=== PATIENT | female | born 1945 | race Caucasian/White ===

== ENCOUNTER 2019-11-27 12:47 | Day surgery (SDC) | payer MEDICARE, MEDICAID, SELFPAY ==
--- NOTE | 2019-11-27 12:58 | US_ITS ---
EXAMINATION: ULTRASOUND-GUIDED PARACENTESIS CLINICAL INFORMATION: Malignant ascites COMPARISON: Previous abdominal ultrasound October 2019 TECHNIQUE: Procedure and risks and benefits including bleeding, infection and low blood pressure were discussed with the patient and informed consent was obtained. The right lower quadrant was prepped and draped in usual sterile fashion. The skin and soft tissues were anesthetized with 1% lidocaine plain. Using ultrasound guidance and a 5 [place] rapid catheter, access to the ascitic fluid was obtained. 1.4 L of dark clear yellow fluid was removed. No diagnostic specimen was sent. FINDINGS: There is a small amount of ascites. IMPRESSION: Ultrasound-guided paracentesis. MTDD
== END 2019-11-27 23:59 ==
LOC: HO.SSS 11-29 13:02
PROVIDERS: Visit Provider Internal Medicine
DX: C85.18 Unspecified B-cell lymphoma, lymph nodes of multiple sites (principal); R18.0 Malignant ascites; J45.909 Unspecified asthma, uncomplicated; I10 Essential (primary) hypertension; Z79.899 Other long term (current) drug therapy
CPT/HCPCS: 49083

== ENCOUNTER 2019-12-09 16:06 | Inpatient (IN) | payer MEDICARE, OTHER, SELFPAY ==
[2019-12-09 19:28] VITALS: BP 179/79; PULSE 75; RESP 16; TEMP 37.1; O2SAT 97; BMI 25.0
[2019-12-09 19:30] VITALS: BP 179/79; PULSE 75; RESP 16; TEMP 37.1; O2SAT 97
--- NOTE | 2019-12-09 21:06 | CT_ITS ---
EXAMINATION: CT SOFT TISSUE NECK WITHOUT CONTRAST CLINICAL INFORMATION: Right parotid sialolithiasis with cellulitis. History of lymphoma. COMPARISON: CT neck 03/18/2019. TECHNIQUE: Helical imaging was performed in the axial plane with generation of coronal and sagittal reformatted images. This CT examination was performed using dose optimization techniques as appropriate, variously including the following: *Automated exposure control. *Adjustment of mA and/or kV according to patient size (this includes techniques or standardized protocols for targeted exams where dose is matched to indication/reason for exam; i.e. extremities or head). *Use of iterative reconstruction technique. DLP: 286 mGy-cm FINDINGS: There is worsening, enlarging, masses in the neck in patient with known lymphoma. 1. In the midline submental location, there is now a soft tissue rounded mass measuring 2.2 cm transverse, sagittal image 27 series 5. This lesion measured 1 cm on CAT scan of 03/18/2019. 2. There are masses in the right and left parotid glands. The largest of these are at the angle of the mandible in the right parotid gland lying within the gland. This measures 2.5 cm, axial image 35 series 2. This lesion previously measured 1.9 cm on CAT scan of 03/18/2019. 3. In the left parotid gland, the largest mass seen centrally inferiorly measuring 2.7 cm, axial image 41 series 2. This mass previously measured 2 cm on CAT scan of 03/18/2019. 4. There are additional multiple smaller but enlarging soft tissue masses external to the parotid glands and the neck bilaterally. There is now significant edema around the right parotid gland and extending into the subcutaneous tissue of the right side of the neck. There is also some fluid or edema extending into the deep soft tissues around the carotid artery and extending inferiorly around the angle of the mandible and the submandibular soft tissues. Some edema is also seen in similar locations on the left but not as significant as seen on the right. There is no calcification seen involving the parotid glands or the expected location of the parotid duct. The partially visualized intracranial structures are normal. The orbital globes and retrobulbar structures are normal. There is normal aeration of the paranasal sinuses. The mastoid air cells and middle ear cavities are normally aerated. There is multilevel degenerative spondylosis of the spine. Superior mediastinum demonstrates vascular calcifications of the aorta and great vessels. There is an irregular nodule in the right upper lobe measuring 0.8 cm, axial image 105 series 2. This measured 0.4 cm on prior CAT scan of 03/18/2019. CT/CT soft tissue neck wo con IMPRESSION: 1. Worsening and enlarging masses in the neck bilateral consistent with history of lymphoma. There is edema around the parotid glands bilateral right worse than left. No calcification seen involving the parotid glands or the expected location of the parotid duct. 2. Enlarging irregular nodule in the right upper lobe now measuring 0.8 cm. Previous measurement 0.4 cm on CAT scan of 03/18/2019.
--- NOTE | 2019-12-09 21:07 | ED.GENADULT ---
HPI - General Adult General Chief complaint: General Medical Stated complaint: FACIAL SWELLING Time Seen by Provider: 12/09/19 20:58 Source: patient and family Mode of arrival: ambulatory Limitations: no limitations History of Present Illness HPI narrative: patient's history of B-cell lymphoma stage III/IV with bilateral cervical lymphadenopathy brought by her daughter for increased swelling and redness of right parotid area for last 3 - 4 days patient was seen by oncologist and sent here for further evaluation. Patient denies any fever, swelling started all of a sudden increases on chewing. patient was given a trial of rituximab which she could not tolerate Related Data Home Medications Medication Instructions Recorded Confirmed amlodipine 1 tab PO DAILY 11/27/19 12/09/19 aspirin 1 tab PO DAILY 11/27/19 12/09/19 carvedilol 1 tab PO BID 11/27/19 12/09/19 ezetimibe 1 tab PO DAILY 11/27/19 12/09/19 furosemide 1 tab PO DAILY 11/27/19 12/09/19 ibuprofen 1 tab PO Q6H PRN 11/27/19 12/09/19 ipratropium-albuterol [Combivent 1 puff INHALATION QID PRN 11/27/19 12/09/19 Respimat] levothyroxine 1 tab PO DAILY 11/27/19 12/09/19 losartan 1 tab PO DAILY 11/27/19 12/09/19 omeprazole 1 cap PO BID 11/27/19 12/09/19 spironolactone 1 tab PO BID 11/27/19 12/09/19 tramadol 1 tab PO Q8H PRN 11/27/19 12/09/19 umeclidinium [Incruse Ellipta] 1 puff INHALATION DAILY 11/27/19 12/09/19 Allergies Allergy/AdvReac Type Severity Reaction Status Date / Time atorvastatin AdvReac Unknown NASAL Verified 11/27/19 12:14 BLEEDING Review of Systems Review of Systems: REVIEW OF SYSTEMS: Pertinent positives and negatives are stated above in the history. GEN: no fevers, chills, fatigue HEENT: no nasal congestion, sore throat, ear pain NEURO: no headache, dizziness, focal weakness PULM: no cough, shortness of breath CV: no chest pain, palpitations, LE edema ABD: no abdominal pain, nausea, vomiting, diarrhea : no dysuria, urgency, frequency SKIN: no rash ROS otherwise negative x 10 PMFSH Past Medical History Medical History Ascites Asthma CAD (coronary artery disease) Cirrhosis of liver with ascites GERD (gastroesophageal reflux disease) High cholesterol Hypertension Hypothyroid Malignant ascites PAD (peripheral artery disease) Surgical History History of carotid endarterectomy History of quadruple bypass Hx of angioplasty Hx of CABG Social History Social History Alcohol intake: never Smoking Status: Never smoker Tobacco Type: Cigarette Packs Per Day: 1 Cigarettes Per Day: 20.0 Years Smoked: 60 Use of substances other than those prescribed or required for medical reasons: No Advance Directives: No Advance Directives Information Provided: Yes Physical Exam Vital Signs: Vital Signs: Vital Signs Temp Pulse Resp BP Pulse Ox 12/09/19 21:42 16 12/09/19 19:30 98.8 F 75 16 179/79 H 97 12/09/19 19:28 98.8 F 75 16 179/79 H 97 Body Mass Index 25.0 Appearance: Alert. Oriented X3. in moderate distress. Eyes: Pupils equal, round and reactive to light. ENT: increased swelling right side of the face patient able to open her mouth more than 2 cm , diffuse swelling with warmth and redness right parotid area spreading from the face all the way to the ear and submandibular area. Neck: Normal inspection. Neck supple. CVS: Normal heart rate and rhythm. Pulses normal. Respiratory: No respiratory distress. Breath sounds normal. Abdomen: Soft and nontender. Skin: Skin warm and dry. Extremities: No lower extremity edema. Good range of movement Neuro: Oriented X 3. No motor deficit. No sensory deficit. Const: General: cooperative and acute distress moderate Nutritional Appearance: average body habitus Orientation/consciousness: oriented to person, oriented to place and oriented to time Neuro: General: oriented to person, oriented to place and oriented to time Course Course Course Narrative: patient with worsening of lymphoma with soft tissue swelling edema around the right parotid gland suggestive of cellulitis with elevated WBC count. Will give IV antibiotics Zosyn plan to admit oncology to follow Medical Decision Making Lab Data Result diagrams: 12/09/19 21:41 12/09/19 22:19 Labs: Lab Results 12/09/19 12/09/19 12/09/19 Range/Units 21:41 21:41 21:41 WBC 18.4 H (4.8-10.8) X10*3/uL RBC 4.55 (4.20-5.50) X10*6/uL Hgb 12.7 (12.0-16.0) g/dl Hct 38.4 (37-47) % MCV 84.4 (80-98) fL MCH 27.9 (27.0-33.0) pg MCHC 33.1 (31.0-35.0) g/dl RDW 15.7 (11.0-16.0) % Plt Count 123 L (160-400) X10*3/uL MPV 10.3 (9.4-12.3) fL Immature Gran % (Auto) 0.3 (0.0-0.4) % Neut % (Auto) 85.1 H (45-73) % Lymph % (Auto) 7.9 L (20-40) % [place] % (Auto) 6.3 (2-11) % Eos % (Auto) 0.1 (0-4) % Baso % (Auto) 0.3 (0-2) % Lymph # (Auto) 1.5 (1.2-4.9) X10*3/uL [place] # (Auto) 1.2 (0.1-1.2) X10*3/uL Eos # (Auto) 0.0 (0.0-0.4) X10*3/uL Baso # (Auto) 0.1 (0.0-0.2) X10*3/uL Abs Immat Gran (auto) 0.06 H (0.00-0.03) X10*3/uL Absolute Neuts (auto) 15.7 H (2.0-8.3) X10*3/uL Absolute Nucleated RBC 0.000 (0.0-0.012) X10*3/uL Nucleated RBC % (auto) 0.0 (0.0-0.2) /100WBC Smear Tech's Comments VERIFIED Sodium Cancelled Potassium Cancelled Chloride Cancelled Carbon Dioxide Cancelled Anion Gap Cancelled BUN Cancelled Creatinine Cancelled Estim Creat Clear Calc Cancelled Estimated GFR Cancelled Random Glucose Cancelled Lactic Acid 1.4 (0.5-2.0) mmol/L Calcium Cancelled 12/09/19 Range/Units 22:19 WBC (4.8-10.8) X10*3/uL RBC (4.20-5.50) X10*6/uL Hgb (12.0-16.0) g/dl Hct (37-47) % MCV (80-98) fL MCH (27.0-33.0) pg MCHC (31.0-35.0) g/dl RDW (11.0-16.0) % Plt Count (160-400) X10*3/uL MPV (9.4-12.3) fL Immature Gran % (Auto) (0.0-0.4) % Neut % (Auto) (45-73) % Lymph % (Auto) (20-40) % [place] % (Auto) (2-11) % Eos % (Auto) (0-4) % Baso % (Auto) (0-2) % Lymph # (Auto) (1.2-4.9) X10*3/uL [place] # (Auto) (0.1-1.2) X10*3/uL Eos # (Auto) (0.0-0.4) X10*3/uL Baso # (Auto) (0.0-0.2) X10*3/uL Abs Immat Gran (auto) (0.00-0.03) X10*3/uL Absolute Neuts (auto) (2.0-8.3) X10*3/uL Absolute Nucleated RBC (0.0-0.012) X10*3/uL Nucleated RBC % (auto) (0.0-0.2) /100WBC Smear Tech's Comments Sodium 135 Potassium 3.1 L Chloride 103 Carbon Dioxide 22 Anion Gap 13 BUN 10 Creatinine 1.06 Estim Creat Clear Calc 40.9 Estimated GFR 51 Random Glucose 107 Lactic Acid (0.5-2.0) mmol/L Calcium 7.7 L Discharge Plan Discharge Clinical Impression: Lymphoma Qualifiers: Lymphoma type: non-Hodgkin Non-Hodgkin lymphoma type: B-cell 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 Qualified Code(s): 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
[2019-12-09 21:42] VITALS: RESP 16
[2019-12-09] MEDS: Morphine Sulfate 4 MG/ML CARTRIDGE IVPUSH (21:42)
[2019-12-09] MEDS: ondansetron HCL 4 MG/2 ML VIAL IVPUSH (21:42)
[2019-12-09] MEDS: 0.9 % Sodium Chloride 1,000 ML 999 ML IVCONT (21:42)
[2019-12-09 21:50] LABS: Basophils Percent Auto 0.3 % (0-2); Eosinophils Percent Auto 0.1 % (0-4); MANUAL DIFF FLAG SCAN; Mean Platelet Volume 10.3 fL (9.4-12.3); PLT CLUMP 1; SCAN SMEAR FLAG 1
[2019-12-09 21:52] LABS: Basophils Absolute Auto 0.1 X10*3/uL (0.0-0.2); Hematocrit 38.4 % (37-47); Hemoglobin 12.7 g/dl (12.0-16.0); Imm Gran Abs Auto 0.06 X10*3/uL (0.00-0.03); Imm Gran Pct Auto 0.3 % (0.0-0.4); Lymphocytes Absolute Auto 1.5 X10*3/uL (1.2-4.9); Lymphocytes Percent Auto 7.9 % (20-40); Mean Corpuscular HGB Conc 33.1 g/dl (31.0-35.0); Mean Corpuscular Hemoglobin 27.9 pg (27.0-33.0); Mean Corpuscular Volume 84.4 fL (80-98); Monocytes Absolute Auto 1.2 X10*3/uL (0.1-1.2); Monocytes Percent Auto 6.3 % (2-11); Neutrophils Absolute Auto 15.7 X10*3/uL (2.0-8.3); Neutrophils Percent Auto 85.1 % (45-73); Platelet Count 123 X10*3/uL (160-400); Red Blood Count 4.55 X10*6/uL (4.20-5.50); Red Cell Distribution Width 15.7 % (11.0-16.0); White Blood Count 18.4 X10*3/uL (4.8-10.8)
[2019-12-09 22:06] LABS: Lactic Acid 1.4 mmol/L (0.5-2.0)
[2019-12-09 22:32] LABS: SLIDE REVIEW VERIFIED
[2019-12-09] MEDS: Piperacillin Sodium/Tazobactam 3.375 GM in 0.9 % Sodium Chloride 50 ML IV (22:42)
[2019-12-09 22:50] LABS: Anion Gap 13 (12-20); Blood Urea Nitrogen 10 mg/dL (9-16); Calcium 7.7 mg/dL (8.4-10.2); Carbon Dioxide 22 mmol/L (22-29); Chloride 103 mmol/L (96-108); Creatinine Clr Calc Pharmacy 40.9; Estimated Glomerular Filt Rate 51; Glucose Random 107 mg/dL (60-115); Potassium 3.1 mmol/l (3.3-5.1); Sodium 135 mmol/L (135-145)
[2019-12-10] VITALS (13 sets, daily range): BP systolic 109–169; BP diastolic 52–72; PULSE 56–71; RESP 16–19; TEMP 36.1–37.4; O2SAT 92–99; BMI 24.7
--- NOTE | 2019-12-10 00:42 | P.HPIM_ITS ---
History of Present Illness Date of Service: 12/10/19 Chief Complaint: Facial swelling this is a 74-year-old female with past medical history of B-cell lymphoma diagnosed recently, hypertension, COPD, liver cirrhosis as well as coronary artery disease status post CABG who presents to the hospital with complaints of 4 day history of progressively worsening swelling of the right face. Patient reports that overnight her swelling worsened, was seen by her oncologist on the 02/08 who asked her to come to the hospital. Patient is having redness, severe pain on the right of face, as well as difficulty swallowing as a result of this swelling. She denies any fever or chills, she has no abdominal pain nausea or v omiting. No diarrhea or constipation. No urinary symptoms and no lower extremity edema. No new weakness numbness or tingling. Patient currently undergoing treatment for B-cell lymphoma but had a bad reaction to the immunotherapy but still wants to try again and therefore wants to discuss this with her oncologist. on arrival to the ED patient hemodynamically stable with no significant abnor mal vitals. Labs are significant for WBC count of 18.4, left shift, potassium of 3.1, CT of the face shows worsening and enlarging masses in the neck bilateral consistent with history of lymphoma. There is edema around the parotid gland bilateral right worse than left. No calcifications seen involving the parotid glands or the expected location of the parotid duct. Enlarging irregular nodule in the right upper lobe now measuring 0.8 cm patient will be admitted for further management past medical history: Hypertension, COPD, liver cirrhosis, B-cell lymphoma, hypothyroidism, peripheral artery disease past surgical history: carotid artery endarterectomy, CABG family history: Denies social history: Comes from home, smokes 1 pack per day, denies any alcohol or illicit drug Review of Systems Review of Systems: Yes all other systems are reviewed and are negative [facility] Medical History Ascites Asthma CAD (coronary artery disease) Cirrhosis of liver with ascites GERD (gastroesophageal reflux disease) High cholesterol Hypertension Hypothyroid Malignant ascites PAD (peripheral artery disease) Surgical History History of carotid endarterectomy History of quadruple bypass Hx of angioplasty Hx of CABG Social History Household Members: Children and Other Household Members Other:: daughter and great granddaughter Housing: Condominium Do you presently have visiting nurse or other home services: No Alcohol intake: never Smoking Status: Never smoker Tobacco Type: Cigarette Packs Per Day: 1 Cigarettes Per Day: 20.0 Years Smoked: 55 Smoked in Last 30 Days: Yes Patient Interested in Nicotine Replacement: No Patient Given Instructions on How to Stop Smoking: Yes Date Education Initiated: 12/10/19 Second Hand Smoke Exposure: Yes Use of substances other than those prescribed or required for medical reasons: No Have you been hit, kicked, punched, or otherwise hurt by someone within the past year? If so, by whom?: No Do you feel safe in your current relationship?: No Current Relationship Is there a partner from a previous relationship who is making you feel unsafe now?: No Are you made to feel afraid or neglected: No Advance Directives: No Advance Directives Information Provided: Yes Do you have thoughts of harming others: None Do you have a plan to hurt others: No Plan Recently lost weight without trying: No Meds Allergies Allergy/AdvReac Type Severity Reaction Status Date / Time atorvastatin AdvReac Unknown NASAL Verified 11/27/19 12:14 BLEEDING Home Medications Medication Instructions Recorded Confirmed Type amlodipine 1 tab PO DAILY 11/27/19 12/09/19 History aspirin 1 tab PO DAILY 11/27/19 12/09/19 History carvedilol 1 tab PO BID 11/27/19 12/09/19 History ezetimibe 1 tab PO DAILY 11/27/19 12/09/19 History furosemide 1 tab PO DAILY 11/27/19 12/09/19 History ibuprofen 1 tab PO Q6H PRN 11/27/19 12/09/19 History ipratropium-albuterol [Combivent 1 puff INHALATION QID PRN 11/27/19 12/09/19 History Respimat] levothyroxine 1 tab PO DAILY 11/27/19 12/09/19 History losartan 1 tab PO DAILY 11/27/19 12/09/19 History omeprazole 1 cap PO BID 11/27/19 12/09/19 History spironolactone 1 tab PO BID 11/27/19 12/09/19 History tramadol 1 tab PO Q8H PRN 11/27/19 12/09/19 History umeclidinium [Incruse Ellipta] 1 puff INHALATION DAILY 11/27/19 12/09/19 History Physical Exam Vital Signs and Narrative: Vital Signs: Last Vital Signs Temp 98.8 F 12/09/19 19:30 Pulse 75 12/09/19 19:30 Resp 16 12/09/19 21:42 BP 179/79 H 12/09/19 19:30 Pulse Ox 97 12/09/19 19:30 Body Mass Index 25.0 Const: General: cooperative and no acute distress Orientation/consciousness: patient oriented x3 HENMT: Other: significant swelling of the right fast as well as neck, erythema, tenderness Eyes: General: appearance normal, both eyes and all related structures Pupils: Equal, round and reactive pupils present Resp: Effort & Inspection: normal respiratory effort and able to speak in complete sentences Auscultation: clear to auscultation bilaterally Cardio: Rate: regular rate Rhythm: regular rhythm GI: Palpation (GI): Soft to palpation Auscultation: normal bowel sounds Skin: General skin exam: no rashes or lesions noted Neuro: General: patient oriented x3 Cranial nerves: Yes Equal, round and reactive pupils present Cognition (Neuro): normal cognition Extrem: General: Yes normal to inspection and Yes no pedal edema Results Labs Labs: Laboratory Tests 12/09/19 12/09/19 12/09/19 21:41 21:41 21:41 WBC 18.4 H RBC 4.55 Hgb 12.7 Hct 38.4 MCV 84.4 MCH 27.9 MCHC 33.1 RDW 15.7 Plt Count 123 L MPV 10.3 Immature Gran % (Auto) 0.3 Neut % (Auto) 85.1 H Lymph % (Auto) 7.9 L [place] % (Auto) 6.3 Eos % (Auto) 0.1 Baso % (Auto) 0.3 Lymph # (Auto) 1.5 [place] # (Auto) 1.2 Eos # (Auto) 0.0 Baso # (Auto) 0.1 Abs Immat Gran (auto) 0.06 H Absolute Neuts (auto) 15.7 H Absolute Nucleated RBC 0.000 Nucleated RBC % (auto) 0.0 Smear Tech's Comments VERIFIED Sodium Cancelled Potassium Cancelled Chloride Cancelled Carbon Dioxide Cancelled Anion Gap Cancelled BUN Cancelled Creatinine Cancelled Estim Creat Clear Calc Cancelled Estimated GFR Cancelled Random Glucose Cancelled Lactic Acid 1.4 Calcium Cancelled 12/09/19 22:19 WBC RBC Hgb Hct MCV MCH MCHC RDW Plt Count MPV Immature Gran % (Auto) Neut % (Auto) Lymph % (Auto) [place] % (Auto) Eos % (Auto) Baso % (Auto) Lymph # (Auto) [place] # (Auto) Eos # (Auto) Baso # (Auto) Abs Immat Gran (auto) Absolute Neuts (auto) Absolute Nucleated RBC Nucleated RBC % (auto) Smear Tech's Comments Sodium 135 Potassium 3.1 L Chloride 103 Carbon Dioxide 22 Anion Gap 13 BUN 10 Creatinine 1.06 Estim Creat Clear Calc 40.9 Estimated GFR 51 Random Glucose 107 Lactic Acid Calcium 7.7 L Imaging soft tissue neck CT: Radiologist's impression: IMPRESSION: 1. Worsening and enlarging masses in the neck bilateral consistent with history of lymphoma. There is edema around the parotid glands bilateral right worse than left. No calcification seen involving the parotid glands or the expected location of the parotid duct. 2. Enlarging irregular nodule in the right upper lobe now measuring 0.8 cm. Previous measurement 0.4 cm on CAT scan of 03/18/2019. 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 # Parotid gland enlargement /cellulitis - CT of the neck shows edema around the parotid gland bilaterally right worse than left - History of B-cell lymphoma following with oncologist currently - patient also has erythema, tenderness, and no swelling concerning for cellulitis plan: - Will start on antibiotics - pain management - oncology consult # B-cell lymphoma - patient reports that she had a bad reaction to immunotherapy, would like to retry it and therefore will consult oncologist for discussion with patient # cirrhosis of liver with ascites - continue spironolactone, and furosemide # hypertension - continue losartan and amlodipine # coronary artery disease status post CAB - continue aspirin, carvedilol # hypothyroidism - continue levothyroxine # GERD - continue omeprazole DVT prophylaxis: Heparin subcu
[2019-12-10 02:03] LABS: SARS COV2 PCR INHOUSE NEGATIVE (Negative)
[2019-12-10] MEDS: Heparin Sodium,Porcine 5,000 UNIT/ML VIAL 5000 UNIT SUBCUT ×2 (02:39→13:06)
[2019-12-10] MEDS: 0.9 % Sodium Chloride 1,000 ML 100 ML IVCONT ×2 (02:39→12:57)
[2019-12-10] MEDS: Morphine Sulfate 4 MG/ML CARTRIDGE IVPUSH ×2 (03:29→13:07)
[2019-12-10] MEDS: Flu Vacc QS2020-21(6mos up)/PF 0.5 ML SYRINGE IM (03:31)
[2019-12-10] MEDS: Levothyroxine Sodium 150 MCG TABLET PO (06:02)
[2019-12-10] MEDS: Albuterol/Iprat 2.5/0.5MG 3 ML AMPUL.NEB INHALE ×4 (07:17→23:55)
[2019-12-10] MEDS: Furosemide 40 MG TABLET PO (08:25)
[2019-12-10] MEDS: amLODIPine Besylate 2.5 MG TABLET PO (08:25)
[2019-12-10] MEDS: Omeprazole 20 MG CAPSULE.DR PO ×2 (08:25→21:41)
[2019-12-10] MEDS: Spironolactone 25 MG TABLET PO ×2 (08:25→21:41)
[2019-12-10] MEDS: Aspirin Enteric Coated 81 MG TABLET.DR PO (08:25)
[2019-12-10] MEDS: cefTRIAXone sodium 1 GM in 0.9 % Sodium Chloride 50 ML IV (08:26)
[2019-12-10] MEDS: Losartan Potassium 25 MG TABLET PO (08:26)
[2019-12-10] MEDS: Potassium Chloride Packet 20 MEQ PACKET 40 MEQ PO (08:26)
[2019-12-10] MEDS: Ezetimibe 10 MG TABLET PO (08:26)
[2019-12-10] MEDS: carvediloL 12.5 MG TABLET PO ×2 (08:26→21:43)
[2019-12-10] MEDS: 0.9 % Sodium Chloride Flush 3 ML SYRINGE IVFLUSH ×2 (08:30→16:48)
--- NOTE | 2019-12-10 10:12 | MHC.CM.PN ---
CM met with patient at the bedside who reports her dtr and granddaughter are living with her and is independent. Patient does not have a HCP and declines filling one out today after education was provided. Discussed discharge plan, home no services. Family will provide transport. PCP is at [facility].
--- NOTE | 2019-12-10 12:56 | PM.HEMONCCN ---
Subjective - Subjective Chief complaint: Painful swelling of neck nodes Patient: known to practice within the last 3 years Consult date: 12/10/19 Primary Care Provider: Unknown Physician HPI - Consult Narrative Reason for consult: Worsening lymphadenopathy, history of lymphoma Narrative: Diana Sharif is a 74 year old female who is admitted for painful swelling of lymph nodes in neck and parotid nodules. Diagnosed with liver cirrhosis, abdominal adenopathy and ascites in August 2018. Paracentesis performed 08/22/2018, ascites was negative for carcinoma. But atypical CD 20 positive B cells which lacks surface light chain expression, negative for CD5 and CD10 comprising 23% of lymphocytes. Raised concern for B-cell lymphoproliferative disorder. Lymph node biopsy from left abdomen performed 11/01/2018. Flow cytometry detected clonal CD 20 positive B-cell population that expresses CD 23 and dim surface lambda light chain, negative for CD5 and CD10. Differential diagnosis includes marginal zone lymphoma and lymphoplasmacytic lymphoma. She was is treated with rituximab, 1st cycle she developed severe allergic/infusion reaction. This was discontinued. Subsequently patient refused all other treatment. She underwent therapeutic paracentesis a month ago for recurrent ascites. She developed painful swelling of neck nodes in the last 2-3 days. This was rather abrupt in onset, associated with fatigue lack of appetite but no reports of fever or chills. She is not having any hoarseness of voice or difficulty swallowing food. Review of Systems - Constitutional Reports as per HPI, Reports no additional constitutional complaints - ENT Reports dental pain, Reports facial pain, Denies epistaxis, Reports neck pain, Denies sinus pressure, Denies sore throat - Cardiovascular Reports no additional cardiovascular complaints - Respiratory Reports no additional respiratory complaints - Gastrointestinal Reports no additional gastrointestinal complaints, Denies abdominal pain Oncology Screenings - ECOG Performance Status ECOG Performance Status: 3 [facility] Medical History: Medical History (Last Updated 12/10/19 @ 06:56 by Debra Knight MD) Ascites Asthma CAD (coronary artery disease) Cirrhosis of liver with ascites GERD (gastroesophageal reflux disease) High cholesterol Hypertension Hypothyroid Malignant ascites PAD (peripheral artery disease) Surgical History: Surgical History (Last Reviewed 12/10/19 @ 06:52 by Debra Knight MD) History of carotid endarterectomy History of quadruple bypass Hx of angioplasty Hx of CABG Smoking status: Never smoker Home Medications and Allergies Current Medications: Current Medications Generic Name Dose Route Start Last Admin Trade Name Freq PRN Reason Stop Dose Admin Acetaminophen 650 mg 12/10/19 01:06 Acetaminophen 325 Mg Tablet PO Q6H PRN Pain, Mild (Pain Scale 1-3) Albuterol/Ipratropium 3 ml 12/10/19 12:00 12/10/19 11:10 Albuterol/Iprat 2.5/0.5mg 3 Ml Ampul.Neb INHALE 3 ml RQ6H PAULIE Administration Amlodipine Besylate 2.5 mg 12/10/19 09:00 12/10/19 08:25 Amlodipine Besylate 2.5 Mg Tablet PO 2.5 mg DAILY PAULIE Administration Protocol Aspirin 81 mg 12/10/19 09:00 12/10/19 08:25 Aspirin Enteric Coated 81 Mg Tablet.Dr PO 81 mg DAILY PAULIE Administration Carvedilol 12.5 mg 12/10/19 09:00 12/10/19 08:26 Carvedilol 12.5 Mg Tablet PO 12.5 mg BID PAULIE Administration Protocol Docusate Sodium 100 mg 12/10/19 01:06 Docusate Sodium 100 Mg Capsule PO DAILY PRN Constipation Ezetimibe 10 mg 12/10/19 09:00 12/10/19 08:26 Ezetimibe 10 Mg Tablet PO 10 mg DAILY PAULIE Administration Furosemide 40 mg 12/10/19 09:00 12/10/19 08:25 Furosemide 40 Mg Tablet PO 40 mg DAILY PAULIE Administration Protocol Heparin Sodium (Porcine) 5,000 unit 12/10/19 01:06 12/10/19 02:39 Heparin Sodium,Porcine 5,000 Unit/Ml Vial SUBCUT 5,000 unit Q12H PAULIE Administration Sodium Chloride 1,000 mls @ 100 mls/hr 12/10/19 01:06 12/10/19 02:39 Ns IVCONT 100 mls/hr .Q10H PAULIE Administration Ceftriaxone Sodium 1 gm/ 50 mls @ 100 mls/hr 12/10/19 07:15 12/10/19 08:56 Sodium Chloride IV Infused Q24H PAULIE Infusion Levothyroxine Sodium 150 mcg 12/10/19 06:30 12/10/19 06:02 Levothyroxine Sodium 150 Mcg Tablet PO 150 mcg DAILY@0630 PAULIE Administration Losartan Potassium 25 mg 12/10/19 09:00 12/10/19 08:26 Losartan Potassium 25 Mg Tablet PO 25 mg DAILY PAULIE Administration Protocol Morphine Sulfate 4 mg 10/27/20 01:06 12/10/19 03:29 Morphine Sulfate 4 Mg/Ml Cartridge IVPUSH 4 mg Q4H PRN Administration Pain, Severe (Pain Scale 7-10) Non-Formulary Medication 1 puff 12/10/19 09:00 Umeclidinium [Incruse Ellipta] INHALE DAILY [facility] Omeprazole 20 mg 12/10/19 09:00 12/10/19 08:25 Omeprazole 20 Mg Capsule.Dr PO 20 mg BID PAULIE Administration Ondansetron HCl 4 mg 12/10/19 01:06 Ondansetron Hcl 4 Mg/2 Ml Vial IVPUSH Q8H PRN Nausea and Vomiting Sodium Chloride 3 ml 12/10/19 08:00 12/10/19 08:30 0.9 % Sodium Chloride Flush 3 Ml Syringe IVFLUSH 3 ml QSHIFT [facility] Administration Spironolactone 25 mg 12/10/19 09:00 12/10/19 08:25 Spironolactone 25 Mg Tablet PO 25 mg BID [facility] Administration Protocol Tramadol HCl 50 mg 12/10/19 01:06 Tramadol Hcl 50 Mg Tablet PO Q8H PRN severe pain Home Medications Medication Instructions Recorded Confirmed Type amlodipine 1 tab PO DAILY 11/27/19 12/09/19 History aspirin 1 tab PO DAILY 11/27/19 12/09/19 History carvedilol 1 tab PO BID 11/27/19 12/09/19 History ezetimibe 1 tab PO DAILY 11/27/19 12/09/19 History furosemide 1 tab PO DAILY 11/27/19 12/09/19 History ibuprofen 1 tab PO Q6H PRN 11/27/19 12/09/19 History ipratropium-albuterol [Combivent 1 puff INHALATION QID PRN 11/27/19 12/09/19 History Respimat] levothyroxine 1 tab PO DAILY 11/27/19 12/09/19 History losartan 1 tab PO DAILY 11/27/19 12/09/19 History omeprazole 1 cap PO BID 11/27/19 12/09/19 History spironolactone 1 tab PO BID 11/27/19 12/09/19 History tramadol 1 tab PO Q8H PRN 11/27/19 12/09/19 History umeclidinium [Incruse Ellipta] 1 puff INHALATION DAILY 11/27/19 12/09/19 History Allergies Allergy/AdvReac Type Severity Reaction Status Date / Time atorvastatin AdvReac Unknown NASAL Verified 11/27/19 12:14 BLEEDING Physical Exam Vital signs: Vital Signs Temp 97.1 F 12/10/19 11:46 Pulse 56 12/10/19 11:46 Resp 18 12/10/19 11:46 BP 114/52 L 12/10/19 11:46 Pulse Ox 96 12/10/19 11:46 Intake & Output 12/09/19 12/10/19 12/10/19 18:59 06:59 18:59 Intake Total 1170 / 1170 50 / 50 Balance 1170 / 1170 50 / 50 Intake: Intake, Oral Amount 120 / 120 Intake, IV Amount 1050 / 1050 50 / 50 Piperacillin Sodium/Tazobactam 50 / 50 3.375 gm In 0.9 % Sodium Chloride 50 ml @ 100 mls/hr IV ONCE ONE Rx#:[id number] cefTRIAXone sodium 1 gm In 0.9 50 / 50 % Sodium Chloride 50 ml @ 100 mls/hr IV Q24H [facility] Rx#: [id number] 0.9 % Sodium Chloride 1,000 ml 1000 / 1000 @ 999 mls/hr IVCONT .Q1H1M [facility] Rx#:[id number] Other: Weight 61.5 kg Weight 61.5 kg - Constitutional Present: mild distress - Routine HEENT Exam Head: Present: normal inspection Eye: Present: EOMI - Routine Neck Exam Present: lymphadenopathy, tenderness, swelling. Absent: full ROM - Routine Respiratory Exam Present: decreased breath sounds. Absent: accessory muscle use - Routine Cardiovascular Exam Cardiovascular: Present: S1, S2 - Routine Abdominal Exam Present: soft. Absent: mass - Routine Extremities Exam Present: pedal edema Hem/Onc Consult Result - Labs CBC & Chem 7: 12/09/19 21:41 12/09/19 22:19 Labs: Short CBC 12/09/19 Range/Units 21:41 WBC 18.4 H (4.8-10.8) X10*3/uL Hgb 12.7 (12.0-16.0) g/dl Hct 38.4 (37-47) % Plt Count 123 L (160-400) X10*3/uL BMP 12/09/19 12/09/19 21:41 22:19 Sodium Cancelled 135 Potassium Cancelled 3.1 L Chloride Cancelled 103 Carbon Dioxide Cancelled 22 BUN Cancelled 10 Creatinine Cancelled 1.06 Calcium Cancelled 7.7 L Assessment and Plan (1) Lymphoma Status: Chronic Qualifiers: Lymphoma type: non-Hodgkin Non-Hodgkin lymphoma type: B-cell 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 Bone marrow biopsy performed November 2018 revealed involvement by B-cell non-Hodgkin lymphoma, favor marginal zone lymphoma. Stage III/IV. CT neck performed 12/09/2019 revealed: Worsening and enlarging masses in the neck bilateral consistent with history of lymphoma. There is edema around the parotid glands bilateral right worse than left. She has significant inflammation/? Infectious etiology with clinical signs of warmth and tenderness of the neck nodes. She is on ceftriaxone and she reports some improvement in the pain. Await ID input before proceeding with biopsy of the lymph node. Since her previous biopsy was over a year ago and she has not received any treatment, it would be advisable to repeat biopsy at this time. I have discussed this with patient and her granddaughter at the bedside.
[2019-12-10 13:45] LABS: Lactate Dehydrogenase 178 U/L (122-220)
--- NOTE | 2019-12-10 15:18 | P.CNID_ITS ---
History of Present Illness Data of Consult Service Date: 12/10/19 Requesting physician: Gilda Mcleod Primary Care Provider: Unknown Physician HPI Reason for consult: swelling face She has 2-3 days worsening swelling face submandibular She has no high grade fever or chills She has no injury to area Scan shows lymphoma concern Review of Systems Review of Systems: Yes all other systems are reviewed and are negative PMFSH Past Medical History Medical History Ascites Asthma CAD (coronary artery disease) Cirrhosis of liver with ascites GERD (gastroesophageal reflux disease) High cholesterol Hypertension Hypothyroid Malignant ascites PAD (peripheral artery disease) Surgical History Surgical History History of carotid endarterectomy History of quadruple bypass Hx of angioplasty Hx of CABG Social History Social History Household Members: Children and Other Housing: Condominium Alcohol intake: never Smoking Status: Never smoker Tobacco Type: Cigarette Packs Per Day: 1 Cigarettes Per Day: 20.0 Years Smoked: 55 Second Hand Smoke Exposure: Yes service: No Current occupational status: retired [employer] Allergies Allergy/AdvReac Type Severity Reaction Status Date / Time atorvastatin AdvReac Unknown NASAL Verified 11/27/19 12:14 BLEEDING Home Medications Medication Instructions Recorded Confirmed Type Combivent Respimat 1 puff INHALATION QID PRN 11/27/19 12/09/19 History Incruse Ellipta 1 puff INHALATION DAILY 11/27/19 12/09/19 History amlodipine 1 tab PO DAILY 11/27/19 12/09/19 History aspirin 1 tab PO DAILY 11/27/19 12/09/19 History carvedilol 1 tab PO BID 11/27/19 12/09/19 History ezetimibe 1 tab PO DAILY 11/27/19 12/09/19 History furosemide 1 tab PO DAILY 11/27/19 12/09/19 History ibuprofen 1 tab PO Q6H PRN 11/27/19 12/09/19 History levothyroxine 1 tab PO DAILY 11/27/19 12/09/19 History losartan 1 tab PO DAILY 11/27/19 12/09/19 History omeprazole 1 cap PO BID 11/27/19 12/09/19 History spironolactone 1 tab PO BID 11/27/19 12/09/19 History tramadol 1 tab PO Q8H PRN 11/27/19 12/09/19 History Physical Exam Vital Signs: Vital Signs: Vital Signs Temp Pulse Resp BP Pulse Ox 12/10/19 11:46 97.1 F 56 18 114/52 L 96 12/10/19 08:26 62 138/67 12/10/19 08:25 62 138/67 12/10/19 08:00 99.4 F 62 18 138/67 93 12/10/19 03:35 98.0 F 68 18 166/72 H 95 12/10/19 03:29 18 12/10/19 02:21 97 F 71 18 155/64 H 94 12/10/19 00:00 99.3 F 66 17 169/64 H 99 12/09/19 21:42 16 12/09/19 19:30 98.8 F 75 16 179/79 H 97 12/09/19 19:28 98.8 F 75 16 179/79 H 97 Body Mass Index 24.7 Const: General: cooperative HENMT: Other: swollen mandibular area firm Face and sinus: Yes normal facial exam Mouth: Normal oral and palatal mucosa present Throat: Yes posterior oropharynx normal Eyes: General: appearance normal, both eyes and all related structures Resp: Effort & Inspection: normal respiratory effort Cardio: Rate: regular rate Rhythm: regular rhythm GI: Inspection: Yes normal to inspection Skin: General skin exam: no rashes or lesions noted Extrem: General: Yes normal to inspection Assessment and Plan (1) Lymphoma: Qualifiers: 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 Lymphoma type: non-Hodgkin Non-Hodgkin lymphoma type: B-cell Qualified Code(s): C83.01 - Small cell B-cell lymphoma, lymph nodes of head, face, and neck Status: Chronic She has swelling in glands She has no evidence of infection She has pain opening mouth Stop antibiotics Biopsy and check pathology (2) Parotid gland enlargement: Status: Acute (3) Hypothyroid: Status: Acute Results Labs CBC & Chem 7: 12/11/19 05:36 12/11/19 05:36 Labs: Short CBC 12/09/19 Range/Units 21:41 WBC 18.4 H (4.8-10.8) X10*3/uL Hgb 12.7 (12.0-16.0) g/dl Hct 38.4 (37-47) % Plt Count 123 L (160-400) X10*3/uL BMP 12/09/19 12/09/19 21:41 22:19 Sodium Cancelled 135 Potassium Cancelled 3.1 L Chloride Cancelled 103 Carbon Dioxide Cancelled 22 BUN Cancelled 10 Creatinine Cancelled 1.06 Calcium Cancelled 7.7 L
--- NOTE | 2019-12-10 17:13 | HO.PM.IMPN ---
Subjective Subjective Date of Service: 12/10/19 Interval History: Submandibular swelling Review of Systems still has swleling ,seems slightly improving , denies any shortness of breath Physical Exam Vital Signs: Vital Signs: Vital Signs Temp Pulse Resp BP Pulse Ox 12/10/19 15:28 97.8 F 59 16 109/53 L 96 12/10/19 11:46 97.1 F 56 18 114/52 L 96 12/10/19 08:26 62 138/67 12/10/19 08:25 62 138/67 12/10/19 08:00 99.4 F 62 18 138/67 93 12/10/19 03:35 98.0 F 68 18 166/72 H 95 12/10/19 03:29 18 12/10/19 02:21 97 F 71 18 155/64 H 94 12/10/19 00:00 99.3 F 66 17 169/64 H 99 12/09/19 21:42 16 12/09/19 19:30 98.8 F 75 16 179/79 H 97 12/09/19 19:28 98.8 F 75 16 179/79 H 97 Body Mass Index 24.7 Physical exam: Heent: Submandibular swelling. No fluctuation. Cvs: [id number], [id number] , no murmur res: clear to auscultation ,no rales or rhonchii abd: no rebound or guarding ,nt, bs present. ext pulses present , no cyanosis neuro: axo3 , nonfocal. Objective Data Current Medications Generic Name Dose Route Start Last Admin Trade Name Kurtisq PRN Reason Stop Dose Admin Acetaminophen 650 mg 12/10/19 01:06 Acetaminophen 325 Mg Tablet PO Q6H PRN Pain, Mild (Pain Scale 1-3) Albuterol/Ipratropium 3 ml 12/10/19 12:00 12/10/19 16:58 Albuterol/Iprat 2.5/0.5mg 3 Ml Ampul.Neb INHALE 3 ml RQ6H PAULIE Administration Amlodipine Besylate 2.5 mg 12/10/19 09:00 12/10/19 08:25 Amlodipine Besylate 2.5 Mg Tablet PO 2.5 mg DAILY PAULIE Administration Protocol Aspirin 81 mg 12/10/19 09:00 12/10/19 08:25 Aspirin Enteric Coated 81 Mg Tablet. PO 81 mg DAILY PAULIE Administration Carvedilol 12.5 mg 12/10/19 09:00 12/10/19 08:26 Carvedilol 12.5 Mg Tablet PO 12.5 mg BID PAULIE Administration Protocol Docusate Sodium 100 mg 12/10/19 01:06 Docusate Sodium 100 Mg Capsule PO DAILY PRN Constipation Ezetimibe 10 mg 12/10/19 09:00 12/10/19 08:26 Ezetimibe 10 Mg Tablet PO 10 mg DAILY PAULIE Administration Furosemide 40 mg 12/10/19 09:00 12/10/19 08:25 Furosemide 40 Mg Tablet PO 40 mg DAILY PAULIE Administration Protocol Heparin Sodium (Porcine) 5,000 unit 12/10/19 01:06 12/10/19 13:06 Heparin Sodium,Porcine 5,000 Unit/Ml Vial SUBCUT 5,000 unit Q12H PAULIE Administration Sodium Chloride 1,000 mls @ 100 mls/hr 12/10/19 01:06 12/10/19 12:57 Ns IVCONT 100 mls/hr .Q10H PAULIE Administration Levothyroxine Sodium 150 mcg 12/10/19 06:30 12/10/19 06:02 Levothyroxine Sodium 150 Mcg Tablet PO 150 mcg DAILY@0630 PAULIE Administration Losartan Potassium 25 mg 12/10/19 09:00 12/10/19 08:26 Losartan Potassium 25 Mg Tablet PO 25 mg DAILY [facility] Administration Protocol Morphine Sulfate 4 mg 12/10/19 01:06 12/10/19 13:07 Morphine Sulfate 4 Mg/Ml Cartridge IVPUSH 4 mg Q4H PRN Administration Pain, Severe (Pain Scale 7-10) Non-Formulary Medication 1 puff 12/10/19 09:00 Umeclidinium [Incruse Ellipta] INHALE DAILY [facility] Omeprazole 20 mg 12/10/19 09:00 12/10/19 08:25 Omeprazole 20 Mg Capsule.Dr PO 20 mg BID PAULIE Administration Ondansetron HCl 4 mg 12/10/19 01:06 Ondansetron Hcl 4 Mg/2 Ml Vial IVPUSH Q8H PRN Nausea and Vomiting Sodium Chloride 3 ml 12/10/19 08:00 12/10/19 16:48 0.9 % Sodium Chloride Flush 3 Ml Syringe IVFLUSH 3 ml QSHIFT PAULIE Administration Spironolactone 25 mg 12/10/19 09:00 12/10/19 08:25 Spironolactone 25 Mg Tablet PO 25 mg BID PAULIE Administration Protocol Tramadol HCl 50 mg 12/10/19 01:06 Tramadol Hcl 50 Mg Tablet PO Q8H PRN severe pain Labs CBC & Chem 7: 12/09/19 21:41 12/09/19 22:19 Assessment and Plan (1) Parotid gland enlargement: Status: Acute (2) Lymphoma: Status: Chronic Assessment and Plan: 74-year-old female with B-cell lymphoma who presents to the hospital with facial swelling. 1. Lyphoma vs cellulitis - CT of the neck shows edema around the parotid gland bilaterally right worse than left - History of B-cell lymphoma following with oncologist currently - patient also has erythema, tenderness, and no swelling concerning for cellulitis continue on antibiotics,pain management, ID and oncology eval. 2. B-cell lymphoma: noted to be thought patient reports that she had a bad reaction to immunotherapy, would like to retry it and therefore will consult oncologist for discussion with patient 3. cirrhosis of liver with ascites: continue spironolactone, and furosemide 4. hypertension: continue losartan and amlodipine 5. coronary artery disease status post CAB: continue aspirin, carvedilol 6. hypothyroidism- continue levothyroxine 7. GERD: continue omeprazole
[2019-12-11] VITALS (8 sets, daily range): BP systolic 129–176; BP diastolic 60–75; PULSE 58–82; RESP 16–19; TEMP 36.4–36.7; O2SAT 92–100
[2019-12-11] MEDS: Heparin Sodium,Porcine 5,000 UNIT/ML VIAL 5000 UNIT SUBCUT ×2 (01:23→13:25)
[2019-12-11] MEDS: 0.9 % Sodium Chloride 1,000 ML 100 ML IVCONT ×2 (02:21→11:09)
[2019-12-11] MEDS: Albuterol/Iprat 2.5/0.5MG 3 ML AMPUL.NEB INHALE ×3 (06:06→17:31)
[2019-12-11 06:21] LABS: MANUAL DIFF FLAG NO
[2019-12-11] MEDS: Levothyroxine Sodium 150 MCG TABLET PO (06:22)
[2019-12-11 06:37] LABS: Basophils Percent Auto 0.4 % (0-2); Eosinophils Absolute Auto 0.1 X10*3/uL (0.0-0.4); Eosinophils Percent Auto 0.7 % (0-4); Hematocrit 31.4 % (37-47); Imm Gran Abs Auto 0.06 X10*3/uL (0.00-0.03); Imm Gran Pct Auto 0.6 % (0.0-0.4); Lymphocytes Absolute Auto 1.4 X10*3/uL (1.2-4.9); Lymphocytes Percent Auto 14.2 % (20-40); Mean Corpuscular HGB Conc 31.8 g/dl (31.0-35.0); Mean Corpuscular Hemoglobin 27.7 pg (27.0-33.0); Mean Platelet Volume 11.2 fL (9.4-12.3); Monocytes Absolute Auto 0.7 X10*3/uL (0.1-1.2); Monocytes Percent Auto 7.4 % (2-11); Neutrophils Absolute Auto 7.6 X10*3/uL (2.0-8.3); Neutrophils Percent Auto 76.7 % (45-73); Platelet Count 114 X10*3/uL (160-400); Red Blood Count 3.61 X10*6/uL (4.20-5.50); Red Cell Distribution Width 15.9 % (11.0-16.0); White Blood Count 9.9 X10*3/uL (4.8-10.8)
[2019-12-11 06:58] LABS: Anion Gap 15 (12-20); Blood Urea Nitrogen 14 mg/dL (9-16); Calcium 7.7 mg/dL (8.4-10.2); Carbon Dioxide 23 mmol/L (22-29); Chloride 106 mmol/L (96-108); Creatinine Clr Calc Pharmacy 34.5; Estimated Glomerular Filt Rate 42; Glucose Random 79 mg/dL (60-115); Potassium 3.6 mmol/l (3.3-5.1); Sodium 140 mmol/L (135-145)
[2019-12-11] MEDS: Omeprazole 20 MG CAPSULE.DR PO ×2 (08:28→21:23)
[2019-12-11] MEDS: Spironolactone 25 MG TABLET PO ×2 (08:28→21:23)
[2019-12-11] MEDS: amLODIPine Besylate 2.5 MG TABLET PO (08:28)
[2019-12-11] MEDS: Losartan Potassium 25 MG TABLET PO (08:28)
[2019-12-11] MEDS: Ezetimibe 10 MG TABLET PO (08:29)
[2019-12-11] MEDS: Furosemide 40 MG TABLET PO (08:29)
[2019-12-11] MEDS: Aspirin Enteric Coated 81 MG TABLET.DR PO (08:29)
[2019-12-11] MEDS: carvediloL 12.5 MG TABLET PO ×2 (08:29→21:24)
--- NOTE | 2019-12-11 12:51 | MHC.CM.PN ---
Patient's discharge plan is home no services. family will provide transport.
--- NOTE | 2019-12-11 15:53 | HO.PM.IMPN ---
Subjective Subjective Date of Service: 12/11/19 Interval History: Submandibular swelling Review of Systems Swelling in the neck area seems improving, denies any fever or chills. Physical Exam Vital Signs: Vital Signs: Vital Signs Temp Pulse Resp BP Pulse Ox 12/11/19 15:31 97.5 F 69 19 141/62 H 97 12/11/19 11:51 97.9 F 60 18 133/63 100 12/11/19 07:46 97.7 F 72 18 145/67 H 97 12/11/19 03:24 97.9 F 58 16 129/62 92 12/10/19 23:32 98.3 F 58 16 122/60 96 12/10/19 21:43 64 135/63 12/10/19 21:41 64 135/63 12/10/19 20:00 98.3 F 56 19 129/60 92 Body Mass Index 24.7 Physical exam: Heent: Submandibular swelling. No fluctuation. Cvs: [id number], [id number] , no murmur res: clear to auscultation ,no rales or rhonchii abd: no rebound or guarding ,nt, bs present. ext pulses present , no cyanosis neuro: axo3 , nonfocal. Objective Data Current Medications Generic Name Dose Route Start Last Admin Trade Name Freq PRN Reason Stop Dose Admin Acetaminophen 650 mg 12/10/19 01:06 Acetaminophen 325 Mg Tablet PO Q6H PRN Pain, Mild (Pain Scale 1-3) Albuterol/Ipratropium 3 ml 12/10/19 12:00 12/11/19 11:50 Albuterol/Iprat 2.5/0.5mg 3 Ml Ampul.Neb INHALE 3 ml RQ6H PAULIE Administration Amlodipine Besylate 2.5 mg 12/10/19 09:00 12/11/19 08:28 Amlodipine Besylate 2.5 Mg Tablet PO 2.5 mg DAILY PAULIE Administration Protocol Aspirin 81 mg 12/10/19 09:00 12/11/19 08:29 Aspirin Enteric Coated 81 Mg Tablet.Dr PO 81 mg DAILY PAULIE Administration Carvedilol 12.5 mg 12/10/19 09:00 12/11/19 08:29 Carvedilol 12.5 Mg Tablet PO 12.5 mg BID PAULIE Administration Protocol Docusate Sodium 100 mg 10/27/20 01:06 Docusate Sodium 100 Mg Capsule PO DAILY PRN Constipation Ezetimibe 10 mg 12/10/19 09:00 12/11/19 08:29 Ezetimibe 10 Mg Tablet PO 10 mg DAILY PAULIE Administration Furosemide 40 mg 12/10/19 09:00 12/11/19 08:29 Furosemide 40 Mg Tablet PO 40 mg DAILY PAULIE Administration Protocol Heparin Sodium (Porcine) 5,000 unit 12/10/19 01:06 12/11/19 13:25 Heparin Sodium,Porcine 5,000 Unit/Ml Vial SUBCUT 5,000 unit Q12H PAULIE Administration Levothyroxine Sodium 150 mcg 12/10/19 06:30 12/11/19 06:22 Levothyroxine Sodium 150 Mcg Tablet PO 150 mcg DAILY@0630 PAULIE Administration Losartan Potassium 25 mg 12/10/19 09:00 12/11/19 08:28 Losartan Potassium 25 Mg Tablet PO 25 mg DAILY PAULIE Administration Protocol Non-Formulary Medication 1 puff 12/10/19 09:00 Umeclidinium [Incruse Ellipta] INHALE DAILY [facility] Omeprazole 20 mg 12/10/19 09:00 12/11/19 08:28 Omeprazole 20 Mg Capsule.Dr PO 20 mg BID [facility] Administration Ondansetron HCl 4 mg 12/10/19 01:06 Ondansetron Hcl 4 Mg/2 Ml Vial IVPUSH Q8H PRN Nausea and Vomiting Sodium Chloride 3 ml 12/10/19 08:00 12/11/19 11:09 0.9 % Sodium Chloride Flush 3 Ml Syringe IVFLUSH Not Given QSHIFT [facility] Spironolactone 25 mg 12/10/19 09:00 12/11/19 08:28 Spironolactone 25 Mg Tablet PO 25 mg BID [facility] Administration Protocol Tramadol HCl 50 mg 12/10/19 01:06 Tramadol Hcl 50 Mg Tablet PO Q8H PRN severe pain Labs CBC & Chem 7: 12/11/19 05:36 12/11/19 05:36 Microbiology Microbiology Results: Microbiology 12/09/19 22:19 Blood - Venous Blood Culture - Preliminary No growth after 24 hours. 12/09/19 21:41 Blood - Venous Blood Culture - Preliminary No growth after 24 hours. Assessment and Plan (1) Parotid gland enlargement: Status: Acute (2) Lymphoma: Status: Chronic Assessment and Plan: 74-year-old female with B-cell lymphoma who presents to the hospital with facial swelling. 1. Lyphoma vs cellulitis: CT of the neck shows edema around the parotid gland bilaterally right worse than left - History of B-cell lymphoma following with oncologist currently Initially patient was thought to be cellulitis and started on IV antibiotic and subsequently was seen by infectious disease thought to be more like malignancy rather than infection. Discussed with the Oncology-patient needs biopsy in the morning. NPO past midnight Hold DVT chemoprophylaxis in anticipation of biopsy , placed on mechanical devices 2. B-cell lymphoma: noted to be thought patient reports that she had a bad reaction to immunotherapy, would like to retry it and therefore will consult oncologist for discussion with patient 3. cirrhosis of liver with ascites: continue spironolactone, and furosemide 4. hypertension: continue losartan and amlodipine 5. coronary artery disease status post CAB: continue carvedilol, hold asa -needs biopsy 6. hypothyroidism- continue levothyroxine 7. GERD: continue omeprazole
[2019-12-11] MEDS: 0.9 % Sodium Chloride Flush 3 ML SYRINGE IVFLUSH ×2 (18:48→21:34)
--- NOTE | 2019-12-12 | US_ITS ---
PROCEDURE: ULTRASOUND-GUIDED RIGHT NECK LYMPH NODE BIOPSY. CLINICAL INFORMATION: Bilateral parotid masses and right neck lymph nodes. Previous history of B-cell lymphoma and refused treatment after allergic response to drugs. COMPARISON: Nothing recent. Previous CT neck without IV contrast 03/18/2019. TECHNIQUE: Following explaining ultrasound-guided right neck lymph node biopsy procedure, benefits and risk, a written consent was obtained. Patient was placed in left decubitus view and preliminary ultrasound imaging was obtained through the right neck. A right intraparotid mass and a right neck lymph node slightly inferiorly to the parotid gland were identified. The skin is inflamed. The area of the right neck lymph node was marked on the skin, cleaned and draped in usual sterile manner. 1% local Xylocaine was injected at the marked site. Through a small skin incision a 20-gauge 10 inch long needle was inserted and a 4-5 pass neck biopsy was performed. Fluid collected was sent for flow cytometry and cytosol solution for pathology evaluation. Postbiopsy complete hemostasis achieved at puncture site. Patient tolerated procedure extremely well. Simple band aid applied postprocedure. FINDINGS: There are 2 masses seen one an intraparotid lesion measuring 2.28 cm and a right neck lymph node slightly inferiorly. The right neck lymph node was biopsied with 5 passes performed. US/US guide needle placement IMPRESSION: Successful ultrasound-guided right neck lymph node core biopsy performed. Sample collected was sent to flow cytometry and cytosol solution.
--- NOTE | 2019-12-12 | US_ITS ---
PROCEDURE: ULTRASOUND-GUIDED RIGHT NECK LYMPH NODE BIOPSY. CLINICAL INFORMATION: Bilateral parotid masses and right neck lymph nodes. Previous history of B-cell lymphoma and refused treatment after allergic response to drugs. COMPARISON: Nothing recent. Previous CT neck without IV contrast 03/18/2019. TECHNIQUE: Following explaining ultrasound-guided right neck lymph node biopsy procedure, benefits and risk, a written consent was obtained. Patient was placed in left decubitus view and preliminary ultrasound imaging was obtained through the right neck. A right intraparotid mass and a right neck lymph node slightly inferiorly to the parotid gland were identified. The skin is inflamed. The area of the right neck lymph node was marked on the skin, cleaned and draped in usual sterile manner. 1% local Xylocaine was injected at the marked site. Through a small skin incision a 20-gauge 10 inch long needle was inserted and a 4-5 pass neck biopsy was performed. Fluid collected was sent for flow cytometry and cytosol solution for pathology evaluation. Postbiopsy complete hemostasis achieved at puncture site. Patient tolerated procedure extremely well. Simple band aid applied postprocedure. FINDINGS: There are 2 masses seen one an intraparotid lesion measuring 2.28 cm and a right neck lymph node slightly inferiorly. The right neck lymph node was biopsied with 5 passes performed. US/US biopsy lymph node IMPRESSION: Successful ultrasound-guided right neck lymph node core biopsy performed. Sample collected was sent to flow cytometry and cytosol solution.
[2019-12-12 03:29] VITALS: BP 151/57; PULSE 78; RESP 19; TEMP 36.4; O2SAT 97
[2019-12-12] MEDS: Levothyroxine Sodium 150 MCG TABLET PO (06:25)
[2019-12-12 08:00] VITALS: BP 162/72; PULSE 73; RESP 18; TEMP 37.1; O2SAT 98
[2019-12-12 09:21] VITALS: BP 162/72; PULSE 73
[2019-12-12] MEDS: 0.9 % Sodium Chloride Flush 3 ML SYRINGE IVFLUSH ×2 (09:21→15:43)
[2019-12-12] MEDS: Spironolactone 25 MG TABLET PO (09:21)
[2019-12-12 09:22] VITALS: BP 162/72; PULSE 73
[2019-12-12] MEDS: Losartan Potassium 25 MG TABLET PO (09:22)
[2019-12-12] MEDS: Omeprazole 20 MG CAPSULE.DR PO (09:22)
[2019-12-12] MEDS: Ezetimibe 10 MG TABLET PO (09:22)
[2019-12-12] MEDS: Furosemide 40 MG TABLET PO (09:22)
[2019-12-12] MEDS: amLODIPine Besylate 2.5 MG TABLET PO (09:22)
[2019-12-12] MEDS: carvediloL 12.5 MG TABLET PO (09:22)
[2019-12-12 11:54] VITALS: BP 158/75; PULSE 92; RESP 18; TEMP 36.7; O2SAT 99
[2019-12-12] MEDS: Albuterol/Iprat 2.5/0.5MG 3 ML AMPUL.NEB INHALE (12:18)
[2019-12-12] MEDS: Lidocaine HCl 1 % MPF 5 ML VIAL SUBCUT (13:21)
[2019-12-12 15:53] VITALS: BP 152/69; PULSE 67; RESP 18; TEMP 36.6; O2SAT 100
--- NOTE | 2019-12-12 17:00 | HO.PM.IMPN ---
Subjective Subjective Date of Service: 12/12/19 Interval History: Neck mass Review of Systems Neck masses-swelling and erythema seems improved significantly Physical Exam Vital Signs: Vital Signs: Vital Signs Temp Pulse Resp BP Pulse Ox 12/12/19 15:53 97.8 F 67 18 152/69 H 100 12/12/19 11:54 98.0 F 92 18 158/75 H 99 12/12/19 09:22 73 162/72 H 12/12/19 09:21 73 162/72 H 12/12/19 08:00 98.7 F 73 18 162/72 H 98 12/12/19 03:29 97.6 F 78 19 151/57 H 97 12/11/19 23:28 97.5 F 82 19 157/75 H 97 12/11/19 21:24 70 176/60 H 12/11/19 21:23 70 176/60 H 12/11/19 19:20 98.0 F 76 19 143/71 H 96 Body Mass Index 24.7 Objective Data Current Medications Generic Name Dose Route Start Last Admin Trade Name Fre PRN Reason Stop Dose Admin Acetaminophen 650 mg 12/10/19 01:06 Acetaminophen 325 Mg Tablet PO Q6H PRN Pain, Mild (Pain Scale 1-3) Albuterol/Ipratropium 3 ml 12/10/19 12:00 12/12/19 12:18 Albuterol/Iprat 2.5/0.5mg 3 Ml Ampul.Neb INHALE 3 ml RQ6H PAULIE Administration Amlodipine Besylate 2.5 mg 12/10/19 09:00 12/12/19 09:22 Amlodipine Besylate 2.5 Mg Tablet PO 2.5 mg DAILY PAULIE Administration Protocol Aspirin 81 mg 12/10/19 09:00 12/12/19 09:21 Aspirin Enteric Coated 81 Mg Tablet.Dr PO Not Given DAILY PAULIE Carvedilol 12.5 mg 12/10/19 09:00 12/12/19 09:22 Carvedilol 12.5 Mg Tablet PO 12.5 mg BID PAULIE Administration Protocol Docusate Sodium 100 mg 12/10/19 01:06 Docusate Sodium 100 Mg Capsule PO DAILY PRN Constipation Ezetimibe 10 mg 12/10/19 09:00 12/12/19 09:22 Ezetimibe 10 Mg Tablet PO 10 mg DAILY PAULIE Administration Furosemide 40 mg 12/10/19 09:00 12/12/19 09:22 Furosemide 40 Mg Tablet PO 40 mg DAILY [facility] Administration Protocol Heparin Sodium (Porcine) 5,000 unit 12/10/19 01:06 12/12/19 13:09 Heparin Sodium,Porcine 5,000 Unit/Ml Vial SUBCUT Not Given Q12H [facility] Levothyroxine Sodium 150 mcg 12/10/19 06:30 12/12/19 06:25 Levothyroxine Sodium 150 Mcg Tablet PO 150 mcg DAILY@0630 [facility] Administration Losartan Potassium 25 mg 12/10/19 09:00 12/12/19 09:22 Losartan Potassium 25 Mg Tablet PO 25 mg DAILY [facility] Administration Protocol Non-Formulary Medication 1 puff 12/10/19 09:00 Umeclidinium [Incruse Ellipta] INHALE DAILY [facility] Omeprazole 20 mg 12/10/19 09:00 12/12/19 09:22 Omeprazole 20 Mg Capsule.Dr PO 20 mg BID [facility] Administration Ondansetron HCl 4 mg 12/10/19 01:06 Ondansetron Hcl 4 Mg/2 Ml Vial IVPUSH Q8H PRN Nausea and Vomiting Sodium Chloride 3 ml 12/10/19 08:00 12/12/19 15:43 0.9 % Sodium Chloride Flush 3 Ml Syringe IVFLUSH 3 ml QSHIFT [facility] Administration Spironolactone 25 mg 12/10/19 09:00 12/12/19 09:21 Spironolactone 25 Mg Tablet PO 25 mg BID [facility] Administration Protocol Tramadol HCl 50 mg 12/10/19 01:06 Tramadol Hcl 50 Mg Tablet PO Q8H PRN severe pain Labs CBC & Chem 7: 12/11/19 05:36 12/11/19 05:36 Microbiology Microbiology Results: Microbiology 12/09/19 22:19 Blood - Venous Blood Culture - Preliminary No growth after 48 hours. 12/09/19 21:41 Blood - Venous Blood Culture - Preliminary No growth after 48 hours.
--- NOTE | 2019-12-12 17:46 | PM.DS ---
DS: Providers Provider Date of admission: 12/10/19 00:39 Primary care physician: Unknown Physician Consults: 12/10/19 01:06 Consult to Physician Routine Consulting Provider: Yen Ferreira Reason for consultation: worsening lymphoma Has provider been notified: No 12/10/19 10:01 Consult to Infectious Diseases Routine Consulting Provider: Danuta Umana Reason for consultation: ? Neck cellulitis vs lympoma med reaction Has provider been notified: No DS: Diagnosis Discharge Diagnosis (1) Parotid gland enlargement: Status: Acute (2) Lymphoma: Status: Chronic DS: Summary Hospital Course Hospital Course: HPI:74-year-old female with past medical history of B-cell lymphoma diagnosed recently, hypertension, COPD, liver cirrhosis as well as coronary artery disease status post CABG who presents to the hospital with complaints of 4 day history of progressively worsening swelling of the right face. Patient reports that overnight her swelling worsened, was seen by her oncologist on the 02/08 who asked her to come to the hospital. Patient is having redness, severe pain on the right of face, as well as difficulty swallowing as a result of this swelling. She denies any fever or chills, she has no abdominal pain nausea or vomiting. No diarrhea or constipation. No urinary symptoms and no lower extremity edema. No new weakness numbness or tingling. Patient currently undergoing treatment for B-cell lymphoma but had a bad reaction to the immunotherapy but still wants to try again and therefore wants to discuss this with her oncologist. on arrival to the ED patient hemodynamically stable with no significant abnormal vitals. Labs are significant for WBC count of 18.4, left shift, potassium of 3.1, CT of the face shows worsening and enlarging masses in the neck bilateral consistent with history of lymphoma. There is edema around the parotid gland bilateral right worse than left. No calcifications seen involving the parotid glands or the expected location of the parotid duct. Enlarging irregular nodule in the right upper lobe now measuring 0.8 cm. 74-year-old female with B-cell lymphoma who presents to the hospital with facial swelling. 1. Lyphoma vs cellulitis: CT of the neck shows edema around the parotid gland bilaterally right worse than left - History of B-cell lymphoma following with oncologist currently. Patient was initially started on IV antibiotics for suspicion of cellulitis, furthermore patient was seen by both Oncology as well as ID: Thought to be probably patient has malignancy rather than cellulitis. Patient is status post biopsy Patient was initially started on IV antibiotics for suspicion of probable infection in some mandibular area subsequently seen by infectious disease and oncology the suspicion is more likely malignancy-neck mass was biopsied today patient is to follow-up with Dr. Ferreira outpatient for further management. Patient is to follow-up with biopsy outpatient with Dr. Ferreira. Above management discussed with the patient in detail length she understand and in agreement with the above plan, time spent 50 minutes and 50% time spent on counseling. Significant findings: As above. Procedures performed: None. Treatment and response: As above. Complications: None. Time Spent with Patient Time attestation: Total time spent providing and/or coordinating discharge services: Physical Exam Vital Signs: Vital Signs: Vital Signs Temp Pulse Resp BP Pulse Ox 12/12/19 15:53 97.8 F 67 18 152/69 H 100 12/12/19 11:54 98.0 F 92 18 158/75 H 99 12/12/19 09:22 73 162/72 H 12/12/19 09:21 73 162/72 H 12/12/19 08:00 98.7 F 73 18 162/72 H 98 12/12/19 03:29 97.6 F 78 19 151/57 H 97 12/11/19 23:28 97.5 F 82 19 157/75 H 97 12/11/19 21:24 70 176/60 H 12/11/19 21:23 70 176/60 H 12/11/19 19:20 98.0 F 76 19 143/71 H 96 Body Mass Index 24.7 Physical exam: heent: neck area swelling -seems improving Cvs: rrr, [id number] , no murmur res: clear to auscultation ,no rhonchii or wheezing abd: no rebound or guarding ,nt, bs present. ext pulses present , no cyanosis neuro: axo3 , nonfocal. DS: Data Data Completed and Pending Pending studies at discharge: Pending at discharge 12/12/19 14:30 Surgical [PTH] Routine Labs on day of discharge: Labs from last 24 hours 12/12/19 14:30 Leuk/Lymph Viability Pending Leuk/Lym Source Pending Leuk/Lym Sample Descrip Pending Leuk/Lym # of Markers Pending Leuk/Lym Markers Pending L/L Additional Markers Pending Leuk/Lym Gating Strategy Pending Leuk/Lym Comment Pending Leuk/Lym Interpretation Pending Preliminary micro results at discharge 12/09/19 22:19 Blood Culture - Preliminary Blood - Venous No growth after 48 hours. 12/09/19 21:41 Blood Culture - Preliminary Blood - Venous No growth after 48 hours. Discharge Plan Discharge Patient Disposition: Home, Self-Care Referrals: Physician,Unknown [Primary Care Provider] - Discharge Medications: Continued furosemide 40 mg tablet 1 tab PO DAILY RF: 0 carvedilol 12.5 mg tablet 1 tab PO BID RF: 0 amlodipine 2.5 mg tablet 1 tab PO DAILY RF: 0 aspirin 81 mg tablet,delayed release (DR/EC) 1 tab PO DAILY RF: 0 tramadol 50 mg tablet 1 tab PO Q8H PRN (Reason: severe pain) RF: 0 spironolactone 25 mg tablet 1 tab PO BID RF: 0 levothyroxine 150 mcg tablet 1 tab PO DAILY RF: 0 losartan 25 mg tablet 1 tab PO DAILY RF: 0 omeprazole 20 mg capsule,delayed release(DR/EC) 1 cap PO BID RF: 0 ibuprofen 600 mg tablet 1 tab PO Q6H PRN (Reason: pain) RF: 0 ezetimibe 10 mg tablet 1 tab PO DAILY RF: 0 Incruse Ellipta 62.5 mcg/actuation blister with device 1 puff inhalation DAILY RF: 0 Combivent Respimat 20-100 mcg/actuation mist 1 puff inhalation QID PRN (Reason: Shortness Of Breath) RF: 0 Discharge Orders: Discharge Order (Routine); Ordered 12/12/19 Ordered By: Gilda Mcleod Diet: advance to your usual diet Activity on Discharge: As tolerated Visit Report Forms: Patient Portal Discharge page Care Plan Goals: Patient was initially started on IV antibiotics for suspicion of probable infection in some mandibular area subsequently seen by infectious disease and oncology the suspicion is more likely malignancy-neck mass was biopsied today patient is to follow-up with Dr. Ferreira outpatient for further management. Patient is to follow-up with biopsy outpatient with Dr. Ferreira. Health Concerns: As above. Plan of Treatment: As above.
[2019-12-13 17:52] LABS: LLE Markers 23
== END 2019-12-12 19:00 | disposition home or self-care (01) | DRG 155 ==
LOC: HO.ED 12-10 00:28 → HO.IMC 12-10 01:02 → HO.S3 12-11 12:07
PROVIDERS: Internal Medicine; Admitting Provider Internal Medicine; Emergency Provider Internal Medicine; Visit Provider Internal Medicine
DX: K11.1 Hypertrophy of salivary gland (principal); C83.01 Small cell B-cell lymphoma, lymph nodes of head, face, and neck; L03.221 Cellulitis of neck; R18.8 Other ascites; I25.10 Atherosclerotic heart disease of native coronary artery without angina pectoris; F17.210 Nicotine dependence, cigarettes, uncomplicated; K21.9 Gastro-esophageal reflux disease without esophagitis; E03.9 Hypothyroidism, unspecified; Z71.6 Tobacco abuse counseling; Z20.828 Contact with and (suspected) exposure to other viral communicable diseases; K74.60 Unspecified cirrhosis of liver; Z23 Encounter for immunization; Z95.1 Presence of aortocoronary bypass graft; Z79.1 Long term (current) use of non-steroidal anti-inflammatories (NSAID); Z79.82 Long term (current) use of aspirin; Z79.891 Long term (current) use of opiate analgesic; Z79.899 Other long term (current) drug therapy
CPT/HCPCS: 36415; 38505; 70490; 76942; 80048; 83605; 83615; 85025; 87040; 87635; 88184; 88185; 88189; 88300; 88305; 88341; 88342; 88360; 90686; 96361; 96365; 96375; 99285; J2270; J2405

== ENCOUNTER → 2019-12-25 15:22 | Outpatient (BNVA) | payer MEDICARE, OTHER, SELFPAY | PROVIDERS: Visit Provider Internal Medicine Cardiovascular Disease | DX: I42.9 Cardiomyopathy, unspecified (principal); I73.9 Peripheral vascular disease, unspecified; K74.60 Unspecified cirrhosis of liver; C83.01 Small cell B-cell lymphoma, lymph nodes of head, face, and neck | CPT/HCPCS: 99212 ==

== ENCOUNTER 2020-01-31 07:30 | Day surgery (SDC) | payer MEDICARE, OTHER, SELFPAY ==
[2020-01-30 12:34] VITALS: BMI 23.8
[2020-01-30 12:35] VITALS: BMI 23.8
[2020-01-31] VITALS (8 sets, daily range): BP systolic 144–169; BP diastolic 51–67; PULSE 50–66; RESP 16–18; TEMP 36.3–36.9; O2SAT 98–99
--- NOTE | 2020-01-31 | US_ITS ---
EXAMINATION: ULTRASOUND-GUIDED PARACENTESIS. CLINICAL INFORMATION: Malignant ascites. COMPARISON: None. TECHNIQUE: Following explaining ultrasound-guided thoracentesis procedure, benefits and risk, a written consent was obtained. Patient was placed supine on ultrasound table and preliminary ultrasound imaging was obtained through the abdomen. An optimal site was selected along the right lower quadrant laterally and marked. The marked site was cleaned and draped in usual sterile manner. 1% lidocaine was injected puncture site. A small skin incision a 5 Kinyarwanda Yueh catheter was inserted into the peritoneal space. After observing fluid return stylet was removed and catheter connected to vacuum bottle via connecting cannula. After obtaining all fluid and observing no more fluid return, catheter was removed and complete hemostasis achieved at puncture site. Patient tolerated procedure well. Sterile bandage applied postprocedure. FINDINGS: On preliminary ultrasound imaging there is a moderate amount of free fluid. Approximately 1.7 L of dark yellowish fluid was removed from the right lower quadrant. None of this fluid was sent to lab. US/US paracentesis abd w/image IMPRESSION: Successful ultrasound-guided therapeutic paracentesis performed of the proximal 1.7 L of documented fluid removed. None of this fluid was sent to lab.
[2020-01-31 07:49] LABS: Hemoglobin 10.1 g/dl (12.0-16.0); Mean Corpuscular Hemoglobin 28.3 pg (27.0-33.0); PLT CLUMP 1; Red Blood Count 3.57 X10*6/uL (4.20-5.50); SCAN SMEAR FLAG 1
[2020-01-31 07:51] LABS: Basophils Absolute Auto 0.1 X10*3/uL (0.0-0.2); Basophils Percent Auto 0.8 % (0-2); Eosinophils Absolute Auto 0.2 X10*3/uL (0.0-0.4); Eosinophils Percent Auto 3.2 % (0-4); Hematocrit 30.6 % (37-47); Imm Gran Abs Auto 0.02 X10*3/uL (0.00-0.03); Imm Gran Pct Auto 0.3 % (0.0-0.4); Lymphocytes Absolute Auto 1.8 X10*3/uL (1.2-4.9); Lymphocytes Percent Auto 28.2 % (20-40); MANUAL DIFF FLAG NO; Mean Corpuscular Volume 85.7 fL (80-98); Mean Platelet Volume 10.7 fL (9.4-12.3); Monocytes Absolute Auto 0.6 X10*3/uL (0.1-1.2); Monocytes Percent Auto 9.6 % (2-11); Neutrophils Absolute Auto 3.6 X10*3/uL (2.0-8.3); Neutrophils Percent Auto 57.9 % (45-73); Platelet Count 105 X10*3/uL (160-400); Red Cell Distribution Width 14.3 % (11.0-16.0); White Blood Count 6.3 X10*3/uL (4.8-10.8)
[2020-01-31 07:55] LABS: INTERNATIONAL NORM RATIO 1.2 (0.9-1.1); Prothrombin Time 13.8 SEC (10.8-13.0)
[2020-01-31] MEDS: Lidocaine HCl 1 % MPF 5 ML VIAL SUBCUT (09:33)
== END 2020-01-31 11:50 | disposition home or self-care (01) ==
PROVIDERS: Visit Provider Radiology Diagnostic Radiology
DX: C85.18 Unspecified B-cell lymphoma, lymph nodes of multiple sites (principal); R18.0 Malignant ascites
CPT/HCPCS: 36415; 49083; 85025; 85610; 85730

== ENCOUNTER 2020-03-13 09:21 | Day surgery (SDC) | payer MEDICARE, OTHER, SELFPAY ==
[2020-03-13 10:03] LABS: MANUAL DIFF FLAG NO
[2020-03-13 10:08] VITALS: BMI 23.7
[2020-03-13 10:09] LABS: Basophils Percent Auto 0.5 % (0-2); Eosinophils Absolute Auto 0.1 X10*3/uL (0.0-0.4); Eosinophils Percent Auto 1.6 % (0-4); Hematocrit 33.2 % (37-47); Hemoglobin 10.5 g/dl (12.0-16.0); Imm Gran Abs Auto 0.01 X10*3/uL (0.00-0.03); Imm Gran Pct Auto 0.2 % (0.0-0.4); Lymphocytes Absolute Auto 1.3 X10*3/uL (1.2-4.9); Lymphocytes Percent Auto 21.5 % (20-40); Mean Corpuscular HGB Conc 31.6 g/dl (31.0-35.0); Mean Corpuscular Hemoglobin 27.3 pg (27.0-33.0); Mean Corpuscular Volume 86.2 fL (80-98); Mean Platelet Volume 10.4 fL (9.4-12.3); Monocytes Absolute Auto 0.5 X10*3/uL (0.1-1.2); Monocytes Percent Auto 8.2 % (2-11); Neutrophils Absolute Auto 4.2 X10*3/uL (2.0-8.3); Platelet Count 113 X10*3/uL (160-400); Red Blood Count 3.85 X10*6/uL (4.20-5.50); Red Cell Distribution Width 14.6 % (11.0-16.0); White Blood Count 6.1 X10*3/uL (4.8-10.8)
[2020-03-13 10:12] LABS: INTERNATIONAL NORM RATIO 1.2 (0.9-1.1); Prothrombin Time 14.4 SEC (10.8-13.0)
[2020-03-13 10:14] LABS: Partial Thromboplastin Time 31.3 SEC (24.1-38.0)
--- NOTE | 2020-03-13 10:14 | US_ITS ---
EXAMINATION: ULTRASOUND-GUIDED PARACENTESIS. CLINICAL INFORMATION: Ascites. COMPARISON: None TECHNIQUE: Following explaining ultrasound-guided thoracentesis procedure, benefits and risk, a written consent was obtained. Patient was placed supine on ultrasound stretcher and preliminary ultrasound imaging was obtained. An optimal site was selected along the right upper/mid quadrant and marked. The marked site was cleaned and draped in usual sterile manner. 1% lidocaine was injected at puncture site. Through a small skin incision a 5 Czech Yueh catheter was inserted into the peritoneal space. After observing fluid return, stylet was withdrawn and catheter connected to vacuum bottle. After obtaining all fluid and observing no more fluid remaining, catheter was withdrawn and complete hemostasis achieved at puncture site. Sterile bandage applied postprocedure. Patient tolerated procedure extremely well. FINDINGS: On pre and the ultrasound imaging there is small to moderate amount of fluid especially in upper abdomen. Ultrasound-guided paracentesis performed with approximately 2.3 L of yellowish fluid drained. The fluid collected was sent to lab as per referring physician's orders. US/US paracentesis abd w/image IMPRESSION: Successful ultrasound-guided therapeutic paracentesis performed. Fluid collected was sent to lab for further analysis.
[2020-03-13 11:35] VITALS: BP 165/59; PULSE 63; RESP 16; TEMP 36.9; O2SAT 98
[2020-03-13] MEDS: Lidocaine HCl 1 % MPF 5 ML VIAL SUBCUT (11:42)
[2020-03-13 11:50] VITALS: BP 161/60; PULSE 64; RESP 16; O2SAT 98
[2020-03-13 12:20] VITALS: BP 169/61; PULSE 70; RESP 16; O2SAT 97
[2020-03-13 12:50] VITALS: BP 156/67; PULSE 66; RESP 16; O2SAT 100
[2020-03-13 13:33] VITALS: BP 160/63; PULSE 65; RESP 16; TEMP 36.4; O2SAT 98
== END 2020-03-13 23:59 | disposition home or self-care (01) ==
PROVIDERS: Radiology Diagnostic Radiology; Visit Provider Internal Medicine
DX: R19.8 Other specified symptoms and signs involving the digestive system and abdomen (principal)
CPT/HCPCS: 36415; 49083; 85025; 85610; 85730

== ENCOUNTER 2020-04-20 11:29 | Day surgery (SDC) | payer MEDICARE, OTHER, SELFPAY ==
--- NOTE | ~2020-04-20 | US_ITS ---
EXAMINATION: US-GUIDED PARACENTESIS CLINICAL INFORMATION: Ascites. COMPARISON: None. TECHNIQUE: Following explaining ultrasound-guided paracentesis procedure, benefits and risks, a written consent was obtained. Patient was placed supine on ultrasound stretcher and preliminary ultrasound imaging was obtained through the abdomen. An optimal site was selected along right mid abdomen and marked. The marked site was cleaned and draped in usual sterile manner. 1% lidocaine was injected at the puncture site. Through a small skin incision, a 5 [place] [employer] catheter was advanced into the peritoneal space. After observing fluid return, stylet was withdrawn and catheter connected to vacuum bottle via connecting cannula. After obtaining all fluid and observing no more fluid return, catheter was withdrawn and complete hemostasis achieved at the puncture site. Sterile band-aid applied at the puncture site. Patient tolerated procedure extremely well. FINDINGS: On preliminary ultrasound imaging, there is moderate ascites. Approximately 3.9 L of clear yellowish fluid was drained from the right lower quadrant without immediate complications. US/US paracentesis abd w/image IMPRESSION: Successful ultrasound-guided therapeutic paracentesis performed with approximately 3.9 L of clear yellowish fluid drained. None of this fluid was sent to lab.
[2020-04-20 11:51] VITALS: BMI 52.7
[2020-04-20 12:25] LABS: MANUAL DIFF FLAG NO
[2020-04-20 12:34] LABS: Basophils Absolute Auto 0.1 X10*3/uL (0.0-0.2); Basophils Percent Auto 0.9 % (0-2); Eosinophils Absolute Auto 0.1 X10*3/uL (0.0-0.4); Eosinophils Percent Auto 1.1 % (0-4); Hematocrit 34.4 % (37-47); Hemoglobin 11.1 g/dl (12.0-16.0); Imm Gran Abs Auto 0.02 X10*3/uL (0.00-0.03); Imm Gran Pct Auto 0.4 % (0.0-0.4); Lymphocytes Absolute Auto 1.3 X10*3/uL (1.2-4.9); Lymphocytes Percent Auto 23.9 % (20-40); Mean Corpuscular HGB Conc 32.3 g/dl (31.0-35.0); Mean Corpuscular Hemoglobin 27.3 pg (27.0-33.0); Mean Corpuscular Volume 84.7 fL (80-98); Mean Platelet Volume 10.3 fL (9.4-12.3); Monocytes Absolute Auto 0.4 X10*3/uL (0.1-1.2); Monocytes Percent Auto 7.8 % (2-11); Neutrophils Absolute Auto 3.7 X10*3/uL (2.0-8.3); Neutrophils Percent Auto 65.9 % (45-73); Platelet Count 124 X10*3/uL (160-400); Red Blood Count 4.06 X10*6/uL (4.20-5.50); Red Cell Distribution Width 15.2 % (11.0-16.0); White Blood Count 5.6 X10*3/uL (4.8-10.8)
[2020-04-20 12:35] LABS: INTERNATIONAL NORM RATIO 1.2 (0.9-1.1); Prothrombin Time 13.8 SEC (10.8-13.0)
[2020-04-20 12:37] LABS: Partial Thromboplastin Time 30.6 SEC (24.1-38.0)
[2020-04-20] MEDS: Lidocaine HCl 1 % MPF 5 ML VIAL SUBCUT (13:53)
[2020-04-20 13:55] VITALS: BP 160/66; PULSE 68; RESP 20; TEMP 37.2; O2SAT 97
[2020-04-20 14:10] VITALS: BP 160/65; PULSE 67; RESP 20; O2SAT 96
[2020-04-20 14:25] VITALS: BP 165/66; PULSE 66; RESP 20; O2SAT 96
[2020-04-20 14:40] VITALS: BP 165/68; PULSE 66; RESP 18
[2020-04-20 14:55] VITALS: BP 168/69; PULSE 68; RESP 18; O2SAT 97
[2020-04-20 15:29] VITALS: BP 167/70; PULSE 69; RESP 18
== END 2020-04-20 15:39 | disposition home or self-care (01) ==
PROVIDERS: Visit Provider Radiology Diagnostic Radiology
DX: R18.8 Other ascites (principal); C85.10 Unspecified B-cell lymphoma, unspecified site; K74.60 Unspecified cirrhosis of liver; J45.909 Unspecified asthma, uncomplicated; I25.10 Atherosclerotic heart disease of native coronary artery without angina pectoris; I10 Essential (primary) hypertension; Z95.1 Presence of aortocoronary bypass graft; Z98.61 Coronary angioplasty status; Z79.51 Long term (current) use of inhaled steroids; Z79.82 Long term (current) use of aspirin; Z79.899 Other long term (current) drug therapy; Z88.8 Allergy status to other drugs, medicaments and biological substances
CPT/HCPCS: 36415; 49083; 85025; 85610; 85730

== ENCOUNTER 2020-05-11 11:18 | Day surgery (SDC) | payer MEDICARE, OTHER, SELFPAY ==
--- NOTE | ~2020-05-11 | US_ITS ---
EXAMINATION: ULTRASOUND-GUIDED PARACENTESIS CLINICAL INFORMATION: Ascites COMPARISON: Previous exam most recent 04/20/2020 TECHNIQUE: Procedure risks and benefits including bleeding, infection and low blood pressure were discussed with the patient and informed consent was obtained. The right lower quadrant was prepped and draped in the usual sterile fashion. The skin and soft tissues were anesthetized with 1% lidocaine plain. Using ultrasound guidance and a 5-Greek rapid centesis catheter, access to the ascitic fluid was obtained. 3.9 L of clear yellow fluid was removed. No diagnostic specimen was sent. FINDINGS: There is a moderate amount of ascites. US/US paracentesis abd w/image IMPRESSION: Ultrasound-guided paracentesis.
[2020-05-11 13:03] VITALS: BMI 25.7
[2020-05-11 13:50] VITALS: BP 150/49; PULSE 56; RESP 14; TEMP 37.2; O2SAT 97
[2020-05-11] MEDS: Lidocaine HCl 1 % MPF 5 ML VIAL SUBCUT (13:51)
--- NOTE | 2020-05-11 13:59 | HO.RADPN ---
RADIOLOGY Narrative Narrative: RLQ paracentesis performed using 5 Fr rapidcentesis catheter. 3.9L clear yellow fluid removed. No specimen sent.
[2020-05-11 14:05] VITALS: BP 165/57; PULSE 47; RESP 16; O2SAT 96
[2020-05-11 14:32] VITALS: BP 154/59; PULSE 58; RESP 20; O2SAT 97
[2020-05-11 14:48] VITALS: BP 155/59; PULSE 58; RESP 20; O2SAT 98
== END 2020-05-11 15:00 | disposition home or self-care (01) ==
PROVIDERS: Radiology Diagnostic Radiology; Visit Provider Internal Medicine
DX: R18.8 Other ascites (principal); K74.60 Unspecified cirrhosis of liver; I10 Essential (primary) hypertension; J45.909 Unspecified asthma, uncomplicated
CPT/HCPCS: 49083

== ENCOUNTER 2020-05-27 12:37 | Day surgery (SDC) | payer MEDICARE, OTHER, SELFPAY ==
--- NOTE | ~2020-05-27 | US_ITS ---
EXAMINATION: ULTRASOUND INSERTION OF PLEURX CATHETER CLINICAL INFORMATION: Lymphoma. Cirrhosis. Malignant ascites. COMPARISON: None TECHNIQUE: Procedure and risks and benefits including bleeding, infection and low blood pressure were discussed with the patient and informed consent was obtained. All elements of maximal sterile barrier technique followed including use of cap, mask, sterile gown, sterile gloves, a sterile full body drape and hand hygiene. Also followed skin preparation with 2% chlorhexidine for cutaneous antisepsis, and sterile ultrasound preparation with sterile gel and probe cover when applicable. The right lower quadrant was prepped and draped in the usual sterile fashion. The skin and soft tissues were anesthetized with 1% lidocaine plain. Using ultrasound guidance and a 5 Slovak rapid centesis catheter, access to the ascitic fluid was obtained. The skin and soft tissues of the more inferior anterior right lower quadrant were anesthetized with 1% lidocaine plain. A small incision was made. A subcutaneous tunnel from the second to the first incision was anesthetized with 1% lidocaine plain. Using a tunneler, a 15 Slovak Pleurx catheter was tunneled from the second to the first incision. An 035 guidewire was advanced through the 5 Slovak catheter into the peritoneal cavity. Following serial dilatation and through a peel-away sheath, Pleurx catheter was advanced into the peritoneal cavity. The initial incision was closed using a 3-0 absorbable subcuticular suture. The second incision was closed using a 3-0 absorbable mattress suture. 3.6 L of serosanguineous fluid was removed. Patient received Versed 0.5 mg and fentanyl 25 mcg intravenously during the procedure and 1 g IV Kefzol. Total sedation time was 25 minutes. No diagnostic specimen was sent. FINDINGS: There is a moderate amount of ascites. US/US insertion pluerx cath IMPRESSION: Ultrasound-guided right lower quadrant tunneled Pleurx catheter placement.
[2020-05-27 13:14] LABS: MANUAL DIFF FLAG NO
[2020-05-27 13:19] LABS: Basophils Percent Auto 0.5 % (0-2); Eosinophils Absolute Auto 0.1 X10*3/uL (0.0-0.4); Eosinophils Percent Auto 0.6 % (0-4); Hematocrit 32.4 % (37-47); Hemoglobin 10.5 g/dl (12.0-16.0); Imm Gran Abs Auto 0.05 X10*3/uL (0.00-0.03); Imm Gran Pct Auto 0.6 % (0.0-0.4); Lymphocytes Absolute Auto 1.4 X10*3/uL (1.2-4.9); Lymphocytes Percent Auto 16.8 % (20-40); Mean Corpuscular HGB Conc 32.4 g/dl (31.0-35.0); Mean Corpuscular Hemoglobin 27.6 pg (27.0-33.0); Mean Platelet Volume 9.5 fL (9.4-12.3); Monocytes Absolute Auto 0.6 X10*3/uL (0.1-1.2); Monocytes Percent Auto 7.5 % (2-11); Neutrophils Absolute Auto 6.1 X10*3/uL (2.0-8.3); Platelet Count 106 X10*3/uL (160-400); Red Blood Count 3.81 X10*6/uL (4.20-5.50); Red Cell Distribution Width 16.3 % (11.0-16.0); White Blood Count 8.2 X10*3/uL (4.8-10.8)
[2020-05-27 13:26] LABS: INTERNATIONAL NORM RATIO 1.1 (0.9-1.1); Prothrombin Time 12.8 SEC (10.8-13.0)
[2020-05-27 14:01] VITALS: BMI 21.9
--- NOTE | 2020-05-27 15:07 | HO.RADPN ---
RADIOLOGY Narrative Narrative: RLQ 15 Fr pleurex catheter placed in right lower quadrant. 3.6 L fluid removed.
[2020-05-27 15:20] VITALS: BP 146/58; PULSE 63; RESP 16; TEMP 37.3; O2SAT 94
[2020-05-27] MEDS: Lidocaine HCl 1 % MPF 5 ML VIAL 15 ML SUBCUT (15:31)
[2020-05-27 15:35] VITALS: BP 147/60; PULSE 67; RESP 16; O2SAT 94
[2020-05-27 15:50] VITALS: BP 151/63; PULSE 65; RESP 16; TEMP 37.6; O2SAT 94
[2020-05-27 16:05] VITALS: BP 157/65; PULSE 66; RESP 16; TEMP 37.2; O2SAT 94
[2020-05-27 16:15] VITALS: BP 147/61; PULSE 65; RESP 16; TEMP 37.2; O2SAT 94
== END 2020-05-27 16:19 | disposition home or self-care (01) ==
PROVIDERS: Radiology Diagnostic Radiology; Visit Provider Radiology Diagnostic Radiology
DX: C85.90 Non-Hodgkin lymphoma, unspecified, unspecified site (principal); R18.0 Malignant ascites; K74.60 Unspecified cirrhosis of liver; J45.909 Unspecified asthma, uncomplicated; I10 Essential (primary) hypertension; F17.210 Nicotine dependence, cigarettes, uncomplicated; Z79.51 Long term (current) use of inhaled steroids; Z79.899 Other long term (current) drug therapy
CPT/HCPCS: 32550; 36415; 85025; 85610; 85730; C1729; J0690; J2250; J3010

== ENCOUNTER 2020-06-04 15:25 | Outpatient (REF) | payer MEDICARE, OTHER, SELFPAY ==
--- NOTE | ~2020-06-04 | FL_ITS ---
EXAMINATION: FL FLUOROSCOPY CLINICAL INFORMATION: Leak in abdominal Pleurx catheter. COMPARISON: 05/27/2020 and 05/26/2020 TECHNIQUE: Fluoroscopic examination of right-sided abdominal Pleurx catheter. FINDINGS: There is noted to be some leakage of fluid around the drainage catheter coming out of the tract to the skin. The sideholes appear to be in good position and not lying within a tract. The catheter was placed to drainage bottle with approximately 250 mL of fluid being removed. An 18-gauge needle was then placed into the tube connected to the bottle with some Omnipaque contrast being injected. There is no evidence of extravasation of contrast within the tract and no evidence of contrast leakage until the first hole within the abdominal portion of the catheter. Tissue adhesive was then placed around the exit site on the skin and the catheter was redressed. If there is recurrent leaking then consideration for removal of the catheter and either replaced with a new catheter or having recurrent paracenteses. FLUOROSCOPY TIME: 0.6 minutes DOSE AREA PRODUCT: 4.668 Gy-cm2 9 images. FL/FL fluoroscopy <1hr IMPRESSION: Leakage of fluid around the catheter insertion site with no hole within the catheter identified within the subcutaneous catheter tract. Dermabond applied and catheter was redressed as described above.
== END 2020-06-04 15:26 | disposition home or self-care (01) ==
LOC: HO.XRAY 15:25
PROVIDERS: Absent Provider Internal Medicine; PCP Internal Medicine; Visit Provider Internal Medicine Medical Oncology
DX: J90 Pleural effusion, not elsewhere classified (principal)
CPT/HCPCS: 76000

== ENCOUNTER 2020-06-19 14:27 | Emergency (ER) | payer MEDICARE, OTHER, SELFPAY ==
--- NOTE | ~2020-06-19 | CT_ITS ---
EXAMINATION: CT BRAIN AND CT CERVICAL SPINE WITHOUT CONTRAST. CLINICAL INFORMATION: Mechanical fall. COMPARISON: CT brain 10/22/2018 TECHNIQUE: 5 mm thin axial and reformatted 2 mm thin sagittal and coronal images of brain were obtained. Subsequently 3 mm thin axial and reformatted 2 mm thin sagittal coronal images of cervical spine were obtained without contrast. DLP [id number] FINDINGS: BRAIN: There is no acute intra-axial, extra-axial bleed, masses or midline shift. There is no acute infarction in evolution. The lateral ventricles are symmetrical in size and mildly prominent. There is diffuse periventricular hypodensity in both cerebral hemispheres without mass effect. Bone windows reveal right scalp ventral scalp hematoma. There is a left frontoparietal scalp hematoma with surgical carin in place. There is no calvarial fracture. Bilateral paranasal sinuses and mastoid air cells are well-aerated. There is mild mucosal thickening right maxillary sinus. Rest of the paranasal sinuses and mastoid air cells are well-aerated. CERVICAL SPINE: There is normal cervical lordosis. The vertebral heights and alignment is normal. The disc heights is normal. There is moderate ventral spondylosis C4-C5, C5-C6 and C6-C7 disc levels. The craniovertebral junction and the C1-C2 alignment is normal. No visible acute fracture, dislocation or subluxation seen. CT/CT head/brain wo con IMPRESSION: No acute intracranial process seen. There is right frontal scalp hematoma without calvarial fracture. There is a left frontoparietal scalp laceration/hematoma with surgical carin. No calvarial fracture. Chronic right maxillary sinus inflammatory changes. There is no acute fracture or dislocation in cervical spine. Degenerative ventral spondylosis C4-C5 through C6-C7 disc levels.
--- NOTE | ~2020-06-19 | CT_ITS ---
EXAMINATION: CT BRAIN AND CT CERVICAL SPINE WITHOUT CONTRAST. CLINICAL INFORMATION: Mechanical fall. COMPARISON: CT brain 10/22/2018 TECHNIQUE: 5 mm thin axial and reformatted 2 mm thin sagittal and coronal images of brain were obtained. Subsequently 3 mm thin axial and reformatted 2 mm thin sagittal coronal images of cervical spine were obtained without contrast. DLP 960 FINDINGS: BRAIN: There is no acute intra-axial, extra-axial bleed, masses or midline shift. There is no acute infarction in evolution. The lateral ventricles are symmetrical in size and mildly prominent. There is diffuse periventricular hypodensity in both cerebral hemispheres without mass effect. Bone windows reveal right scalp ventral scalp hematoma. There is a left frontoparietal scalp hematoma with surgical carin in place. There is no calvarial fracture. Bilateral paranasal sinuses and mastoid air cells are well-aerated. There is mild mucosal thickening right maxillary sinus. Rest of the paranasal sinuses and mastoid air cells are well-aerated. CERVICAL SPINE: There is normal cervical lordosis. The vertebral heights and alignment is normal. The disc heights is normal. There is moderate ventral spondylosis C4-C5, C5-C6 and C6-C7 disc levels. The craniovertebral junction and the C1-C2 alignment is normal. No visible acute fracture, dislocation or subluxation seen. CT/CT cervical spine wo con IMPRESSION: No acute intracranial process seen. There is right frontal scalp hematoma without calvarial fracture. There is a left frontoparietal scalp laceration/hematoma with surgical carin. No calvarial fracture. Chronic right maxillary sinus inflammatory changes. There is no acute fracture or dislocation in cervical spine. Degenerative ventral spondylosis C4-C5 through C6-C7 disc levels.
[2020-06-19 15:08] VITALS: BP 144/53; PULSE 45; RESP 18; TEMP 36.6; O2SAT 96; BMI 21.2
[2020-06-19 15:37] VITALS: BP 144/53; PULSE 48; RESP 18; TEMP 36.6; O2SAT 96
[2020-06-19] MEDS: oxyCODONE HCl Immed Release 5 MG TABLET PO (15:38)
[2020-06-19] MEDS: Morphine Sulfate ER 30 MG TABLET.ER PO (15:38)
--- NOTE | 2020-06-19 15:55 | ED.HEATRA ---
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 Not on any blood thinners although she sustained a large laceration to her left top of her scalp. Patient and her family member at bedside report that they would like the laceration repaired and they are acceptable to CT scan of brain and cervical spine although they are declining any labs at this time. Patient denies any symptoms prior to the fall reports he was truly mechanical. Patient denies any other symptoms complaints or concerns at this time. MD Complaint: head injury and fall Onset (ago): minute(s) Mechanism of Injury: fall Place: home Loss of Consciousness: no Location of injury: parietal Severity: moderate Quality: aching Radiation: none Other Injuries: none Associated symptoms: denies other symptoms Related Data Home Medications Medication Instructions Recorded Confirmed Combivent Respimat 1 puff INHALATION QID PRN 11/27/19 12/09/19 Incruse Ellipta 1 puff INHALATION DAILY 11/27/19 12/09/19 amlodipine 1 tab PO DAILY 11/27/19 12/09/19 ezetimibe 1 tab PO DAILY 11/27/19 12/09/19 furosemide 1 tab PO DAILY 11/27/19 12/09/19 levothyroxine 1 tab PO DAILY 11/27/19 12/09/19 losartan 1 tab PO DAILY 11/27/19 12/09/19 omeprazole 1 cap PO BID 11/27/19 12/09/19 spironolactone 1 tab PO BID 11/27/19 12/09/19 tramadol 1 tab PO Q8H PRN 11/27/19 12/09/19 aspirin 1 tab PO DAILY 05/26/20 05/26/20 Previous Rx's Medication Instructions Recorded tramadol 50 mg PO Q8H PRN #30 tab 01/14/20 oxycodone 5 mg PO Q8H PRN #60 cap 05/29/20 morphine 30 mg PO Q12H #60 tab 06/02/20 Allergies Allergy/AdvReac Type Severity Reaction Status Date / Time atorvastatin AdvReac Unknown NASAL Verified 11/27/19 12:14 BLEEDING Review of Systems Review of Systems: Constitutional : No Fever, No Chills, Cardiovascular : No Chest Pain, No SOB Respiratory : No Dyspnea Gastrointestinal : No abdominal pain Musculoskeletal : No Joint Swelling Skin : positive skin laceration, No Foreign bodies, No rash, No surrounding erythema Neuro : No Weakness, No Numbness/tingling Psych : No SI/HI/thoughts of self injury Yes all other systems are reviewed and are negative [facility] Past Medical History Attestation statement: The following information was validated with the patient. Medical History Ascites Asthma CAD (coronary artery disease) Cellulitis Cirrhosis of liver with ascites GERD (gastroesophageal reflux disease) High cholesterol Hypertension Hypothyroid Malignant ascites PAD (peripheral artery disease) Parotid gland enlargement Surgical History History of carotid endarterectomy History of quadruple bypass Hx of angioplasty Hx of CABG Family History Family History Father No problems noted. Mother Rheumatoid arthritis CVD (cardiovascular disease) Social History Social History Household Members: Children and Other Household Members Other:: daughter and great granddaughter Housing: Condominium Alcohol intake: never Smoking Status: Never smoker Tobacco Type: Cigarette Packs Per Day: 1 Years Smoked: 55 Second Hand Smoke Exposure: Yes Advance Directives: No Advance Directives Information Provided: Yes service: No Current occupational status: retired Physical Exam Vital Signs: Vital Signs: Last Vital Signs Temp 97.9 F 06/19/20 15:37 Pulse 48 L 06/19/20 15:37 Resp 18 06/19/20 15:37 BP 144/53 H 06/19/20 15:37 Pulse Ox 96 06/19/20 15:37 Body Mass Index 21.2 Vital signs have been reviewed as normal and appeared to be correct. Blood pressure hypertensive at 144/53. Heart rate bradycardic at 45. Respiration rate normal. Temperature normal. Oxygen saturation normal. Appearance: Alert. Oriented X3. No acute distress. Head: To left parietal aspect of scalp patient has intermediate approximately 8 cm laceration no active bleeding or foreign bodies or obvious deformities are noted. Otherwise the rest of the head is Normal. Able to rotate head bilaterally. Eyes: PERRLA. EOMI. No nystagmus noted. Conjunctiva and sclera normal. Eyelids normal. Corneal reflex normal. ENT: Hearing normal. Pharynx normal. Uvula midline. tongue midline. Moist mucous membranes. No trismus noted. No drooling noted. No muffled voice noted. No nystagmus noted. Neck: Normal inspection. Neck supple. FROM. No adenopathy. Trachea midline. Thyroid Normal. No meningeal signs. No neck mass noted. CVS: Normal heart rate and rhythm. Heart sound normal. No murmurs noted. Pulses normal throughout. Respiratory: No respiratory distress. Painless inspiration. Breath sounds normal. No wheezes/rales/rhonchi noted. Chest nontender. No accessory muscle usage noted or decreased air movement noted. Back: Full range of motion noted. Skin: Skin warm and dry. Normal skin color. Normal skin turgor. No rashes/lesions/lacerations noted. Extremities: Extremities exhibit normal range of motion. Extremities nontender. Able to shrug shoulders bilaterally and keep up against resistance. Neuro: Oriented X 3. No motor deficit. No sensory deficit. Reflexes normal. Moving all extremities. No focal motor deficits. Cranial nerves II-XI intact bilaterally. Facial strength normal. Normal cognition. Speech normal. Gait normal. Strength 5/5 throughout. No pronator drift. No tremor noted. No fasciculations noted. No rigidity noted. Muscle tone normal throughout. Course Course Course Narrative: 16:20pm - patient now status post laceration repair with [address] Patient tolerated procedure well. No complications. Patient is still awaiting CT scan of brain and cervical spine. Will re-evaluate. Procedures Laceration Laceration 1: Site: scalp (Twelve carin placed) Side (If applicable): left Size (cm): 8 Description: linear Depth: involves muscle layer Pre-repair: wound explored, irrigated extensively and deep structures intact MDM - Head Injury MDM Narrative Medical decision making narrative: 74-year-old female with a past medical history of B-cell lymphoma stage III/IV with bilateral cervical lymphadenopathy currently on palliative care presenting via EMS after she had a mechanical fall with head injury no loss of consciousness with laceration to the left parietal aspect of her scalp no active bleeding or foreign bodies noted at this time. - patient and family at bedside are agreeable to CT scan of brain/cervical spine and to repair the wound although they are refusing any EKG or labs at this time due to patient is on palliative care. They are also agreeable to 5 mg of oxycodone and 30 mg of her extended release morphine that she normally takes at home. - Plan: CT scan of brain/cervical spine. Provide 5 mg of oxycodone and 30 mg of extended release morphine that patient currently takes at home but did not take today due to the fall repair the laceration and re-evaluate. Critical Care Time Critical Care Time Critical Care Time: Yes Total Critical Care Time: 60 Attestation: I personally attest to this time spent taking care of the patient Discharge Plan Discharge Clinical Impression: Fall, Laceration of scalp Instructions: Staple Care (ED), Head Laceration (ED) Additional Instructions: Continue taking your previously prescribed medications as previously prescribed. Prescriptions: No Action furosemide 40 mg tablet 1 tab PO DAILY RF: 0 amlodipine 2.5 mg tablet 1 tab PO DAILY RF: 0 tramadol 50 mg tablet 1 tab PO Q8H PRN (Reason: severe pain) RF: 0 spironolactone 25 mg tablet 1 tab PO BID RF: 0 levothyroxine 150 mcg tablet 1 tab PO DAILY RF: 0 losartan 25 mg tablet 1 tab PO DAILY RF: 0 omeprazole 20 mg capsule,delayed release(DR/EC) 1 cap PO BID RF: 0 ezetimibe 10 mg tablet 1 tab PO DAILY RF: 0 Incruse Ellipta 62.5 mcg/actuation blister with device 1 puff inhalation DAILY RF: 0 Combivent Respimat 20-100 mcg/actuation mist 1 puff inhalation QID PRN (Reason: Shortness Of Breath) RF: 0 tramadol 50 mg Tablet 50 mg PO Q8H PRN (Reason: Breakthrough Pain, Moderate) Qty: 30 RF: 0 aspirin 81 mg tablet,delayed release (DR/EC) 1 tab PO DAILY RF: 0 morphine 30 mg Tablet Extended Release 30 mg PO Q12H Qty: 60 RF: 0 oxycodone 5 mg Capsule 5 mg PO Q8H PRN (Reason: Pain) Qty: 60 RF: 0 Referrals: Carlene Farley PA [Emergency Midlevel Provider] - 5 days (Return in 5 days for staple removal) Print Language: Algerian
[2020-06-19 18:11] VITALS: BP 141/58; PULSE 45; RESP 18; TEMP 36.4; O2SAT 92
== END 2020-06-19 18:29 | disposition home or self-care (01) ==
PROVIDERS: Emergency Provider Emergency Medicine
DX: S01.01XA Laceration without foreign body of scalp, initial encounter (principal); G44.309 Post-traumatic headache, unspecified, not intractable; C85.10 Unspecified B-cell lymphoma, unspecified site; M54.2 Cervicalgia; W01.10XA Fall on same level from slipping, tripping and stumbling with subsequent striking against unspecified object, initial encounter; Y93.9 Activity, unspecified; Y92.009 Unspecified place in unspecified non-institutional (private) residence as the place of occurrence of the external cause; Y99.9 Unspecified external cause status; Z79.899 Other long term (current) drug therapy
CPT/HCPCS: 12004; 70450; 72125; 99283; 99291

== ENCOUNTER 2020-06-29 10:35 | Inpatient (IN) | payer MEDICARE, OTHER, SELFPAY ==
[2020-06-29] VITALS (27 sets, daily range): BP systolic 73–143; BP diastolic 31–85; PULSE 40–81; RESP 11–20; TEMP 36.3–36.9; O2SAT 89–100; BMI 19.1; BMI 19.3
--- NOTE | ~2020-06-29 | CT_ITS ---
EXAMINATION: CT HEAD WITHOUT CONTRAST CLINICAL INFORMATION: Unresponsive COMPARISON: Previous head CT most recent 06/19/2020 TECHNIQUE: Contiguous axial imaging was performed from the skull base to vertex without intravenous administration of contrast. This CT examination was performed using dose optimization techniques as appropriate, variously including the following: *Automated exposure control *Adjustment of mA and/or kV according to patient size (this includes techniques or standardized protocols for targeted exams where dose is matched to indication/reason for exam; i.e. extremities or head) *Use of iterative reconstruction technique DLP: 2291 mGy-cm FINDINGS: Limited exam due to motion artifact. No acute findings. There is no evidence of an extra-axial collection. There is no evidence of intra-axial or extra-axial hemorrhage. The ventricles and extra-axial CSF spaces are prominent suggestive of mild generalized atrophy. There is nonspecific periventricular white matter disease. No mass, mass effect or infarct is seen. No skull fracture is seen. There are surgical clips over the right frontal and parietal bones near the vertex. There is a small scalp hematoma overlying the right frontal bone. There are inflammatory changes seen in the right maxillary sinus. There are partially visualized bilateral parotid lesions. There is air in the soft tissues of the left side of the face. CT/CT head/brain wo con IMPRESSION: Limited exam due to motion. No acute intracranial findings. Air in the left side of the face. Partially visualized bilateral parotid lesions.
--- NOTE | ~2020-06-29 | CT_ITS ---
EXAMINATION: CT CHEST WITHOUT CONTRAST CLINICAL INFORMATION: Hypoxemia COMPARISON: Previous chest CT most recent March 2019 and chest x-ray most recent from yesterday TECHNIQUE: Multidetector volumetric CT imaging of the chest was done. Axial MIP volume rendering provided. Sagittal and coronal reformatted images were obtained. This CT examination was performed using dose optimization techniques as appropriate, variously including the following: *Automated exposure control *Adjustment of mA and/or kV according to patient size (this includes techniques or standardized protocols for targeted exams where dose is matched to indication/reason for exam; i.e. extremities or head) *Use of iterative reconstruction technique DLP: 105 mGy-cm FINDINGS: LUNGS: There is a 0.7 x 0.5 cm irregularly-shaped right upper lobe nodule axial image 110 series 5 that is stable. There is a scattered bronchial wall thickening and increased peribronchial attenuation suggestive of airways disease. No evidence of a pneumonia is seen. There is a minimal scarring or chronic subsegmental atelectasis in the left lower lobe adjacent to the small left pleural effusion that is unchanged. MEDIASTINUM: There is an enlarged subcarinal mediastinal lymph node measuring 1.4 x 3 cm in AP and transverse dimension. This is similar to previous PET/CT scan December 2019. There are smaller normal size mediastinal lymph nodes that are stable. There are post-CABG changes. The heart does not appear enlarged. There is no pericardial effusion. The thoracic aorta is normal in caliber. PLEURA: There is a trace left pleural effusion and pleural thickening that is similar to previous PET/CT scan. There is no right pleural effusion. AXILLA: There is an enlarged right axillary lymph node that measures 0.8 x 1.5 cm axial image 13 series 3. This appears increased in size from previous PET/CT scan. UPPER ABDOMEN: There are enlarged retroperitoneal lymph nodes in the upper abdomen. There is a small to moderate amount of ascites. There is a peritoneal catheter seen on the right inferior to the liver. There may be mild left hydronephrosis. OSSEOUS STRUCTURES: There are degenerative changes of the spine. CT/CT chest wo con IMPRESSION: Mild bronchial wall thickening and increased peribronchial attenuation suggestive of airways disease. No evidence of pneumonia. Stable subcentimeter right upper lobe nodule from previous PET/CT scan December 2019. Stable enlarged subcarinal mediastinal lymph node. New enlarged right axillary lymph node. Post-CABG changes.
--- NOTE | ~2020-06-29 | XR_ITS ---
EXAMINATION: XR CHEST CLINICAL INFORMATION: Unresponsive COMPARISON: Previous chest x-ray most recent December [address] March 2019 TECHNIQUE: Frontal view of the chest was obtained. FINDINGS: The cardiac and mediastinal contours are stable. There are post-CABG changes. The lungs are clear. There is no pleural effusion or pneumothorax. There are degenerative changes of the spine. XR/XR chest 1V IMPRESSION: Unremarkable examination.
--- NOTE | ~2020-06-29 | XR_ITS ---
EXAMINATION: XR CHEST CLINICAL INFORMATION: Hypoxemia. Right basilar crackles. COMPARISON: Chest 06/29/2020 TECHNIQUE: Frontal view of the chest was obtained. FINDINGS: The lungs are well-expanded without acute pneumonic consolidation or pleural effusion. There is increased vascular markings both lungs with a soft tissue density in the left suprahilar region measuring approximate 1.8 cm question nodule or focal infiltrate. Heart size is borderline normal. There is evidence of previous CABG with median sternotomy sutures and moderate spondylosis dorsal spine. XR/XR chest 1V IMPRESSION: Suspect 1.8 cm nodule or an artifact left upper lobe. Bilateral increase markings question chronic changes versus interstitial pneumonitis. Correlate with CT chest
--- NOTE | 2020-06-29 10:41 | ECG_ITS ---
Test Reason : AMS Blood Pressure : / mmHG Vent. Rate : 084 BPM Atrial Rate : 084 BPM P-R Int : 172 ms QRS Dur : 110 ms QT Int : 416 ms P-R-T Axes : 099 011 113 degrees QTc Int : 491 ms Normal sinus rhythm Incomplete left bundle branch block ST & T wave abnormality, consider lateral ischemia Prolonged QT Abnormal ECG When compared with ECG of 19-DEC-2018 11:36, T wave inversion more evident in Lateral leads Referred By: Mary Beth Lemus Electronically Signed By:JOAQUIN CHRISTIANSEN MD
--- NOTE | 2020-06-29 10:43 | ED.AMS ---
HPI - Altered Mental Status General Chief Complaint: Altered Mental Status Stated Complaint: UNRESPONSIVE,END STAGE CA PER EMS Time Seen by Provider: 06/29/20 10:40 Source: patient and family (Granddaughter) Mode of arrival: EMS Limitations: no limitations History of Present Illness HPI narrative: 74 years old female came in by EMS for evaluation of being unresponsive since this morning. This is a 74-year-old female with B-cell lymphoma, hypertension, COPD, liver cirrhosis, coronary artery disease, CHF. Patient presented with her grand daughter who also a healthcare proxy who provided the history for the patient, reportedly patient last night was awake with little bit of confusion went to bed when she woke up this morning patient was unresponsive granddaughter call 911 on arrival patient was unresponsive sugar was 119 patient was maintaining breathing and airway, patient initially was bradycardic and hypotensive 80/40. On arrival to the emergency department I see cachectic 74 years old female who is not responding to verbal no lower painful stimuli, patient was placed on oxygen obtaining history from granddaughter patient is taking oxycodone and morphine, patient was given 2 mg of Narcan IV, then patient shortly is started to respond and heart rate went up to the 60s and systolic blood pressure maintained above 100. Related Data Home Medications Medication Instructions Recorded Confirmed Combivent Respimat 1 puff INHALATION QID PRN 11/27/19 06/29/20 Incruse Ellipta 1 puff INHALATION DAILY 11/27/19 06/29/20 amlodipine 1 tab PO DAILY 11/27/19 06/29/20 levothyroxine 1 tab PO DAILY 11/27/19 06/29/20 losartan 1 tab PO DAILY 11/27/19 06/29/20 carvedilol 1 tab PO BID 06/29/20 06/29/20 Previous Rx's Medication Instructions Recorded morphine 30 mg PO Q12H #60 tab 06/02/20 oxycodone 5 mg PO Q8H PRN #60 cap 06/26/20 Allergies Allergy/AdvReac Type Severity Reaction Status Date / Time atorvastatin AdvReac Unknown NASAL Verified 11/27/19 12:14 BLEEDING Review of Systems Review of Systems: All other systems are reviewed and are negative Constitutional: Reports as per HPI and Reports no additional constitutional complaints Eyes: Reports as per HPI and Reports no additional eye complaints Reports system reviewed and no additional complaints, except as documented Cardiovascular: Reports as per HPI and Reports no additional cardiovascular complaints Respiratory: Reports as per HPI and Reports no additional respiratory complaints Gastrointestinal: Reports as per HPI and Reports no additional gastrointestinal complaints Genitourinary: Reports no additional female genitourinary complaints Musculoskeletal: Reports no additional musculoskeletal complaints Skin/Breast: Reports system reviewed and no additional complaints, except as docu Psychiatric: Reports no additional psychiatric complaints Endocrine: Reports no additional endocrine complaints Hematologic/Lymphatic: Reports no additional hematologic/lymphatic complaints Allergic/Immunologic: Reports no additional allergic/immunologic complaints Reports system reviewed and no additional complaints, except as documented and Reports Abnormal speech present [facility] Past Medical History Medical History Ascites Asthma CAD (coronary artery disease) Cellulitis Cirrhosis of liver with ascites GERD (gastroesophageal reflux disease) High cholesterol Hypertension Hypothyroid Malignant ascites PAD (peripheral artery disease) Parotid gland enlargement Surgical History History of carotid endarterectomy History of quadruple bypass Hx of angioplasty Hx of CABG Family History Family History Father No problems noted. Mother Rheumatoid arthritis CVD (cardiovascular disease) Social History Social History Household Members: Children and Other Household Members Other:: daughter and great granddaughter Housing: Condominium Alcohol intake: never Smoking Status: Never smoker Tobacco Type: Cigarette Packs Per Day: 1 Years Smoked: 55 Second Hand Smoke Exposure: Yes Use of substances other than those prescribed or required for medical reasons: No Advance Directives: No Advance Directives Information Provided: No service: No Current occupational status: retired Physical Exam Vital Signs: Vital Signs: Last Vital Signs Temp 98.0 F 06/29/20 14:03 Pulse 59 06/29/20 15:19 Resp 14 06/29/20 15:13 BP 81/40 L 06/29/20 15:19 Pulse Ox 100 06/29/20 15:13 Body Mass Index 19.3 Vital signs have been reviewed as appeared to be correct. Blood pressure normal. Heart rate normal. Respiration rate normal. Temperature normal. Oxygen saturation normal. Appearance: Cachectic, unresponsive Head: Normal external exam. Normocephalic. Atraumatic. No Ramachandran signs noted. No raccoon eyes noted Eyes: Pinpoint pupils, sclera normal. Eyelids normal. ENT: TM's Normal. Pharynx normal. Uvula midline. Moist mucous membranes. No trismus noted. No drooling noted. No muffled voice noted. Neck: Normal inspection. Neck supple. FROM. No adenopathy. Thyroid Normal. No meningeal signs. No neck mass noted. CVS: Normal heart rate and rhythm. Heart sound normal. No murmurs noted. Pulses normal throughout. Respiratory: No respiratory distress. Painless inspiration. Breath sounds normal. No wheezes/rales/rhonchi noted. Chest nontender. No accessory muscle usage noted or decreased air movement noted. Abdomen: Soft and nontender. Bowel sounds normal in all 4 quadrants. No distention noted. No organomegaly noted. No visible injury noted. Back: No CVA tenderness. Full range of motion noted. Skin: Skin warm and dry. Normal skin color. Normal skin turgor. No rashes/lesions/lacerations noted. Extremities: No lower extremity edema. Extremities exhibit normal range of motion. Extremities nontender. Neuro: Limited due to unresponsiveness. Course Course Course Narrative: Assessment and plan. 74-year-old female with history of lymphoma patient also is taking narcotic medication for chronic pain control, came in unresponsive, hypotensive, bradycardic, patient responded well to Narcan, while patient in the emergency department blood pressure was fluctuating between 70s to mid 90s systolic with bradycardia heart rate of the 40's. 0.5 mg of atropine was administered which improved the heart rate but not the blood pressure. Start patient on dopamine as pressor to support the hypotension. Hypotension is not secondary to infection. Case discussed with Dr. amaro will admit the patient to ICU. MDM - Altered Mental Status Lab Data Attestation: I reviewed the patient's lab results. Result diagrams: 06/29/20 12:00 06/29/20 12:00 Labs: Lab Results 06/29/20 06/29/20 06/29/20 Range/Units 10:46 12:00 12:00 WBC 12.3 H (4.8-10.8) X10*3/uL RBC 4.31 (4.20-5.50) X10*6/uL Hgb 11.9 L (12.0-16.0) g/dl Hct 37.7 (37-47) % MCV 87.5 (80-98) fL MCH 27.6 (27.0-33.0) pg MCHC 31.6 (31.0-35.0) g/dl RDW 18.6 H (11.0-16.0) % Plt Count 104 L (160-400) X10*3/uL MPV 10.1 (9.4-12.3) fL Immature Gran % (Auto) 0.4 (0.0-0.4) % Neut % (Auto) 69.2 (45-73) % Lymph % (Auto) 23.0 (20-40) % [place] % (Auto) 6.1 (2-11) % Eos % (Auto) 0.7 (0-4) % Baso % (Auto) 0.6 (0-2) % Lymph # (Auto) 2.8 (1.2-4.9) X10*3/uL [place] # (Auto) 0.8 (0.1-1.2) X10*3/uL Eos # (Auto) 0.1 (0.0-0.4) X10*3/uL Baso # (Auto) 0.1 (0.0-0.2) X10*3/uL Abs Immat Gran (auto) 0.05 H (0.00-0.03) X10*3/uL Absolute Neuts (auto) 8.5 H (2.0-8.3) X10*3/uL Absolute Nucleated RBC 0.000 (0.0-0.012) X10*3/uL Nucleated RBC % (auto) 0.0 (0.0-0.2) /100WBC Sodium 139 (135-145) mmol/L Potassium 3.5 (3.3-5.1) mmol/L Chloride 100 (96-108) mmol/L Carbon Dioxide 27 (22-29) mmol/L Anion Gap 16 (12-20) BUN 32 H D (9-16) mg/dL Creatinine 3.82 H (0.5-1.4) mg/dL Estim Creat Clear Calc 10.2 Estimated GFR 12 POC Glucose 86 (60-115) mg/dL Random Glucose 101 (60-115) mg/dL Lactic Acid (0.5-2.0) mmol/L Calcium 8.2 L D (8.4-10.2) mg/dL Total Bilirubin (0.0-1.0) mg/dL Direct Bilirubin (0.0-0.5) mg/dL AST (5-31) U/L ALT (0-31) U/L Alkaline Phosphatase (39-117) U/L Ammonia (13-55) umol/L Troponin I High Sens (<3.5-17.0) ng/L B-Natriuretic Peptide (<100) pg/mL Total Protein (6.5-8.0) g/dL Albumin (3.5-5.0) g/dL Lipase 106 H (8-78) U/L Urine Color Urine Appearance Urine pH (5.0-8.0) Ur Specific [place] (1.005-1.025) Urine Protein (NEG-TRACE) MG/DL Urine Glucose (UA) (NEG) MG/DL Urine Ketones (NEG) MG/DL Urine Blood (NEG) Urine Nitrite (NEG) Ur Leukocyte Esterase (NEG) COVID-19 ([place]) (Negative) COVID-19 Clin Com 06/29/20 06/29/20 06/29/20 Range/Units 12:00 12:00 12:00 WBC (4.8-10.8) X10*3/uL RBC (4.20-5.50) X10*6/uL Hgb (12.0-16.0) g/dl Hct (37-47) % MCV (80-98) fL MCH (27.0-33.0) pg MCHC (31.0-35.0) g/dl RDW (11.0-16.0) % Plt Count (160-400) X10*3/uL MPV (9.4-12.3) fL Immature Gran % (Auto) (0.0-0.4) % Neut % (Auto) (45-73) % Lymph % (Auto) (20-40) % [place] % (Auto) (2-11) % Eos % (Auto) (0-4) % Baso % (Auto) (0-2) % Lymph # (Auto) (1.2-4.9) X10*3/uL [place] # (Auto) (0.1-1.2) X10*3/uL Eos # (Auto) (0.0-0.4) X10*3/uL Baso # (Auto) (0.0-0.2) X10*3/uL Abs Immat Gran (auto) (0.00-0.03) X10*3/uL Absolute Neuts (auto) (2.0-8.3) X10*3/uL Absolute Nucleated RBC (0.0-0.012) X10*3/uL Nucleated RBC % (auto) (0.0-0.2) /100WBC Sodium (135-145) mmol/L Potassium (3.3-5.1) mmol/L Chloride (96-108) mmol/L Carbon Dioxide (22-29) mmol/L Anion Gap (12-20) BUN (9-16) mg/dL Creatinine (0.5-1.4) mg/dL Estim Creat Clear Calc Estimated GFR POC Glucose (60-115) mg/dL Random Glucose (60-115) mg/dL Lactic Acid 1.3 (0.5-2.0) mmol/L Calcium (8.4-10.2) mg/dL Total Bilirubin 0.7 (0.0-1.0) mg/dL Direct Bilirubin 0.3 (0.0-0.5) mg/dL AST 18 (5-31) U/L ALT 7 (0-31) U/L Alkaline Phosphatase 71 (39-117) U/L Ammonia 52 (13-55) umol/L Troponin I High Sens (<3.5-17.0) ng/L B-Natriuretic Peptide (<100) pg/mL Total Protein 6.3 L (6.5-8.0) g/dL Albumin 3.3 L (3.5-5.0) g/dL Lipase (8-78) U/L Urine Color Urine Appearance Urine pH (5.0-8.0) Ur Specific [place] (1.005-1.025) Urine Protein (NEG-TRACE) MG/DL Urine Glucose (UA) (NEG) MG/DL Urine Ketones (NEG) MG/DL Urine Blood (NEG) Urine Nitrite (NEG) Ur Leukocyte Esterase (NEG) COVID-19 ([place]) (Negative) COVID-19 Clin Com 06/29/20 06/29/20 06/29/20 Range/Units 12:00 12:00 13:38 WBC (4.8-10.8) X10*3/uL RBC (4.20-5.50) X10*6/uL Hgb (12.0-16.0) g/dl Hct (37-47) % MCV (80-98) fL MCH (27.0-33.0) pg MCHC (31.0-35.0) g/dl RDW (11.0-16.0) % Plt Count (160-400) X10*3/uL MPV (9.4-12.3) fL Immature Gran % (Auto) (0.0-0.4) % Neut % (Auto) (45-73) % Lymph % (Auto) (20-40) % [place] % (Auto) (2-11) % Eos % (Auto) (0-4) % Baso % (Auto) (0-2) % Lymph # (Auto) (1.2-4.9) X10*3/uL [place] # (Auto) (0.1-1.2) X10*3/uL Eos # (Auto) (0.0-0.4) X10*3/uL Baso # (Auto) (0.0-0.2) X10*3/uL Abs Immat Gran (auto) (0.00-0.03) X10*3/uL Absolute Neuts (auto) (2.0-8.3) X10*3/uL Absolute Nucleated RBC (0.0-0.012) X10*3/uL Nucleated RBC % (auto) (0.0-0.2) /100WBC Sodium (135-145) mmol/L Potassium (3.3-5.1) mmol/L Chloride (96-108) mmol/L Carbon Dioxide (22-29) mmol/L Anion Gap (12-20) BUN (9-16) mg/dL Creatinine (0.5-1.4) mg/dL Estim Creat Clear Calc Estimated GFR POC Glucose (60-115) mg/dL Random Glucose (60-115) mg/dL Lactic Acid (0.5-2.0) mmol/L Calcium (8.4-10.2) mg/dL Total Bilirubin (0.0-1.0) mg/dL Direct Bilirubin (0.0-0.5) mg/dL AST (5-31) U/L ALT (0-31) U/L Alkaline Phosphatase (39-117) U/L Ammonia (13-55) umol/L Troponin I High Sens 22.7 H* (<3.5-17.0) ng/L B-Natriuretic Peptide 175 H (<100) pg/mL Total Protein (6.5-8.0) g/dL Albumin (3.5-5.0) g/dL Lipase (8-78) U/L Urine Color YELLOW Urine Appearance CLOUDY Urine pH 5.5 (5.0-8.0) Ur Specific [place] 1.025 (1.005-1.025) Urine Protein NEG (NEG-TRACE) MG/DL Urine Glucose (UA) NEG (NEG) MG/DL Urine Ketones NEG (NEG) MG/DL Urine Blood NEG (NEG) Urine Nitrite NEG (NEG) Ur Leukocyte Esterase NEG (NEG) COVID-19 ([place]) Negative (Negative) COVID-19 Clin Com See Note Imaging Data CT scan - head: Radiologist's impression: Limited exam due to motion artifact. No acute findings. There is no evidence of an extra-axial collection. There is no evidence of intra-axial or extra-axial hemorrhage. The ventricles and extra-axial CSF spaces are prominent suggestive of mild generalized atrophy. There is nonspecific periventricular white matter disease. No mass, mass effect or infarct is seen. No skull fracture is seen. There are surgical clips over the right frontal and parietal bones near the vertex. There is a small scalp hematoma overlying the right frontal bone. There are inflammatory changes seen in the right maxillary sinus. There are partially visualized bilateral parotid lesions. There is air in the soft tissues of the left side of the face. Chest x-ray: Radiologist's impression: Unremarkable examination. ECG Data ECG #1: Interpretation: Normal sinus rhythm at 84 beats per minute, mild prolongation of QRS otherwise unremarkable intervals, no ST-T changes. Critical Care Time Critical Care Time Critical Care Time: Yes Total Critical Care Time: 60 Attestation: I spent 60 minutes providing critical care service to the patient, this including time spent at the bedside to evaluate the patient, reassess the patient, monitoring vital signs, review labs, and radiographic studies, counseling the patient/family, discussing the case with consultants, disposition the patient. Discharge Plan Discharge Clinical Impression: Acute alteration in mental status, Opiate or related narcotic overdose, Acute hypotension, Bradycardia Patient Disposition: Admitted As Inpatient Prescriptions: No Action carvedilol 12.5 mg tablet 1 tab PO BID RF: 0 amlodipine 2.5 mg tablet 1 tab PO DAILY RF: 0 levothyroxine 150 mcg tablet 1 tab PO DAILY RF: 0 losartan 25 mg tablet 1 tab PO DAILY RF: 0 Incruse Ellipta 62.5 mcg/actuation blister with device 1 puff inhalation DAILY RF: 0 Combivent Respimat 20-100 mcg/actuation mist 1 puff inhalation QID PRN (Reason: Shortness Of Breath) RF: 0 morphine 30 mg Tablet Extended Release 30 mg PO Q12H Qty: 60 RF: 0 oxycodone 5 mg Capsule 5 mg PO Q8H PRN (Reason: Pain) Qty: 60 RF: 0
--- NOTE | 2020-06-29 10:50 | PC.NURSE ---
pt responded well to narcan 2mg iv, pt is awake and responding to verbal stimuli.
[2020-06-29] MEDS: 0.9 % Sodium Chloride 250 ML 999 ML IV (11:00)
--- NOTE | 2020-06-29 11:00 | PC.NURSE ---
lungs - coarse crackles noted all lobes.
[2020-06-29] MEDS: Naloxone HCl 2 MG/2 ML SYRINGE IVPUSH (11:10)
--- NOTE | 2020-06-29 11:15 | PC.NURSE ---
pt has 12 carni to left top of head which are c/d/i.
--- NOTE | 2020-06-29 11:17 | PC.NURSE ---
per pt's grand daughter who stated that she spoke to her mother who lives and takes care of pt. pt's daughter states that she gave her all her meds this am except for her pain meds. aware.
[2020-06-29 11:24] LABS: Glucose, Whole Blood 86 mg/dL (60-115)
[2020-06-29 12:08] LABS: MANUAL DIFF FLAG NO
[2020-06-29 12:09] LABS: Basophils Absolute Auto 0.1 X10*3/uL (0.0-0.2); Basophils Percent Auto 0.6 % (0-2); Eosinophils Absolute Auto 0.1 X10*3/uL (0.0-0.4); Eosinophils Percent Auto 0.7 % (0-4); Hematocrit 37.7 % (37-47); Hemoglobin 11.9 g/dl (12.0-16.0); Imm Gran Abs Auto 0.05 X10*3/uL (0.00-0.03); Imm Gran Pct Auto 0.4 % (0.0-0.4); Lymphocytes Absolute Auto 2.8 X10*3/uL (1.2-4.9); Mean Corpuscular HGB Conc 31.6 g/dl (31.0-35.0); Mean Corpuscular Hemoglobin 27.6 pg (27.0-33.0); Mean Corpuscular Volume 87.5 fL (80-98); Mean Platelet Volume 10.1 fL (9.4-12.3); Monocytes Absolute Auto 0.8 X10*3/uL (0.1-1.2); Monocytes Percent Auto 6.1 % (2-11); Neutrophils Absolute Auto 8.5 X10*3/uL (2.0-8.3); Neutrophils Percent Auto 69.2 % (45-73); Platelet Count 104 X10*3/uL (160-400); Red Blood Count 4.31 X10*6/uL (4.20-5.50); Red Cell Distribution Width 18.6 % (11.0-16.0); White Blood Count 12.3 X10*3/uL (4.8-10.8)
[2020-06-29 12:27] LABS: COVID-19 Test Negative (Negative)
[2020-06-29 12:30] LABS: Ammonia 52 umol/L (13-55)
[2020-06-29 12:33] LABS: Lactic Acid 1.3 mmol/L (0.5-2.0)
[2020-06-29 12:38] LABS: Alanine Aminotransferase 7 U/L (0-31); Albumin Level 3.3 g/dL (3.5-5.0); Alkaline Phosphatase 71 U/L (39-117); Aspartate Amino Transferase 18 U/L (5-31); Bilirubin Direct 0.3 mg/dL (0.0-0.5); Bilirubin Total 0.7 mg/dL (0.0-1.0); Total Protein 6.3 g/dL (6.5-8.0)
[2020-06-29 12:51] LABS: Anion Gap 16 (12-20); Blood Urea Nitrogen 32 mg/dL (9-16); Calcium 8.2 mg/dL (8.4-10.2); Carbon Dioxide 27 mmol/L (22-29); Chloride 100 mmol/L (96-108); Creatinine Clr Calc Pharmacy 10.2; Estimated Glomerular Filt Rate 12; Glucose Random 101 mg/dL (60-115); Lipase 106 U/L (8-78); Potassium 3.5 mmol/L (3.3-5.1); Sodium 139 mmol/L (135-145)
[2020-06-29 13:01] LABS: B Type Natriuretic Peptide 175 pg/mL (<100); Troponin-I High Sensitivity 22.7 ng/L (<3.5-17.0)
--- NOTE | 2020-06-29 13:44 | PC.NURSE ---
PT IS MORE A/O X 3. NS 500ML BOLUS INFUSING. PT IS TALKING MORE PT'S GRANDDUAGHTER (DEBBIE) AND GREAT GRAND SON AT BEDSIDE.
[2020-06-29] MEDS: 0.9 % Sodium Chloride 1,000 ML 999 ML IVCONT (13:46)
[2020-06-29 13:59] LABS: Glucose Urine UA NEG (NEG); Leukocyte Esterase Urine NEG (NEG); Nitrite Urine NEG (NEG); PH 5.5 (5.0-8.0); Specific Gravity - Urine 1.025 (1.005-1.025); Urine Blood NEG (NEG); Urine Ketones NEG (NEG); Urine Protein NEG (NEG-TRACE)
[2020-06-29 14:00] LABS: Appearance Urine CLOUDY; Color Urine YELLOW
[2020-06-29] MEDS: Atropine Sulfate 1 MG/10 ML SYRINGE 0.5 MG IVPUSH (14:43)
--- NOTE | 2020-06-29 15:05 | PC.NURSE ---
PER PT'S DAUGHTER, PT TOOK OXYCODONE AT 2000 AND MORPHINE 2200 LAST NIGHT. PT WAS GIVEN OXYCODONE THIS AM PER PT'S DAUGHTER PER PHONE CONVERSATION WITH DEBBIE GRAND DAUGHTER
[2020-06-29] MEDS: DOPamine HCL/D5W 400 MG/250 ML PLAST..BAG 9.3 MG IVCONT (15:19)
--- NOTE | 2020-06-29 15:44 | PC.NURSE ---
DOPAMINE GTT MAINTAINED AT 10MCG/KG/MIN, CURRENTLY NORMOTENSIVE, HR IN 70S. TEMP SENSING SUÁREZ PLACED.
--- NOTE | 2020-06-29 16:03 | PC.NURSE ---
PT MIDLY OBTUNDED, WOKEN EASILY WITH VERBAL STIMULI. ORIENTED TO PERSON [address] DOPAMINE GTT RUNNING 5MCG/KG/MIN CURRENTLY. MAINTAINING BPS WNL.
[2020-06-29 16:26] LABS: Troponin-I High Sensitivity 42.6 ng/L (<3.5-17.0)
--- NOTE | 2020-06-29 16:39 | PC.NURSE ---
PT RETURNED TO BEING HYPOTENSIVE AFTER DOWNWARD TITRATION OF DOPAMINE GTT. MD AWARE, RECEIVED ORDERS TO INCREASE BACK UP TO 10MCG/KG/MIN
--- NOTE | 2020-06-29 18:33 | PM.CCN ---
Critical Care Event Note Summary Date of Service: 06/29/20 Code activated: No Narrative: Call by Dr. Lemus about Mrs. Sharif because of bradycardia and hypotension. 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 The patient takes oxycodone and morphine for chronic pain control. The patient is cared for by her granddaughter. According to an oncology note on 03/11/[address] Ferreira, the patient was found to have liver cirrhosis, abdominal adenopathy and ascites in August 2018. CT abdomen at [facility] demonstrated ascites, bulky peripancreatic and retroperitoneal lymphadenopathy, liver cirrhosis with evidence of portal hypertension, mild splenomegaly and perisplenic and perihepatic gastric varices. Paracentesis performed 08/22/2018 was negative for carcinoma, but showed atypical CD20 positive B cells which lacked surface light chain expression; was also negative for CD5 and CD10. Was suggestive of B-cell lymphoproliferative disorder. Lymph node biopsy from left abdomen performed 11/01/2018 detected clonal CD20 positive B-cell population that expresses CD23 and dim surface lambda light chain, negative for CD5 and CD10. Differential diagnosis was marginal zone lymphoma and lymphoplasmacytic lymphoma. PET scan performed 11/15/2018 showed intensely FDG avid retroperitoneal, periportal and peripancreatic lymphadenopathy, FDG avid abdominal soft tissue masses intimately associated with loops of bowel, FDG avid lymphadenopathy in the mediastinum and cervical lymph nodes, as well as bilateral parotid lesions which were intensely FDG avid. Single FDG avid osseous lesion in the right iliac bone showed no corresponding CT findings. 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 She was given rituximab weekly x4. Unfortunately she developed a severe reaction to rituximab PET scan 12/31/2019 showed progression of the lymphoma with increase in FDG avidity and size of extensive lymphadenopathy in neck, chest and abdomen. In Dr. Ferreira?s note of Mar 11, she says that the patient had decided to not receive any further treatment and wanted palliative/hospice care. Her cardiac health was also poor. Since then she?s had multiple therapeutic paracenteses. She had a tunneled paracentesis catheter placed by IR last month. According to Dr. Ferreira?s note of 05/27, the patient is now receiving hospice care. HISTORY OF PRESENT ILLNESS: History is from the granddaughter who told us that last night the patient was a little confused. This morning she found the patient unresponsive. Called 911. On arrival at the scene, the patient was unresponsive. Gluc was 119, patient was maintaining breathing and airway, patient initially was bradycardic and hypotensive 80/40. On arrival to the emergency department, the patient was a cachectic 74 year old female not responding to verbal or painful stimuli. SpO2 was reportedly 98% on room air. HR 81, BP 102/43. The patient was given 2 mg of Narcan IV, then patient became responsive. But her HR dropped into 40?s, BP into 70?s. Dr. Lemus called me, I rec atropine 1mg then dopamine if nec. After atropine 1mg, HR went up the 60?s, but BP still 70?s-80?s. Dopamine was started, HR came up to 70?s, BP to the 130s. Labs in the ED were notable for white count of 12.3 (normally ranges 6-9), hemoglobin of 11.9, platelet count of [id number]. BUN and creatinine 32/3.8, potassium 3.5, bicarb 27, glucose 101, normal LFTs, ammonia 52, albumin 3.3, Lactic acid 1.3. The patient was admitted to ICU for further mx.
--- NOTE | 2020-06-29 18:47 | PC.NURSE ---
RN TO RN REPORT GIVEN TO ICU.
--- NOTE | 2020-06-29 19:19 | PM.CCHP ---
History of Present Illness Date of Service: 06/29/[address] Lemus about Mrs. Sharif because of bradycardia and hypotension. 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 The patient takes oxycodone and morphine for chronic pain control. The patient lives in an apartment and her daughter lives with her and takes care of her. The granddaughter (the daughter?s daughter) is the HCP and manages the patient?s medications. According to an oncology note on 03/11/[address] Ferreira, the patient was found to have liver cirrhosis, abdominal adenopathy and ascites in August 2018. CT abdomen at [facility] demonstrated ascites, bulky peripancreatic and retroperitoneal lymphadenopathy, liver cirrhosis with evidence of portal hypertension, mild splenomegaly and perisplenic and perihepatic gastric varices. Paracentesis performed 08/22/2018 was negative for carcinoma, but showed atypical CD20 positive B cells which lacked surface light chain expression; was also negative for CD5 and CD10. Was suggestive of B-cell lymphoproliferative disorder. Lymph node biopsy from left abdomen performed 11/01/2018 detected clonal CD20 positive B-cell population that expresses CD23 and dim surface lambda light chain, negative for CD5 and CD10. Differential diagnosis was marginal zone lymphoma and lymphoplasmacytic lymphoma. PET scan performed 11/15/2018 showed intensely FDG avid retroperitoneal, periportal and peripancreatic lymphadenopathy, FDG avid abdominal soft tissue masses intimately associated with loops of bowel, FDG avid lymphadenopathy in the mediastinum and cervical lymph nodes, as well as bilateral parotid lesions which were intensely FDG avid. Single FDG avid osseous lesion in the right iliac bone showed no corresponding CT findings. 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 She was given rituximab weekly x4. Unfortunately she developed a severe reaction to rituximab PET scan 12/31/2019 showed progression of the lymphoma with increase in FDG avidity and size of extensive lymphadenopathy in neck, chest and abdomen. In Dr. Ferreira?s note of Mar 11, she says that the patient had decided to not receive any further treatment and wanted palliative/hospice care. Her cardiac health was also poor. Since then she?s had multiple therapeutic paracenteses. She had a tunneled paracentesis catheter placed by IR last month. According to the Granddaughter, the patient declined hospice care and is now receiving palliative care. HISTORY OF PRESENT ILLNESS: History is from the granddaughter who told me that last night the patient was a very confused, made no sense at all on the telephone. This morning after the patient was given her medications, including an oxycodone, she became unresponsive. Called 911. On arrival at the scene, the patient was unresponsive. Gluc was 119, patient was maintaining breathing and airway, patient initially was bradycardic and hypotensive 80/40. On arrival to the emergency department, the patient was a cachectic 74 year old female not responding to verbal or painful stimuli. SpO2 was reportedly 98% on room air. HR 81, BP 102/43. The patient was given 2 mg of Narcan IV, then patient became responsive. But her HR dropped into 40?s, BP into 70?s. Dr. Lemus called me, I rec atropine 1mg then dopamine if nec. After atropine 1mg, HR went up the 60?s, but BP still 70?s-80?s. Dopamine was started, HR came up to 70?s, BP to the 130s. Labs in the ED were notable for white count of 12.3 (normally ranges 6-9), hemoglobin of 11.9, platelet count of [id number]. BUN and creatinine 32/3.8, potassium 3.5, bicarb 27, glucose 101, normal LFTs, ammonia 52, albumin 3.3, Lactic acid 1.3. Screening u/a negative. Brain CT was unremarkable. The CT was read as showing air in the soft tissues of the left side of the face. I reviewed the CT with one of the radiologist from [facility] and he assured me that the air was in the parotid duct, which is of no consequence. On my brief exam, the patient is awake, with a very flat affect. BP is about 110 systolic on Dopamine 10ug. HR 70?s. Breathing easy with NC oxygen, Sat 97%. No JVD. Abdomen is flat and benign. No edema. IMPRESSION: 1. End stage malignant lymphoma. Need to find out about her code status preferences. 2. Unresponsiveness. Seemingly 2? unintentional opiate OD. 3. Symptomatic bradycardia. Unclear etiology. The patient is on b-blockers. Try glucagon. Check TFTs. For now, Rx with dopamine. Echo when she gets to ICU. 4. Hypotension. Needs an echo to check volume status. She's on Ca-ch sara. ? Rx Calcium. 5. HONG. ? hypovolemia. 6. ID. Clinically, she's not septic (normal breathing, not febrile, normal lactate), but her WBC is up, and she's hypotensive. Blood cx have been drawn. We'll sample her peritoneal fluid. Consider empiric ceftriaxone pending cultures. Critical care time (including extended chart review, ED visit, d/w granddaughter, EMR and CPOE): 90+ min [facility] Past Medical History Medical History Ascites Asthma CAD (coronary artery disease) Cellulitis Cirrhosis of liver with ascites GERD (gastroesophageal reflux disease) High cholesterol Hypertension Hypothyroid Malignant ascites PAD (peripheral artery disease) Parotid gland enlargement Family History Family History Father No problems noted. Mother Rheumatoid arthritis CVD (cardiovascular disease) Surgical History Surgical History History of carotid endarterectomy History of quadruple bypass Hx of angioplasty Hx of CABG Social History Social History Household Members: Family Household Members Other:: daughter and great granddaughter Housing: Apartment Do you presently have visiting nurse or other home services: No Unable to assess alcohol history related to: Unknown Alcohol intake: never Smoking Status: Current every day smoker Tobacco Type: Cigarette Packs Per Day: 1 Years Smoked: 55 Smoked in Last 30 Days: Yes Patient Given Instructions on How to Stop Smoking: Yes Date Education Initiated: 06/29/20 Second Hand Smoke Exposure: No Use of substances other than those prescribed or required for medical reasons: No Currently Displaying Signs/Symptoms of Drug Intoxication Withdrawal: No Have you been hit, kicked, punched, or otherwise hurt by someone within the past year? If so, by whom?: No Do you feel safe in your current relationship?: No Current Relationship Is there a partner from a previous relationship who is making you feel unsafe now?: No Are you made to feel afraid or neglected: No Advance Directives: No Advance Directives Information Provided: No Do you have thoughts of harming others: None Do you have a plan to hurt others: No Plan service: No Current occupational status: retired Meds Allergies Allergy/AdvReac Type Severity Reaction Status Date / Time atorvastatin AdvReac Unknown NASAL Verified 11/27/19 12:14 BLEEDING Active Medications: Current Medications Generic Name Dose Route Start Last Admin Trade Name Freq PRN Reason Stop Dose Admin Dopamine HCl/Dextrose 400 mg in 250 mls @ 0 mls/hr 06/29/20 15:15 06/29/20 16:39 IVCONT 10 mcg/kg/min .Q0M PAULIE 18.6 mls/hr Titration Protocol Per Protocol Pharmacy Consult 1 each 06/29/20 10:40 Consult Rx Perform Med Rec MISCELLANE ONCE PRN Consult order Home Medications Medication Instructions Recorded Confirmed Last Taken Type Combivent Respimat 1 puff INHALATION QID PRN 11/27/19 06/29/20 Unknown History Incruse Ellipta 1 puff INHALATION DAILY 11/27/19 06/29/20 06/29/20 History amlodipine 1 tab PO DAILY 11/27/19 06/29/20 06/29/20 History levothyroxine 1 tab PO DAILY 11/27/19 06/29/20 06/29/20 History losartan 1 tab PO DAILY 11/27/19 06/29/20 06/29/20 History carvedilol 1 tab PO BID 06/29/20 06/29/20 06/29/20 History morphine 1 tab PO Q12H PRN 06/30/20 06/30/20 Unknown History Physical Exam Vital Signs: Vital Signs: Last Vital Signs Temp 97.9 F 06/29/20 18:39 Pulse 54 06/29/20 18:39 Resp 12 06/29/20 18:39 BP 109/46 L 06/29/20 18:39 Pulse Ox 95 06/29/20 18:39 Body Mass Index 19.3 Results Labs CBC and Chem 7: 06/30/20 05:36 06/30/20 05:36 Labs: Laboratory Results - last 24 hr 06/29/20 06/29/20 06/29/20 10:46 12:00 12:00 MCV 87.5 MCH 27.6 MCHC 31.6 RDW 18.6 H Plt Count 104 L MPV 10.1 Immature Gran % (Auto) 0.4 Neut % (Auto) 69.2 Lymph % (Auto) 23.0 [place] % (Auto) 6.1 Eos % (Auto) 0.7 Baso % (Auto) 0.6 Lymph # (Auto) 2.8 [place] # (Auto) 0.8 Eos # (Auto) 0.1 Baso # (Auto) 0.1 Abs Immat Gran (auto) 0.05 H Absolute Neuts (auto) 8.5 H Absolute Nucleated RBC 0.000 Nucleated RBC % (auto) 0.0 Anion Gap 16 Estim Creat Clear Calc 10.2 Estimated GFR 12 POC Glucose 86 Random Glucose 101 Lactic Acid Calcium 8.2 L D Total Bilirubin Direct Bilirubin AST ALT Alkaline Phosphatase Ammonia Troponin I High Sens B-Natriuretic Peptide Total Protein Albumin Lipase 106 H Urine Color Urine Appearance Urine pH Ur Specific [place] Urine Protein Urine Glucose (UA) Urine Ketones Urine Blood Urine Nitrite Ur Leukocyte Esterase COVID-19 ([place]) [facility]-[employer] 06/29/20 06/29/20 06/29/20 12:00 12:00 12:00 MCV MCH MCHC RDW Plt Count MPV Immature Gran % (Auto) Neut % (Auto) Lymph % (Auto) [place] % (Auto) Eos % (Auto) Baso % (Auto) Lymph # (Auto) [place] # (Auto) Eos # (Auto) Baso # (Auto) Abs Immat Gran (auto) Absolute Neuts (auto) Absolute Nucleated RBC Nucleated RBC % (auto) Anion Gap Estim Creat Clear Calc Estimated GFR POC Glucose Random Glucose Lactic Acid 1.3 Calcium Total Bilirubin 0.7 Direct Bilirubin 0.3 AST 18 ALT 7 Alkaline Phosphatase 71 Ammonia 52 Troponin I High Sens B-Natriuretic Peptide Total Protein 6.3 L Albumin 3.3 L Lipase Urine Color Urine Appearance Urine pH Ur Specific [place] Urine Protein Urine Glucose (UA) Urine Ketones Urine Blood Urine Nitrite Ur Leukocyte Esterase COVID-19 ([place]) COVID-[employer] 06/29/20 06/29/20 06/29/20 12:00 12:00 13:38 MCV MCH MCHC RDW Plt Count MPV Immature Gran % (Auto) Neut % (Auto) Lymph % (Auto) [place] % (Auto) Eos % (Auto) Baso % (Auto) Lymph # (Auto) [place] # (Auto) Eos # (Auto) Baso # (Auto) Abs Immat Gran (auto) Absolute Neuts (auto) Absolute Nucleated RBC Nucleated RBC % (auto) Anion Gap Estim Creat Clear Calc Estimated GFR POC Glucose Random Glucose Lactic Acid Calcium Total Bilirubin Direct Bilirubin AST ALT Alkaline Phosphatase Ammonia Troponin I High Sens 22.7 H* B-Natriuretic Peptide 175 H Total Protein Albumin Lipase Urine Color YELLOW Urine Appearance CLOUDY Urine pH 5.5 Ur Specific [place] 1.025 Urine Protein NEG Urine Glucose (UA) NEG Urine Ketones NEG Urine Blood NEG Urine Nitrite NEG Ur Leukocyte Esterase NEG COVID-19 ([place]) Negative COVID-19 Clin Com See Note 06/29/20 15:41 MCV MCH MCHC RDW Plt Count MPV Immature Gran % (Auto) Neut % (Auto) Lymph % (Auto) [place] % (Auto) Eos % (Auto) Baso % (Auto) Lymph # (Auto) [place] # (Auto) Eos # (Auto) Baso # (Auto) Abs Immat Gran (auto) Absolute Neuts (auto) Absolute Nucleated RBC Nucleated RBC % (auto) Anion Gap Estim Creat Clear Calc Estimated GFR POC Glucose Random Glucose Lactic Acid Calcium Total Bilirubin Direct Bilirubin AST ALT Alkaline Phosphatase Ammonia Troponin I High Sens 42.6 H* D B-Natriuretic Peptide Total Protein Albumin Lipase Urine Color Urine Appearance Urine pH Ur Specific [place] Urine Protein Urine Glucose (UA) Urine Ketones Urine Blood Urine Nitrite Ur Leukocyte Esterase COVID-19 ([place]) COVID-19 Clin Com Imaging Radiologist's Impressions: Impressions Chest X-Ray 06/29/20 10:41 IMPRESSION: Unremarkable examination. Head CT 06/29/20 10:41 IMPRESSION: Limited exam due to motion. No acute intracranial findings. Air in the left side of the face. Partially visualized bilateral parotid lesions. Critical Care Time Critical Care Time (minutes): 90
[2020-06-29 22:18] LABS: Thyroid Stimulating Hormone > 100.00 uIU/mL (0.32-4.0)
[2020-06-29 22:26] LABS: Phosphorus 5.1 mg/dL (2.7-4.5)
[2020-06-29] MEDS: cefTRIAXone sodium 2 GM in 0.9 % Sodium Chloride 50 ML IV (22:37)
[2020-06-29 22:43] LABS: MN% 93.4 %; PMN% 6.6 %; WBC Peritoneal Fluid 0.933 X10*3/uL
[2020-06-29 22:44] LABS: RBC Peritoneal Fluid < 0.002 X10*6/uL
[2020-06-29 23:15] LABS: BF Shift QC OK YES; Lymphocyte Peritoneal Fl 53 %; Monocytes Peritoneal Fl 28 %; Neutrophils Peritoneal Fluid 10 %; Other Peritioneal Fl 9 %
[2020-06-30] VITALS (34 sets, daily range): BP systolic 89–155; BP diastolic 36–80; PULSE 15–78; RESP 11–65; TEMP 36.2–37.1; O2SAT 86–97; BMI 18.5
[2020-06-30 00:08] LABS: Free T4 (Free Thyroxine) < 0.40 ng/dL (0.71-1.85)
[2020-06-30 00:09] LABS: Thyroid Stimulating Hormone > 100.00 uIU/mL (0.32-4.0)
[2020-06-30] MEDS: Levothyroxine Sodium 100 MCG VIAL 300 MCG IVPUSH (01:18)
[2020-06-30] MEDS: DOPamine HCL/D5W 400 MG/250 ML PLAST..BAG 37.2 MG IVCONT (01:18)
[2020-06-30 05:45] LABS: VBG Base Excess 2.9 mmol/L; VBG HCO3 26 mmol/L (22-26); VBG pCO2 37 mmHg; VBG pH 7.45 (7.32-7.43); VBG pO2 64 mmHg
[2020-06-30 05:47] LABS: MANUAL DIFF FLAG NO
[2020-06-30 05:49] LABS: Basophils Absolute Auto 0.1 X10*3/uL (0.0-0.2); Basophils Percent Auto 0.4 % (0-2); Eosinophils Percent Auto 0.2 % (0-4); Hematocrit 41.3 % (37-47); Hemoglobin 13.2 g/dl (12.0-16.0); Imm Gran Abs Auto 0.04 X10*3/uL (0.00-0.03); Imm Gran Pct Auto 0.3 % (0.0-0.4); Lymphocytes Absolute Auto 2.6 X10*3/uL (1.2-4.9); Lymphocytes Percent Auto 20.4 % (20-40); Mean Corpuscular Hemoglobin 27.5 pg (27.0-33.0); Mean Platelet Volume 9.2 fL (9.4-12.3); Monocytes Absolute Auto 0.7 X10*3/uL (0.1-1.2); Monocytes Percent Auto 5.3 % (2-11); Neutrophils Absolute Auto 9.4 X10*3/uL (2.0-8.3); Neutrophils Percent Auto 73.4 % (45-73); Platelet Count 110 X10*3/uL (160-400); Red Cell Distribution Width 17.5 % (11.0-16.0); White Blood Count 12.8 X10*3/uL (4.8-10.8)
[2020-06-30 05:51] LABS: Venous Blood Gas Refer to POC result
[2020-06-30 06:13] LABS: Alanine Aminotransferase 8 U/L (0-31); Albumin Level 3.3 g/dL (3.5-5.0); Alkaline Phosphatase 79 U/L (39-117); Anion Gap 17 (12-20); Aspartate Amino Transferase 19 U/L (5-31); Bilirubin Total 0.6 mg/dL (0.0-1.0); Blood Urea Nitrogen 33 mg/dL (9-16); Calcium 8.2 mg/dL (8.4-10.2); Carbon Dioxide 24 mmol/L (22-29); Chloride 102 mmol/L (96-108); Creatinine Clr Calc Pharmacy 12.5; Estimated Glomerular Filt Rate 15; Glucose Random 112 mg/dL (60-115); Potassium 3.6 mmol/L (3.3-5.1); Sodium 139 mmol/L (135-145); Total Protein 6.5 g/dL (6.5-8.0)
--- NOTE | 2020-06-30 06:28 | PC.NURSE ---
Pt to floor from ED. VSS on dopamine gtt- titrated per EMAR Pt alert to self and place, drowsy but easily arrouasable. SB on tele- mid 40s-50s. TSH >100; FT4 <0.4- PA aware, gave IV synthroid per emar. LS course throughouyt, occasional cough, satting well on 2L. U/o 20-50ml/hr, bath given, repo q2hr, airtap bed, prevalon mattress used. Family updated over phone throughout night.
--- NOTE | 2020-06-30 06:36 | PM.CCPN ---
Subjective Subjective Date of Service: 06/30/20 Interval History: Patient was admitted last night with mental status changes, bradycardia and hypotension, placed on a dopamine drip. Patient with significant past medical history B-cell lymphoma, cardiomyopathy, coronary artery disease status post quadruple bypass, hypertension, peripheral vascular disease, liver cirrhosis, acute kidney injury with last known baseline of 1.2 as recent as January of this year and currently with a creatinine of 3.6. Known to be taking opioids for which Narcan was given in the emergency room with some improvement of her alertness. Overnight the patient appear to be following commands and unable to carry a conversation. Patient is full code and this was discussed in detail with patient's healthcare proxy who is at bedside per the patient's granddaughter Lien. Patient remained bradycardic with heart rate as low as 45 beats per minute, her dopamine has been increased to 20 mg per hour. I did note that the patient has been taking Coreg and Norvasc and given the renal failure I was concerned about beta-sara retention and toxicity for which to mg of glucagon IV were given without improvement of heart rate. I also added a TSH level and these was greater than 100; study was repeated with a new draw an free T4 was also added which once again showed TSH greater than 100 and free T4 less than 0.4. Levothyroxine 300 mcg IV x1 was given (upon consulting with Darshan from [facility] pharmacy); patient should continue to receive 100 mcg of levothyroxine daily and the levels should be redrawn in next couple of days with hope of starting her on p.o. agents. VS 141/47, heart rate 54, respirations 12, O2 sat 96% on room air. Alert and oriented to person but not to place or time, able to follow basic commands, unable to answer questions appropriately. Skin: Fragile, thin, multiple ecchymotic spots throughout the upper extremities; otherwise intact. HEENT: Normocephalic, atraumatic, unable to assess extraocular movements. View call membranes dry, neck supple, no JVD, masses, Cardiac: Bradycardic 54 beats per minute, clears wants to with a 3/6 crescendo best heard at the left upper sternal border. Pulmonary: Clear to auscultation bilaterally. Abdominal: A distended, semi soft, nontender to palpation. Right lower quadrant catheter noted. Clean, dry, intact surroundings. Musculoskeletal: Moving all 4 extremities on her own at the major joints, no calf tenderness, no asymmetry. No edema. Vascular: 2+ pulses bilaterally upper and lower extremities Neuro: As above otherwise no focal deficits. No asterixis. Laboratories: White count 12.8, H&H 13 and 41 respectively. Electrolytes normal. Creatinine 3.2 (down from 3.8) Venous blood gas pending. AScites fluid obtained and After cleaning the patient is abdomen right lower quadrant area around the catheter and the catheter itself with chlorhexidine, using sterile preps and after clamping the abdominal catheter, the current valve was replaced in a sterile fashion and a total 520 cc of clear yellow abdominal fluid was noted, it was transparent. Patient tolerated this well, fluid was sent for analysis. ECHOCARDIOGRAPHY for hemodynamic monitorin. Wall thickness appears slightly thickened 2. LV cavity size is normal, and LV fxn is hypokinetic, with approximated EF 20-25%. 3. RV size looks normal on the parasternal and apical 4-chamber views were difficult to assess but appears 1 to 1 ratio 4. LA and RA not adequately assessed. 5. AoV not assessed. 6. MV appears normal with 1+ MR by color ishan. 7. TV appears normal with at least 2+ TR by color ishan, with CWD jet measuring 1.6m/sec, or gradient of 20 mm. 8. IVC normal sized and minimally contractile with inspiration. Estimated CVP of 8. Assessment plan: 1.Metabolic encephalopathy and bradycardia likely due to myxedema 2.Severe hypothyroidism 3.Acute on chronic kidney injury 4.Clinical dehydration with risk of fluid overload if aggressive hydration is done 5.CHF and underlying and ischemic cardiomyopathy 6.Abnormal troponin likely a cyst but likely due to hypoperfusion 7.Chronic ascites, doubt spontaneous bacterial peritonitis unlikely sepsis 8. B-cell lymphoma history Maintain high heart rate due to her underlying cardiomyopathy. Continue with current care, continue with IV levothyroxine (100mcg IV daily), consider gentle IV fluids, hold beta-sara and Norvasc. Consider Cardiology consult for possible pacemaker evaluation versus AICD. Overall the patient's prognosis is poor, she is barely 48 kilos a and her quality of life is not the best, despite of a prolonged talk with family members, remains full code. Discussed with Dr. Conde Critical Care Time (minutes): 60 Physical Exam Vital Signs: Vital Signs: Last Vital Signs Temp 98.6 F 06/30/20 06:00 Pulse 55 06/30/20 06:00 Resp 11 L 06/30/20 06:00 BP 135/51 L 06/30/20 06:00 Pulse Ox 97 06/30/20 06:00 Body Mass Index 18.5 Objective Data Labs CBC & Chem 7: 06/30/20 05:36 06/30/20 05:36 Labs: Laboratory Results - last 24 hr 06/29/20 06/29/20 06/29/20 10:46 12:00 12:00 WBC 12.3 H RBC 4.31 Hgb 11.9 L Hct 37.7 MCV 87.5 MCH 27.6 MCHC 31.6 RDW 18.6 H Plt Count 104 L MPV 10.1 Immature Gran % (Auto) 0.4 Neut % (Auto) 69.2 Lymph % (Auto) 23.0 [place] % (Auto) 6.1 Eos % (Auto) 0.7 Baso % (Auto) 0.6 Lymph # (Auto) 2.8 [place] # (Auto) 0.8 Eos # (Auto) 0.1 Baso # (Auto) 0.1 Abs Immat Gran (auto) 0.05 H Absolute Neuts (auto) 8.5 H Absolute Nucleated RBC 0.000 Nucleated RBC % (auto) 0.0 VBG pH VBG pCO2 VBG pO2 VBG HCO3 VBG O2 Saturation VBG Base Excess Sodium 139 Potassium 3.5 Chloride 100 Carbon Dioxide 27 Anion Gap 16 BUN 32 H D Creatinine 3.82 H Estim Creat Clear Calc 10.2 Estimated GFR 12 POC Glucose 86 Random Glucose 101 Lactic Acid Calcium 8.2 L D Phosphorus Total Bilirubin Direct Bilirubin AST ALT Alkaline Phosphatase Ammonia Troponin I High Sens B-Natriuretic Peptide Total Protein Albumin Lipase 106 H TSH Free T4 Urine Color Urine Appearance Urine pH Ur Specific [place] Urine Protein Urine Glucose (UA) Urine Ketones Urine Blood Urine Nitrite Ur Leukocyte Esterase Peritoneal WBC Peritoneal RBC Periton Neutrophils Periton Lymphocytes Peritoneal Monocytes Peritoneal Other Cells Peritoneal Tot Protein Peritoneal LDH Peritoneal Glucose COVID-19 ([place]) COVID-19 Clin Com 06/29/20 06/29/20 06/29/20 12:00 12:00 12:00 WBC RBC Hgb Hct MCV MCH MCHC RDW Plt Count MPV Immature Gran % (Auto) Neut % (Auto) Lymph % (Auto) [place] % (Auto) Eos % (Auto) Baso % (Auto) Lymph # (Auto) [place] # (Auto) Eos # (Auto) Baso # (Auto) Abs Immat Gran (auto) Absolute Neuts (auto) Absolute Nucleated RBC Nucleated RBC % (auto) VBG pH VBG pCO2 VBG pO2 VBG HCO3 VBG O2 Saturation VBG Base Excess Sodium Potassium Chloride Carbon Dioxide Anion Gap BUN Creatinine Estim Creat Clear Calc Estimated GFR POC Glucose Random Glucose Lactic Acid 1.3 Calcium Phosphorus 5.1 H Total Bilirubin 0.7 Direct Bilirubin 0.3 AST 18 ALT 7 Alkaline Phosphatase 71 Ammonia 52 Troponin I High Sens B-Natriuretic Peptide Total Protein 6.3 L Albumin 3.3 L Lipase TSH > 100.00 H Free T4 Urine Color Urine Appearance Urine pH Ur Specific [place] Urine Protein Urine Glucose (UA) Urine Ketones Urine Blood Urine Nitrite Ur Leukocyte Esterase Peritoneal WBC Peritoneal RBC Periton Neutrophils Periton Lymphocytes Peritoneal Monocytes Peritoneal Other Cells Peritoneal Tot Protein Peritoneal LDH Peritoneal Glucose COVID-19 ([place]) COVID-19 Secret [employer] 06/29/20 06/29/20 06/29/20 12:00 12:00 13:38 WBC RBC Hgb Hct MCV MCH MCHC RDW Plt Count MPV Immature Gran % (Auto) Neut % (Auto) Lymph % (Auto) [place] % (Auto) Eos % (Auto) Baso % (Auto) Lymph # (Auto) [place] # (Auto) Eos # (Auto) Baso # (Auto) Abs Immat Gran (auto) Absolute Neuts (auto) Absolute Nucleated RBC Nucleated RBC % (auto) VBG pH VBG pCO2 VBG pO2 VBG HCO3 VBG O2 Saturation VBG Base Excess Sodium Potassium Chloride Carbon Dioxide Anion Gap BUN Creatinine Estim Creat Clear Calc Estimated GFR POC Glucose Random Glucose Lactic Acid Calcium Phosphorus Total Bilirubin Direct Bilirubin AST ALT Alkaline Phosphatase Ammonia Troponin I High Sens 22.7 H* B-Natriuretic Peptide 175 H Total Protein Albumin Lipase TSH Free T4 Urine Color YELLOW Urine Appearance CLOUDY Urine pH 5.5 Ur Specific [place] 1.025 Urine Protein NEG Urine Glucose (UA) NEG Urine Ketones NEG Urine Blood NEG Urine Nitrite NEG Ur Leukocyte Esterase NEG Peritoneal WBC Peritoneal RBC Periton Neutrophils Periton Lymphocytes Peritoneal Monocytes Peritoneal Other Cells Peritoneal Tot Protein Peritoneal LDH Peritoneal Glucose COVID-19 ([place]) Negative COVID-19 Secret Sales See Note 05/17/21 05/17/21 05/17/21 15:41 21:50 22:10 WBC RBC Hgb Hct MCV MCH MCHC RDW Plt Count MPV Immature Gran % (Auto) Neut % (Auto) Lymph % (Auto) [place] % (Auto) Eos % (Auto) Baso % (Auto) Lymph # (Auto) [place] # (Auto) Eos # (Auto) Baso # (Auto) Abs Immat Gran (auto) Absolute Neuts (auto) Absolute Nucleated RBC Nucleated RBC % (auto) VBG pH VBG pCO2 VBG pO2 VBG HCO3 VBG O2 Saturation VBG Base Excess Sodium Potassium Chloride Carbon Dioxide Anion Gap BUN Creatinine Estim Creat Clear Calc Estimated GFR POC Glucose Random Glucose Lactic Acid Calcium Phosphorus Total Bilirubin Direct Bilirubin AST ALT Alkaline Phosphatase Ammonia Troponin I High Sens 42.6 H* D B-Natriuretic Peptide Total Protein Albumin Lipase TSH Free T4 Urine Color Urine Appearance Urine pH Ur Specific [place] Urine Protein Urine Glucose (UA) Urine Ketones Urine Blood Urine Nitrite Ur Leukocyte Esterase Peritoneal WBC 0.933 Peritoneal RBC < 0.002 Periton Neutrophils 10 Periton Lymphocytes 53 Peritoneal Monocytes 28 Peritoneal Other Cells 9 Peritoneal Tot Protein Cancelled Peritoneal LDH Peritoneal Glucose COVID-19 ([place]) COVID-[employer] 06/29/20 06/29/20 06/29/20 22:10 22:10 23:12 WBC RBC Hgb Hct MCV MCH MCHC RDW Plt Count MPV Immature Gran % (Auto) Neut % (Auto) Lymph % (Auto) [place] % (Auto) Eos % (Auto) Baso % (Auto) Lymph # (Auto) [place] # (Auto) Eos # (Auto) Baso # (Auto) Abs Immat Gran (auto) Absolute Neuts (auto) Absolute Nucleated RBC Nucleated RBC % (auto) VBG pH VBG pCO2 VBG pO2 VBG HCO3 VBG O2 Saturation VBG Base Excess Sodium Potassium Chloride Carbon Dioxide Anion Gap BUN Creatinine Estim Creat Clear Calc Estimated GFR POC Glucose Random Glucose Lactic Acid Calcium Phosphorus Total Bilirubin Direct Bilirubin AST ALT Alkaline Phosphatase Ammonia Troponin I High Sens B-Natriuretic Peptide Total Protein Albumin Lipase TSH Free T4 Cancelled Urine Color Urine Appearance Urine pH Ur Specific [place] Urine Protein Urine Glucose (UA) Urine Ketones Urine Blood Urine Nitrite Ur Leukocyte Esterase Peritoneal WBC Peritoneal RBC Periton Neutrophils Periton Lymphocytes Peritoneal Monocytes Peritoneal Other Cells Peritoneal Tot Protein Peritoneal LDH Cancelled Peritoneal Glucose Cancelled COVID-19 ([place]) COVID-19 Secret Sales 06/29/20 06/30/20 06/30/20 23:12 05:36 05:36 WBC 12.8 H RBC 4.80 Hgb 13.2 Hct 41.3 MCV 86.0 MCH 27.5 MCHC 32.0 RDW 17.5 H Plt Count 110 L MPV 9.2 L Immature Gran % (Auto) 0.3 Neut % (Auto) 73.4 H Lymph % (Auto) 20.4 [place] % (Auto) 5.3 Eos % (Auto) 0.2 Baso % (Auto) 0.4 Lymph # (Auto) 2.6 [place] # (Auto) 0.7 Eos # (Auto) 0.0 Baso # (Auto) 0.1 Abs Immat Gran (auto) 0.04 H Absolute Neuts (auto) 9.4 H Absolute Nucleated RBC 0.000 Nucleated RBC % (auto) 0.0 VBG pH VBG pCO2 VBG pO2 VBG HCO3 VBG O2 Saturation VBG Base Excess Sodium 139 Potassium 3.6 Chloride 102 Carbon Dioxide 24 Anion Gap 17 BUN 33 H Creatinine 3.12 H Estim Creat Clear Calc 12.5 Estimated GFR 15 POC Glucose Random Glucose 112 Lactic Acid Calcium 8.2 L Phosphorus Total Bilirubin 0.6 Direct Bilirubin AST 19 ALT 8 Alkaline Phosphatase 79 Ammonia Troponin I High Sens B-Natriuretic Peptide Total Protein 6.5 Albumin 3.3 L Lipase TSH > 100.00 H Free T4 < 0.40 L Urine Color Urine Appearance Urine pH Ur Specific [place] Urine Protein Urine Glucose (UA) Urine Ketones Urine Blood Urine Nitrite Ur Leukocyte Esterase Peritoneal WBC Peritoneal RBC Periton Neutrophils Periton Lymphocytes Peritoneal Monocytes Peritoneal Other Cells Peritoneal Tot Protein Peritoneal LDH Peritoneal Glucose COVID-19 ([place]) COVID-19 Clin Com 06/30/20 05:38 WBC RBC Hgb Hct MCV MCH MCHC RDW Plt Count MPV Immature Gran % (Auto) Neut % (Auto) Lymph % (Auto) [place] % (Auto) Eos % (Auto) Baso % (Auto) Lymph # (Auto) [place] # (Auto) Eos # (Auto) Baso # (Auto) Abs Immat Gran (auto) Absolute Neuts (auto) Absolute Nucleated RBC Nucleated RBC % (auto) VBG pH 7.45 H VBG pCO2 37 VBG pO2 64 VBG HCO3 26 VBG O2 Saturation 92.0 VBG Base Excess 2.9 Sodium Potassium Chloride Carbon Dioxide Anion Gap BUN Creatinine Estim Creat Clear Calc Estimated GFR POC Glucose Random Glucose Lactic Acid Calcium Phosphorus Total Bilirubin Direct Bilirubin AST ALT Alkaline Phosphatase Ammonia Troponin I High Sens B-Natriuretic Peptide Total Protein Albumin Lipase TSH Free T4 Urine Color Urine Appearance Urine pH Ur Specific [place] Urine Protein Urine Glucose (UA) Urine Ketones Urine Blood Urine Nitrite Ur Leukocyte Esterase Peritoneal WBC Peritoneal RBC Periton Neutrophils Periton Lymphocytes Peritoneal Monocytes Peritoneal Other Cells Peritoneal Tot Protein Peritoneal LDH Peritoneal Glucose COVID-19 ([place]) COVID-19 Clin Com Microbiology Microbiology Results: Microbiology 06/29/20 21:50 Peritoneal Fluid Gram Stain - Preliminary
[2020-06-30 07:17] LABS: LDH Peritoneal Fluid 96; Total Protein Peritoneal Fluid 2.8
[2020-06-30 07:18] LABS: Glucose Peritoneal Fluid 157
--- NOTE | 2020-06-30 09:26 | MHC.CDI.CONC ---
CDI Concurrent Query Service Date: 06/30/20 Documentation Clarification: CHRONIC SYSTOLIC HEART FAILURE Please clarify if you are treating a probable/suspected/likely or confirmed: Specifics to documentation: Chronic diastolic and/or systolic Congestive heart failure Acute on chronic diastolic and/or systolic Congestive heart failure Please specify if known or undetermined Provider Response: Other Other Diagnosis: Chronic systolic heart failure PLEASE DO NOT DELETE/MODIFY EXISTING CONTENT Additional information is needed in order to code to the highest accuracy and appropriate Severity of Illness (SOI). Please clarify the information noted below in your progress notes and discharge summary. Risk Factors/Clinical Indicators/Treatments PMH - CHF ICU: 06/29 - CMOP and CHF w EF 20-25%. BNP 175 H ICU: 06/30 - CHF and underlying and ischemic cardiomyopathy. CDS: Carrie Cisneros CCS, CDIS Contact Number: [phone] Please Review the information above and exercise your independent professional judgment in responding to the query. If you concur, pleas document in the PROGRESS NOTES and DISCHARGE SUMMARY. If you do not agree with the query, please document in the query above. THIS QUERY IS PART OF THE PERMANENT MEDICAL RECORD
[2020-06-30 09:52] LABS: Troponin-I High Sensitivity 23.3 ng/L (<3.5-17.0)
[2020-06-30] MEDS: DOPamine HCL/D5W 400 MG/250 ML PLAST..BAG 18.6 MG IVCONT (09:52)
--- NOTE | 2020-06-30 10:23 | MHC.CLN ---
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
[2020-06-30] MEDS: Levothyroxine Sodium 100 MCG VIAL IVPUSH (10:52)
[2020-06-30] MEDS: Heparin Sodium,Porcine 5,000 UNIT/ML VIAL 5000 UNIT SUBCUT ×2 (10:52→20:23)
[2020-06-30] MEDS: Hydrocortisone Sod Succ/PF 100 MG VIAL IVPUSH (12:01)
--- NOTE | 2020-06-30 13:18 | CA_ITS ---
Transthoracic Echocardiogram Patient (Last, First, Middle): Diana Sharif, Gender: Female Date of : 1945 Age: 74 Procedure Date: 06/30/2020 Procedure Type: Transthoracic Echocardiogram Location: ICU Height: 160.02 cm Weight: 47.17 kg BSA: 1.46 m2 Heart Rate: bpm BP: 119 / 46 mmHg Dress Draper: BENJAMIN George MD: Negro Conde [employer] Mechanic: Leonard Jackson MD Symptoms: refractory hypotension Study Quality: Fair ECG Rhythm: Sinus bradycardia Conclusions: - 1. Mild LV systolic dysfunction with pseudonormal filling pattern with inferior inferoseptal wall motion abnormality 2. Normal cardiac valvular Doppler 3. Normal RV systolic pressure 4. No pericardial effusion Findings Left Ventricle Normal left ventricular cavity size. There is normal left ventricular wall thickness. The left ventricular systolic function is mildly decreased. The visually estimated ejection fraction is between 45-50%. Spectral Doppler is indicative of a pseudonormal filling pattern. E/E prime ratio is >15, consistent with elevated filling pressures. Evidence suggests grade II (moderate) diastolic dysfunction. There is basal inferoseptal and basal inferior regional wall motion abnormality seen Right Ventricle Normal right ventricular cavity size and systolic function. Atria The left atrium is elongated. There is no evidence of interatrial shunt. The right atrium is normal in size. Aortic Valve Normal aortic valve structure and function. There is no aortic valve stenosis. There is no aortic valve regurgitation. Mitral Valve There is mild anterior mitral leaflet thickening. There is mild mitral annular calcification. There is trace mitral valve regurgitation. There is no mitral valve stenosis. Tricuspid Valve Likely normal tricuspid valve structure and function. There is mild tricuspid valve regurgitation. The right ventricular systolic pressure is normal. The right ventricular systolic pressure is 30 mmHg. Low right atrial pressure. There is no evidence of pulmonary hypertension. Great Vessels All visible segments of the aorta are normal in size. The pulmonary artery was not well visualized. Venous The inferior vena cava is collapsed, consistent with reduced intravascular volume. Pericardium/Pleural There is no evidence of pericardial effusion. Prior Study Comparison Changes noted compared to prior study dated: 08/21/2018. LV systolic function has significantly improved Measurements 2D Linear Measurements IVSd: 0.80 0.6-0.9/0.6-1.0 cm LVIDd: 5.77 3.9-5.3/4.2-5.9 cm LVIDd Index: 3.95 2.4-3.2/2.2-3.1 cm/m2 LVIDs: 4.63 2.0-3.6 cm LVPWd: 0.88 0.7-1.1 cm LV Mass: 228.69 67-162/88-224 g LV Mass Index: 156.64 43-95/49-115 g/m2 2D Systolic Function EF 4C: 50.40 >55% EF 2C: 47.30 >55% Mitral Valve MV Pk E: 1.09 MV PK A: 0.81 MV Decel Time: 208.00 E/A: 1.30 E'Lateral: 7.29 E'Medial: 57.20 E/E' Med: 1.90 E/E' Lat: 15.00 PHT: 61.00 MVA PHT: 3.61 Decel Kerr: 5.24 Diastolic Function MV Pk E: 1.09 MV Pk A: 0.81 E/A: 1.30 E'Medial: 57.20 E/E' Med: 1.90 E' Laterial: 7.29 E/E' Lat: 15.00 Tricuspid Valve TR Pk Grad: 27.00 RA Press: 3.00 RVSP: 30.00 Updated in Other Vendor System with Status of Final Leonard Jackson MD electronically signed on 06/30/2020 3:50:54 PM with status of Final
[2020-06-30] MEDS: Lactated Ringers 250 ML 999 ML IV (13:30)
--- NOTE | 2020-06-30 13:34 | MHC.CM.PN ---
pt lives c her daughter and grandaughter, both of them care for her. 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 has been made. pt uses a walker c ambulation. pt does not want to go to [facility] but wants to return home [place]. pt's daughter will provide transportation at [place]. dc plan is home under the care of the daughter and grandaughter and hvjoseph. cm to cont. to follow.
--- NOTE | 2020-06-30 13:37 | PM.CCPN ---
Subjective Subjective Date of Service: 06/30/20 Interval History: Mrs. Sharif was admitted to ICU yesterday afternoon because of bradycardia and hypotension. 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 The patient takes oxycodone and morphine for chronic pain control. The patient lives in an apartment and her daughter lives with her and takes care of her. The granddaughter (the daughter?s daughter) is the HCP and manages the patient?s medications. According to an oncology note on 03/11/[address] Ferreira, the patient was found to have liver cirrhosis, abdominal adenopathy and ascites in August 2018. CT abdomen at [facility] demonstrated ascites, bulky peripancreatic and retroperitoneal lymphadenopathy, liver cirrhosis with evidence of portal hypertension, mild splenomegaly and perisplenic and perihepatic gastric varices. Paracentesis performed 08/22/2018 was negative for carcinoma, but showed atypical CD20 positive B cells which lacked surface light chain expression; was also negative for CD5 and CD10. Was suggestive of B-cell lymphoproliferative disorder. Lymph node biopsy from left abdomen performed 11/01/2018 detected clonal CD20 positive B-cell population that expresses CD23 and dim surface lambda light chain, negative for CD5 and CD10. Differential diagnosis was marginal zone lymphoma and lymphoplasmacytic lymphoma. PET scan performed 11/15/2018 showed intensely FDG avid retroperitoneal, periportal and peripancreatic lymphadenopathy, FDG avid abdominal soft tissue masses intimately associated with loops of bowel, FDG avid lymphadenopathy in the mediastinum and cervical lymph nodes, as well as bilateral parotid lesions which were intensely FDG avid. Single FDG avid osseous lesion in the right iliac bone showed no corresponding CT findings. 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 She was given rituximab weekly x4. Unfortunately she developed a severe reaction to rituximab. PET scan 12/31/2019 showed progression of the lymphoma with increase in FDG avidity and size of extensive lymphadenopathy in neck, chest and abdomen. In Dr. Ferreira?s note of Mar 11, she says that the patient had decided to not receive any further treatment and wanted palliative/hospice care. Her cardiac health was also poor. Since then she?s had multiple therapeutic paracenteses. She had a tunneled paracentesis catheter placed by IR last month. According to the Granddaughter, the patient declined hospice care and is now receiving palliative care. 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 The patient was BIBA to the ED yesterday morning (06/29) after becoming unresponsive after being given her morning medications, which included oxycodone. 911 was called. On arrival at the scene, the patient was unresponsive. Gluc was 119, the patient was maintaining breathing and airway. She was bradycardic and hypotensive to 80/40. On arrival to the emergency department, the patient was unresponsive. SpO2 was reportedly 98% on room air. HR 81, BP 102/43. The patient was given 2 mg IV Narcan. She then became fully responsive. But her HR dropped into 40?s, BP into 70?s. Atropine 1mg increased her heart rate to the 60s, but with no significant blood pressure improvement. Dopamine was started. On 10 mcg, HR came up to 70?s, BP to the 130s. The abdomen was flat and benign. Labs in the ED were notable for white count of 12.3 (normal range 6-9), hemoglobin of 11.9, platelet count of [id number]. BUN and creatinine were 32/3.8 (baseline in 11/2019 was 1.2), potassium 3.5, bicarb 27, glucose 101, normal LFTs, ammonia 52, albumin 3.3, Lactic acid 1.3. Screening u/a negative. Brain CT was unremarkable. (The head CT also showed air in the soft tissues of the left side of the face, which represented air in the parotid duct, of no clinical consequence, according to the radiologist.) The patient was admitted to ICU. Because of the beta-sara that she was taking, Glucagon 2 mg was given, with no improvement in the heart rate. A TSH was added to her labs and came back >100 The free T4 was undetectable. The patient was given levothyroxine 300 mcg IV. Overnight the patient became more awake, following commands. Code status was discussed with patient's healthcare proxy, the patient's granddaughter Lien. They insisted on full code status. The patient remained bradycardic with heart rate as low as 45, dopamine had to be increased to 20ug. This morning, Mrs Sharif is fully A&O and asking appropriate questions. She doesn?t know what happened yesterday. Breathing easy with RR 15, Sat 90% on RA. HR 50, BP 130/50 on Dopamine 10ug. Temp 98.4 (she?s been normothermic thruout, lowest temp was 97.3? yesterday). No JVD at 20?. Chest shows coarse crackles at right base. RRR, oksana, possible 1/6 systolic murmur, possible S4. Abdomen benign. No edema. ECHOCARDIOGRAPHY done by the [facility] and interpreted by me: 1. Wall thickness probably normal 2. LV cavity size is normal, and LV fxn shows RWMA with marked septal hypokinesis, possibly apical dyskinesis, with EF about 30%. 3. RV size is normal 4. MV normal with trace MR by color ishan. 5. TV normal with 1+ TR by color ishan, with no significant CWD jet. 8. IVC normal sized, about 1.3 cm, with about 50% insp collapse. RVSP is normal. CXR this afternoon: NAPD. IMPRESSION: 1. End stage malignant lymphoma. Need to talk w family about her code status. 2. Unresponsiveness yesterday. Presumed 2? unintentional opiate OD. Fully resolved. 3. Symptomatic bradycardia. Unclear etiology. Presumably 2? severe hypothyroidism. 4. Hypotension. 2? bradycardia and CMOP. Formal echo pending and will recheck volume status. We?ve been unable to taper Dopamine down. Holding Coreg and amlodipine. 5. Severe hypothyroidism/myxedema. Family insisted that she was getting her thyroid med. Undoubtedly, she was getting generic thyroid. Could be that that particular brand had minimal thyroid in it. We are now dosing her IV. Discussed with Dr. Nunez and Dr. Jackson and with pharmacy at great length this morning. Plan 100ug IV today and tomorrow, and then 50ug daily thereafter. Recheck free T4 level tomorrow and the next day. Also add hydrocortisone to prevent precipitating adrenal crisis. HC 100mg now, then 50 mg tid. 6. HONG. ? hypovolemia with contributing ATN 2? low CO. 7. Hypoxemia. CXR is clear, heart is small. Unclear etiology. ? Chronic underlying lung disease, presumably 2? smoking. She is a long time and current smoker. 8. ID. Clinically, she's not septic. Peritoneal fluid analysis was negative. Cultures and BCs negative so far. Spoke with family and updated on condition, treatment, prognosis. No opportunity today for discussion of code status. Critical care time: 80 min. Critical Care Time (minutes): 80 Physical Exam Vital Signs: Vital Signs: Last Vital Signs Temp 98.8 F 06/30/20 13:00 Pulse 56 06/30/20 13:00 Resp 13 06/30/20 13:00 BP 89/36 L 06/30/20 13:09 Pulse Ox 87 L 06/30/20 13:00 Body Mass Index 18.5 Objective Data Labs CBC & Chem 7: 06/30/20 05:36 06/30/20 05:36 Labs: Laboratory Results - last 24 hr 06/29/20 06/29/20 06/29/20 12:00 13:38 15:41 WBC RBC Hgb Hct MCV MCH MCHC RDW Plt Count MPV Immature Gran % (Auto) Neut % (Auto) Lymph % (Auto) [place] % (Auto) Eos % (Auto) Baso % (Auto) Lymph # (Auto) [place] # (Auto) Eos # (Auto) Baso # (Auto) Abs Immat Gran (auto) Absolute Neuts (auto) Absolute Nucleated RBC Nucleated RBC % (auto) VBG pH VBG pCO2 VBG pO2 VBG HCO3 VBG O2 Saturation VBG Base Excess Sodium Potassium Chloride Carbon Dioxide Anion Gap BUN Creatinine Estim Creat Clear Calc Estimated GFR Random Glucose Calcium Phosphorus 5.1 H Total Bilirubin AST ALT Alkaline Phosphatase Troponin I High Sens 42.6 H* D Total Protein Albumin TSH > 100.00 H Free T4 Urine Color YELLOW Urine Appearance CLOUDY Urine pH 5.5 Ur Specific [place] 1.025 Urine Protein NEG Urine Glucose (UA) NEG Urine Ketones NEG Urine Blood NEG Urine Nitrite NEG Ur Leukocyte Esterase NEG Peritoneal WBC Peritoneal RBC Periton Neutrophils Periton Lymphocytes Peritoneal Monocytes Peritoneal Other Cells Peritoneal Tot Protein Peritoneal LDH Peritoneal Glucose 06/29/20 06/29/20 06/29/20 21:50 21:50 22:10 WBC RBC Hgb Hct MCV MCH MCHC RDW Plt Count MPV Immature Gran % (Auto) Neut % (Auto) Lymph % (Auto) [place] % (Auto) Eos % (Auto) Baso % (Auto) Lymph # (Auto) [place] # (Auto) Eos # (Auto) Baso # (Auto) Abs Immat Gran (auto) Absolute Neuts (auto) Absolute Nucleated RBC Nucleated RBC % (auto) VBG pH VBG pCO2 VBG pO2 VBG HCO3 VBG O2 Saturation VBG Base Excess Sodium Potassium Chloride Carbon Dioxide Anion Gap BUN Creatinine Estim Creat Clear Calc Estimated GFR Random Glucose Calcium Phosphorus Total Bilirubin AST ALT Alkaline Phosphatase Troponin I High Sens Total Protein Albumin TSH Free T4 Urine Color Urine Appearance Urine pH Ur Specific [place] Urine Protein Urine Glucose (UA) Urine Ketones Urine Blood Urine Nitrite Ur Leukocyte Esterase Peritoneal WBC 0.933 Peritoneal RBC < 0.002 Periton Neutrophils 10 Periton Lymphocytes 53 Peritoneal Monocytes 28 Peritoneal Other Cells 9 Peritoneal Tot Protein 2.8 Cancelled Peritoneal LDH 96 Peritoneal Glucose 157 06/29/20 06/29/20 06/29/20 22:10 22:10 23:12 WBC RBC Hgb Hct MCV MCH MCHC RDW Plt Count MPV Immature Gran % (Auto) Neut % (Auto) Lymph % (Auto) [place] % (Auto) Eos % (Auto) Baso % (Auto) Lymph # (Auto) [place] # (Auto) Eos # (Auto) Baso # (Auto) Abs Immat Gran (auto) Absolute Neuts (auto) Absolute Nucleated RBC Nucleated RBC % (auto) VBG pH VBG pCO2 VBG pO2 VBG HCO3 VBG O2 Saturation VBG Base Excess Sodium Potassium Chloride Carbon Dioxide Anion Gap BUN Creatinine Estim Creat Clear Calc Estimated GFR Random Glucose Calcium Phosphorus Total Bilirubin AST ALT Alkaline Phosphatase Troponin I High Sens Total Protein Albumin TSH Free T4 Cancelled Urine Color Urine Appearance Urine pH Ur Specific [place] Urine Protein Urine Glucose (UA) Urine Ketones Urine Blood Urine Nitrite Ur Leukocyte Esterase Peritoneal WBC Peritoneal RBC Periton Neutrophils Periton Lymphocytes Peritoneal Monocytes Peritoneal Other Cells Peritoneal Tot Protein Peritoneal LDH Cancelled Peritoneal Glucose Cancelled 06/29/20 06/30/20 06/30/20 23:12 05:36 05:36 WBC 12.8 H RBC 4.80 Hgb 13.2 Hct 41.3 MCV 86.0 MCH 27.5 MCHC 32.0 RDW 17.5 H Plt Count 110 L MPV 9.2 L Immature Gran % (Auto) 0.3 Neut % (Auto) 73.4 H Lymph % (Auto) 20.4 [place] % (Auto) 5.3 Eos % (Auto) 0.2 Baso % (Auto) 0.4 Lymph # (Auto) 2.6 [place] # (Auto) 0.7 Eos # (Auto) 0.0 Baso # (Auto) 0.1 Abs Immat Gran (auto) 0.04 H Absolute Neuts (auto) 9.4 H Absolute Nucleated RBC 0.000 Nucleated RBC % (auto) 0.0 VBG pH VBG pCO2 VBG pO2 VBG HCO3 VBG O2 Saturation VBG Base Excess Sodium 139 Potassium 3.6 Chloride 102 Carbon Dioxide 24 Anion Gap 17 BUN 33 H Creatinine 3.12 H Estim Creat Clear Calc 12.5 Estimated GFR 15 Random Glucose 112 Calcium 8.2 L Phosphorus Total Bilirubin 0.6 AST 19 ALT 8 Alkaline Phosphatase 79 Troponin I High Sens Total Protein 6.5 Albumin 3.3 L TSH > 100.00 H Free T4 < 0.40 L Urine Color Urine Appearance Urine pH Ur Specific [place] Urine Protein Urine Glucose (UA) Urine Ketones Urine Blood Urine Nitrite Ur Leukocyte Esterase Peritoneal WBC Peritoneal RBC Periton Neutrophils Periton Lymphocytes Peritoneal Monocytes Peritoneal Other Cells Peritoneal Tot Protein Peritoneal LDH Peritoneal Glucose 06/30/20 06/30/20 06/30/20 05:36 05:38 08:47 WBC RBC Hgb Hct MCV MCH MCHC RDW Plt Count MPV Immature Gran % (Auto) Neut % (Auto) Lymph % (Auto) [place] % (Auto) Eos % (Auto) Baso % (Auto) Lymph # (Auto) [place] # (Auto) Eos # (Auto) Baso # (Auto) Abs Immat Gran (auto) Absolute Neuts (auto) Absolute Nucleated RBC Nucleated RBC % (auto) VBG pH 7.45 H VBG pCO2 37 VBG pO2 64 VBG HCO3 26 VBG O2 Saturation 92.0 VBG Base Excess 2.9 Sodium Potassium Chloride Carbon Dioxide Anion Gap BUN Creatinine Estim Creat Clear Calc Estimated GFR Random Glucose Calcium Phosphorus Total Bilirubin AST ALT Alkaline Phosphatase Troponin I High Sens Cancelled 23.3 H* Total Protein Albumin TSH Free T4 Urine Color Urine Appearance Urine pH Ur Specific [place] Urine Protein Urine Glucose (UA) Urine Ketones Urine Blood Urine Nitrite Ur Leukocyte Esterase Peritoneal WBC Peritoneal RBC Periton Neutrophils Periton Lymphocytes Peritoneal Monocytes Peritoneal Other Cells Peritoneal Tot Protein Peritoneal LDH Peritoneal Glucose Microbiology Microbiology Results: Microbiology 05/17/21 21:50 Peritoneal Fluid Gram Stain - Preliminary 06/29/20 21:50 Peritoneal Fluid Routine Culture - Preliminary No growth to date. 06/29/20 21:50 Peritoneal Fluid Anaerobic Culture - Preliminary No growth to date. Critical Care Time Critical Care Time (minutes): 90
[2020-06-30] MEDS: Dextrose 5 % and Lactated Ring 1,000 ML 50 ML IVCONT (15:45)
--- NOTE | 2020-06-30 18:00 | PC.NURSE ---
Upon assessment this morning, patient drowsy but arousable to verbal stimuli, oriented to person and place. Afebrile. Sinus oksana with frequent PVCs and previously document ST depressions on tele and BBB, MD aware. HR in the 40s and 50s, MD aware. MAP >65 on Dopamine drip, drip titrated down from writer (see APR for titration documentation). Noted to have coarse crackles on auscultation, notified MD. O2 sats trending around 96% on 2L NC, known history of COPD and patient states current smoker. Titrated O2 off to RA, O2 sats trending between 88-91%, MD aware and ok with O2 sat and RA. Patient refused nicotine replacement. Followup CXR ordered, no new interventions ordered. BSx4. Abdomen soft and nontender. Peritoneal drain to RLQ, previously drained by night RN. No BM, MD aware. Patient requiring frequent encouragement of PO intake of fluids, eating <25% off requested liquid meals, MD made aware. Noted to have low urine output <20-30 ml/hr, notified MD. Administered bolus of 250 ml of LR x2 and started on maintenance fluids of D5LR at 50 ml/hr. Urine output improved to 40 ml/hr, MD updated. No obvious changes to lung sounds or respiratory distress noted. Skin C/D/I. Scattered bruising to extremities. 12 carin to scalp remain in place from previous injury prior to admission. Laceration healing, well approximated, no s/s of infections. Per rounds patient started on subcut heparin and sequential devices.
[2020-06-30] MEDS: Hydrocortisone Sod Succ/PF 100 MG VIAL 50 MG IVPUSH (20:23)
[2020-07-01] VITALS (23 sets, daily range): BP systolic 104–152; BP diastolic 44–65; PULSE 44–68; RESP 12–20; TEMP 36.4–37.1; O2SAT 91–96; BMI 17.9
[2020-07-01] MEDS: DOPamine HCL/D5W 400 MG/250 ML PLAST..BAG 18.6 MG IVCONT (00:55)
[2020-07-01] MEDS: Hydrocortisone Sod Succ/PF 100 MG VIAL 50 MG IVPUSH ×3 (04:18→20:26)
[2020-07-01 05:32] LABS: MANUAL DIFF FLAG NO
[2020-07-01 05:42] LABS: Basophils Percent Auto 0.1 % (0-2); Hematocrit 39.5 % (37-47); Hemoglobin 13.2 g/dl (12.0-16.0); Imm Gran Abs Auto 0.04 X10*3/uL (0.00-0.03); Imm Gran Pct Auto 0.3 % (0.0-0.4); Lymphocytes Absolute Auto 2.1 X10*3/uL (1.2-4.9); Lymphocytes Percent Auto 15.8 % (20-40); Mean Corpuscular HGB Conc 33.4 g/dl (31.0-35.0); Mean Corpuscular Hemoglobin 27.5 pg (27.0-33.0); Mean Corpuscular Volume 82.3 fL (80-98); Mean Platelet Volume 9.2 fL (9.4-12.3); Monocytes Absolute Auto 0.2 X10*3/uL (0.1-1.2); Monocytes Percent Auto 1.5 % (2-11); Neutrophils Absolute Auto 11.1 X10*3/uL (2.0-8.3); Neutrophils Percent Auto 82.3 % (45-73); Platelet Count 122 X10*3/uL (160-400); Red Cell Distribution Width 17.5 % (11.0-16.0); White Blood Count 13.5 X10*3/uL (4.8-10.8)
[2020-07-01 06:12] LABS: Alanine Aminotransferase 8 U/L (0-31); Alkaline Phosphatase 71 U/L (39-117); Anion Gap 14 (12-20); Aspartate Amino Transferase 14 U/L (5-31); Bilirubin Total 0.3 mg/dL (0.0-1.0); Blood Urea Nitrogen 27 mg/dL (9-16); Calcium 8.5 mg/dL (8.4-10.2); Carbon Dioxide 27 mmol/L (22-29); Chloride 101 mmol/L (96-108); Creatinine Clr Calc Pharmacy 15.8; Estimated Glomerular Filt Rate 21; Glucose Random 168 mg/dL (60-115); Potassium 3.5 mmol/L (3.3-5.1); Sodium 138 mmol/L (135-145)
[2020-07-01 06:31] LABS: Free T4 (Free Thyroxine) 0.81 ng/dL (0.71-1.85)
[2020-07-01] MEDS: Levothyroxine Sodium 100 MCG VIAL IVPUSH (10:11)
[2020-07-01] MEDS: Heparin Sodium,Porcine 5,000 UNIT/ML VIAL 5000 UNIT SUBCUT ×2 (10:11→22:24)
[2020-07-01 10:57] LABS: Triiodothyronine T3 Free <0.5 pg/mL (2.3-4.2)
[2020-07-01] MEDS: Dextrose 5 % and Lactated Ring 1,000 ML 50 ML IVCONT (10:58)
--- NOTE | 2020-07-01 13:09 | PC.NURSE ---
FAMILY MEETING HELD WITH FAMILY, SIEBEL ARCHITECT, AND THIS RN. CODE STATUS CHANGED TO DNR/DNI AND MOLST FORM FILLED OUT WITH FAMILY AND PT AT BEDSIDE. FORM SIGNED BY MD. CODE STATUS ORDER CHANGED IN EMAR. CONTINUING TO TITRATE DOPAMINE GTT PER MD INSTRUCTIONS.
--- NOTE | 2020-07-01 13:45 | P.PNCC_ITS ---
Subjective Subjective Date of Service: 07/01/20 Interval History: Mrs. Sharif was admitted to ICU June 29 because of bradycardia and hypotension. 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 The patient takes oxycodone and morphine for chronic pain control. The patient lives in an apartment and her daughter lives with her and takes care of her. The granddaughter (the daughter?s daughter) is the HCP and manages the patient?s medications. According to an oncology note on 03/11/[address] Ferreira, the patient was found to have liver cirrhosis, abdominal adenopathy and ascites in August 2018. CT abdomen at [facility] demonstrated ascites, bulky peripancreatic and retroperitoneal lymphadenopathy, liver cirrhosis with evidence of portal hypertension, mild splenomegaly and perisplenic and perihepatic gastric varices. Paracentesis performed 08/22/2018 was negative for carcinoma, but showed atypical CD20 positive B cells which lacked surface light chain expression; was also negative for CD5 and CD10. Was suggestive of B-cell lymphoproliferative disorder. Lymph node biopsy from left abdomen performed 11/01/2018 detected cl onal CD20 positive B-cell population that expresses CD23 and dim surface lambda light chain, negative for CD5 and CD10. Differential diagnosis was marginal zone lymphoma and lymphoplasmacytic lymphoma. PET scan performed 11/15/2018 showed intensely FDG avid retroperitoneal, periportal and peripancreatic lymphadenopathy, FDG avid abdominal soft tissue masses intimately associated with loops of bowel, FDG avid lymphadenopathy in the mediastinum and cervical lymph nodes, as well as bilateral parotid lesions which were intensely FDG avid. Single FDG avid osseous lesion in the right iliac bone showed no corresponding CT findings. 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 She was given rituximab weekly x4. Unfortunately she developed a severe reaction to rituximab. PET scan 12/31/2019 showed progression of the lymphoma with increase in FDG avidity and size of extensive lymphadenopathy in neck, chest and abdomen. In Dr. Ferreira?s note of Mar 11, she says that the patient had decided to not receive any further treatment and wanted palliative/hospice care. Her cardiac health was also poor. Since then she?s had multiple therapeutic paracenteses. She had a tunneled paracentesis catheter placed by IR last month. According to the Granddaughter, the patient declined hospice care and is now receiving palliative care. HISTORY OF PRESENT ILLNESS: The night [employer] the patient had reportedly been very confused, made no sense at all on the telephone. The patient was BIBA to the ED on June 29 after becoming unresponsive after being given her morning medications, which included oxycodone. 911 was called. On arrival at the scene, the patient was unresponsi ve. Gluc was 119, the patient was maintaining breathing and airway. She was bradycardic and hypotensive to 80/40. On arrival to the emergency department, the patient was unresponsive. SpO2 was reportedly 98% on room air. HR 81, BP 102/43. The patient was given 2 mg IV Narcan. She then became fully responsive. But her HR dropped into 40?s, BP into 70?s. Atropine 1mg increased her heart rate to the 60s, but with no significant blood pressure improvement. Dopamine was started. On 10 mcg, HR came up to 70?s, BP to the 130s. The abdomen was flat and benign. Labs in the ED were notable for white count of 12.3 (normal range 6-9), hemoglobin of 11.9, platelet count of [id number]. BUN and creatinine were 32/3.8 (baseline in 11/2019 was 1.2), potassium 3.5, bicarb 27, glucose 101, normal L FTs, ammonia 52, albumin 3.3, Lactic acid 1.3. Screening u/a negative. Brain CT was unremarkable. (The head CT also showed air in the soft tissues of the left side of the face, which represented air in the parotid duct, of no clinical consequence, according to the radiologist.) The patient was admitted to ICU. Because of the beta-sara that she was taking, Glucagon 2 mg was given, with no improvement in the heart rate. A TSH was added to her labs and came back >100 The free T4 was undetectable. The patient was given levothyroxine 300 mcg IV. Overnight that night, the patient became more awake, following commands. The patient remained bradycardic with heart rate as low as 45, dopamine had to be increased to 20ug. By the next morning (yesterday morning), Mrs Sharif was fully A&O with entirely normal mental status. Heart rate was still in the 40s however, and she still needed dopamine 10 mcg. We discussed her situation with Dr. Nunez from Endocrine. Management plan was for 100ug thyroxin daily x 2 days, then 50 ug daily, then eventually switch over to oral thyroid using synthroid, not a generic, and to follow daily free T4 levels for a few days. Also, hydrocortisone supplementation to make sure she doesn?t develop adrenal crisis. This morning, she remains fully A&O. Dopamine is down to 5ug, HR is mostly > 50, but not 100%. BP is running 110/50. Breathing easy with Sat 90% on room air. She remains afebrile and normothermic. No JVD at 20-30?. Chest still shows coarse crackles at right base. RRR, oksana, possible 1/6 systolic murmur. Abdomen benign. No edema. LABORATORY DATA: White count up slightly to 13.5, platelet count up slightly to 122. BUN/creatinine down to 27/2.2. Free T4 this morning 0.81. ECHOCARDIOGRAPHY done 06/30: 1. Wall thickness normal 2. LV cavity size is normal, and LV fxn shows RWMA with marked septal hypokinesis, possibly apical dyskinesis, with EF about 40%. 3. RV size and fxn is normal 4. MV normal with trace MR by color ishan. 5. TV normal with 1+ TR by color ishan, with no significant CWD jet. 8. IVC normal sized, about 1.3 cm, with about 50% insp collapse. RVSP is normal. CXR yesterday: ?The lungs are well-expanded without acute pneumonic consolidation or pleural effusion. There is increased vascular markings both lungs with a soft tissue density in the left suprahilar region measuring approximate 1.8 cm, question nodule or focal infiltrate.? CT chest was suggested. IMPRESSION: 1. End stage malignant lymphoma. Spoke with family at length in conference today. We spoke about code status and I indicated that CPR is not meant for patients with cancer and severe disease and people who were naturally in the e nding phase of life. They understand the situation and fully agreed to DNR status. They and the patient filled out a MOLST form. 2. Unresponsiveness on admission to the ED. Presumed 2? unintentional opiate OD. Fully resolved. 3. Severe hypothyroidism/myxedema. Family insisted that she was getting her thyroid med, but on close questioning today, it?s not at all certain. Nonetheless, she was undoubtedly getting generic thyroid. Could be that that particular brand had minimal thyroid in it. We are now dosing her IV. 100ug IV today and tomorrow for a total loading of 500ug, then 50ug daily thereafter. Checking free T4 level daily for a few days. When she goes home, she should be prescribed Synthroid, not generic thyroid. Also added hydrocortisone to prevent precipitating adrenal crisis. Now getting HC 50 mg tid. 4. Symptomatic bradycardia. Presumably 2? severe hypothyroidism. I?ll have Cardiology do a formal consult. D/w Dr. Jackson. 5. Hypotension. 2? bradycardia, CMOP, and hypovolemia (by echo). We?ve been giving her IVF, and her renal indices are down. Continue holding Coreg and amlodipine. 6. HONG. Hypovolemia with ?contributing ATN 2? low CO. 7. Hypoxemia. CXR is relatively clear. She no doubt has chronic underlying lung disease 2? smoking. (She is a long time and current smoker.) Will send for plain chest CT today. 8. ID: Clinically, she's not septic. Peritoneal fluid analysis was negative. Cultures and BCs negative so far. Critical care time: 75+ min. Critical Care Time (minutes): 75 Physical Exam Vital Signs: Vital Signs: Last Vital Signs Temp 98.6 F 07/01/20 13:00 Pulse 50 07/01/20 13:00 Resp 16 07/01/20 13:00 BP 110/50 L 07/01/20 13:00 Pulse Ox 91 L 07/01/20 13:00 Body Mass Index 17.9 Objective Data Labs CBC & Chem 7: 07/01/20 05:28 07/01/20 05:28 Labs: Laboratory Results - last 24 hr 06/29/20 07/01/20 07/01/20 23:12 05:28 05:28 WBC 13.5 H RBC 4.80 Hgb 13.2 Hct 39.5 MCV 82.3 MCH 27.5 MCHC 33.4 RDW 17.5 H Plt Count 122 L MPV 9.2 L Immature Gran % (Auto) 0.3 Neut % (Auto) 82.3 H Lymph % (Auto) 15.8 L Harrison % (Auto) 1.5 L Eos % (Auto) 0.0 Baso % (Auto) 0.1 Lymph # (Auto) 2.1 Harrison # (Auto) 0.2 Eos # (Auto) 0.0 Baso # (Auto) 0.0 Abs Immat Gran (auto) 0.04 H Absolute Neuts (auto) 11.1 H Absolute Nucleated RBC 0.000 Nucleated RBC % (auto) 0.0 Sodium 138 Potassium 3.5 Chloride 101 Carbon Dioxide 27 Anion Gap 14 BUN 27 H Creatinine 2.29 H Estim Creat Clear Calc 15.8 Estimated GFR 21 Random Glucose 168 H D Calcium 8.5 Total Bilirubin 0.3 AST 14 ALT 8 Alkaline Phosphatase 71 Total Protein 6.0 L Albumin 3.0 L Free T4 0.81 Free T3 <0.5 L Microbiology Microbiology Results: Microbiology 06/29/20 21:50 Peritoneal Fluid Gram Stain - Final 06/29/20 21:50 Peritoneal Fluid Routine Culture - Preliminary No growth to date. 06/29/20 21:50 Peritoneal Fluid Anaerobic Culture - Preliminary No growth to date. 06/29/20 12:00 Blood - Venous Blood Culture - Preliminary No growth after 24 hours. 06/29/20 12:00 Blood - Venous Blood Culture - Preliminary No growth after 24 hours. Critical Care Time Critical Care Time (minutes): 90
[2020-07-01] MEDS: Potassium Chloride ER 20 MEQ TAB.ER.PRT PO ×2 (13:49→17:39)
[2020-07-01 14:05] LABS: Magnesium 2.7 mg/dL (1.6-2.6)
[2020-07-01] MEDS: Lactated Ringers 500 ML 250 ML IV (14:30)
--- NOTE | 2020-07-01 14:53 | PM.CNCAR ---
History of Present Illness History of Present Illness Date of Service: 07/01/20 Requesting physician: Negro Conde Consult reason: hypotension and other (Sinus bradycardia) Chief complaint: Bradycardia, Hypotension Narrative: I was asked to see Diana in cardiology consultation today because of persistent low blood pressure requiring dopamine use and persistent sinus bradycardia. She has extremely complicated past medical history as documented by . She has prior history of advance B-cell lymphoma, not tolerating of chemotherapy with progression and was planned initially for palliative/supportive care. Patient presented to the hospital 06/29/2020 with altered mental status and was noted to have bradycardia and hypotension. She was started on IV dopamine drip and the cause was clearly unknown initially. Heart subsequent workup revealed marked hypothyroidism with TSH greater than 100 and nondetectable T4. Patient then subsequently given IV T4 replacement therapy. Her T4 this morning as at 0.81, however she remains bradycardic with heart rate in the upper 40s and low 50s with isolated PVCs. Blood pressure is more stable now with systolic 110. She has had reducing requirements of dopamine currently at 4 mcg. Mentally she is awake and alert and conversing appropriately. She are does not know the details of her past medical history which is extensive. She denies any chest pain, lightheadedness, palpitations, shortness of breath. Cardiology consultation was requested due to persistent bradycardia and relative hypotension. Echocardiogram yesterday shows mildly reduced LV systolic function with LVEF of 45-50% which is much improved compared to prior reported LV ejection fraction with inferior inferoseptal wall motion abnormality at pseudonormal filling pattern with collapsed IVC suggestive of intravascular volume depletion. Patient has been given IV fluids gingerly, no overt heart failure. She has no overt signs of sepsis as per the critical care team note. Patient with prior history of coronary artery disease status post 4 vessel coronary artery bypass grafting as per her at [facility], details not currently available , history of ischemic cardiomyopathy, cirrhosis, hypothyroidism Review of Systems Constitutional: Constitutional: Reports no additional constitutional complaints Cardiovascular: Cardiovascular: Reports no additional cardiovascular complaints Respiratory: Respiratory: Reports no additional respiratory complaints Gastrointestinal: Gastrointestinal: Reports no additional gastrointestinal complaints Genitourinary: Genitourinary: Reports no additional female genitourinary complaints Neurologic: Reports system reviewed and no additional complaints, except as documented Psychiatric: Psychiatric: Reports no additional psychiatric complaints [facility] Past Medical History Medical History Ascites Asthma CAD (coronary artery disease) Cellulitis Cirrhosis of liver with ascites GERD (gastroesophageal reflux disease) High cholesterol Hypertension Hypothyroid Malignant ascites PAD (peripheral artery disease) Parotid gland enlargement Family History Family History Father No problems noted. Mother Rheumatoid arthritis CVD (cardiovascular disease) Surgical History Surgical History History of carotid endarterectomy History of quadruple bypass Hx of angioplasty Hx of CABG Social History Social History Household Members: Family Household Members Other:: daughter and great granddaughter Housing: Apartment Do you presently have visiting nurse or other home services: No Unable to assess alcohol history related to: Unknown Alcohol intake: never Smoking Status: Current every day smoker Tobacco Type: Cigarette Packs Per Day: 1 Years Smoked: 55 Smoked in Last 30 Days: Yes Patient Given Instructions on How to Stop Smoking: Yes Date Education Initiated: 06/29/20 Second Hand Smoke Exposure: No Use of substances other than those prescribed or required for medical reasons: No Currently Displaying Signs/Symptoms of Drug Intoxication Withdrawal: No Have you been hit, kicked, punched, or otherwise hurt by someone within the past year? If so, by whom?: No Do you feel safe in your current relationship?: No Current Relationship Is there a partner from a previous relationship who is making you feel unsafe now?: No Are you made to feel afraid or neglected: No Advance Directives: Yes Advance Directives Information Provided: No Advance Directives on File: Yes Advance Directives Date on File: 07/01/20 Do you have thoughts of harming others: None Do you have a plan to hurt others: No Plan service: No Current occupational status: retired Meds Allergies Allergy/AdvReac Type Severity Reaction Status Date / Time atorvastatin AdvReac Unknown NASAL Verified 11/27/19 12:14 BLEEDING Active Medications: Current Medications Generic Name Dose Route Start Last Admin Trade Name Freq PRN Reason Stop Dose Admin Heparin Sodium (Porcine) 5,000 unit 06/30/20 10:00 07/01/20 10:11 Heparin Sodium,Porcine 5,000 Unit/Ml Vial SUBCUT 5,000 unit Q12H PAULIE Administration Hydrocortisone Sodium Succinate 50 mg 06/30/20 20:00 07/01/20 11:02 Hydrocortisone Sod Succ/Pf 100 Mg Vial IVPUSH 50 mg Q8H PAULIE Administration Dopamine HCl/Dextrose 400 mg in 250 mls @ 0 mls/hr 06/29/20 15:15 07/01/20 13:07 IVCONT 4 mcg/kg/min .Q0M PAULIE 7.44 mls/hr Titration Protocol Per Protocol Dextrose/Lactated Ringer's 1,000 mls @ 50 mls/hr 06/30/20 15:45 07/01/20 10:58 D5lr IVCONT 50 mls/hr .Q20H PAULIE Administration Lactated Ringer's 500 mls @ 250 mls/hr 07/01/20 14:30 07/01/20 14:30 Lr IV 07/01/20 16:29 250 mls/hr .Q2H PAULIE Administration Levothyroxine Sodium 50 mcg 07/03/20 06:00 Levothyroxine Sodium 100 Mcg Vial IVPUSH DAILY@0600 PAULIE Levothyroxine Sodium 100 mcg 07/02/20 08:00 Levothyroxine Sodium 100 Mcg Vial IVPUSH 07/02/20 08:01 ONCE ONE Liothyronine Sodium 25 mcg 07/01/20 14:45 Liothyronine Sodium 25 Mcg Tablet PO DAILY PAULIE Potassium Chloride 20 meq 07/01/20 13:34 07/01/20 13:49 Potassium Chloride Er 20 Meq Tab.Er.Prt PO 07/01/20 21:01 20 meq BID PAULIE Administration Home Medications Medication Instructions Recorded Confirmed Last Taken Type Combivent Respimat 1 puff INHALATION QID PRN 11/27/19 06/29/20 Unknown History Incruse Ellipta 1 puff INHALATION DAILY 11/27/19 06/29/20 06/29/20 History amlodipine 1 tab PO DAILY 11/27/19 06/29/20 06/29/20 History levothyroxine 1 tab PO DAILY 11/27/19 06/29/20 06/29/20 History losartan 1 tab PO DAILY 11/27/19 06/29/20 06/29/20 History carvedilol 1 tab PO BID 06/29/20 06/29/20 06/29/20 History morphine 1 tab PO Q12H PRN 06/30/20 06/30/20 Unknown History Physical Exam Vital Signs: Vital Signs: Last Vital Signs Temp 98.8 F 07/01/20 14:00 Pulse 65 07/01/20 14:00 Resp 20 07/01/20 14:00 BP 104/51 L 07/01/20 14:00 Pulse Ox 96 07/01/20 14:00 Body Mass Index 17.9 Const: General: cooperative, comfortable, no acute distress, alert and awake Nutritional Appearance: underweight Orientation/consciousness: patient oriented x3 HENMT: Head: Yes normocephalic and Yes atraumatic Neck: Neck: Yes trachea midline, Yes supple and Yes no JVD Resp: Effort & Inspection: normal respiratory effort Auscultation: wheezes and diminished lung sounds Cardio: Jugular venous distension: no JVD Palpation: normal PMI Rate: regular rate Rhythm: abnormal rhythm with ectopic beats Heart sounds: S1 normal heart sound present and S2 normal heart sound present GI: Auscultation: normal bowel sounds Neuro: General: patient oriented x3 and no focal motor deficits Extrem: General: Yes no clubbing, cyanosis or edema Results Labs and Meds Result diagrams: 07/01/20 05:28 07/01/20 05:28 Lab results: Laboratory Results - last 24 hr 06/29/20 07/01/20 07/01/20 23:12 05:28 05:28 WBC 13.5 H RBC 4.80 Hgb 13.2 Hct 39.5 MCV 82.3 MCH 27.5 MCHC 33.4 RDW 17.5 H Plt Count 122 L MPV 9.2 L Immature Gran % (Auto) 0.3 Neut % (Auto) 82.3 H Lymph % (Auto) 15.8 L [place] % (Auto) 1.5 L Eos % (Auto) 0.0 Baso % (Auto) 0.1 Lymph # (Auto) 2.1 [place] # (Auto) 0.2 Eos # (Auto) 0.0 Baso # (Auto) 0.0 Abs Immat Gran (auto) 0.04 H Absolute Neuts (auto) 11.1 H Absolute Nucleated RBC 0.000 Nucleated RBC % (auto) 0.0 Sodium 138 Potassium 3.5 Chloride 101 Carbon Dioxide 27 Anion Gap 14 BUN 27 H Creatinine 2.29 H Estim Creat Clear Calc 15.8 Estimated GFR 21 Random Glucose 168 H D Calcium 8.5 Magnesium 2.7 H Total Bilirubin 0.3 AST 14 ALT 8 Alkaline Phosphatase 71 Total Protein 6.0 L Albumin 3.0 L Free T4 0.81 Free T3 <0.5 L Imaging Radiologist's impression: Impressions Chest CT 07/01/20 14:12 IMPRESSION: Mild bronchial wall thickening and increased peribronchial attenuation suggestive of airways disease. No evidence of pneumonia. Stable subcentimeter right upper lobe nodule from previous PET/CT scan December 2019. Stable enlarged subcarinal mediastinal lymph node. New enlarged right axillary lymph node. Post-CABG changes. Assessment and Plan (1) Bradycardia: Status: Acute Patient has persistent sinus bradycardia in the setting of severe hypothyroidism and prior use of carvedilol therapy. She also presents with acute kidney injury. Her bradycardia appears to be multifactorial related to all above. She has responded well to thyroid replacement therapy with gradually improving heart rate and reducing requirement of dopamine. However continue thyroid replacement therapy at this point in time. Consider endocrine consult. Continue to taper dopamine drip as patient's heart rate remained stable and blood pressure remains stable. I do not think there is an indication at this time for transvenous pacing therapy. Also there is no indication for permanent pacemaker therapy at this point in time. Hopefully over the next 24-48 hours patient heart rate continues to improve. Continue to hold rate lowering medications at this point in time. (2) Acute hypotension: Status: Acute Presentation with hypotension on admission which has improved significantly with good peripheral perfusion at this point in time with systolic blood pressure in the 110 range on low-dose dopamine therapy. Hypertension appears to be multifactorial related to hypovolemia as well as significant bradycardia with low stroke volume causing hypotension. Suggest some fluid bolus over the next 2 hours. Blood pressure remained stable gradually taper and discontinue dopamine therapy. Continue to treat bradycardia with thyroid replacement therapy. Continue to monitor clinically. All her antihypertensive medications have been held appropriately. Will follow with the patient. Procedures Date of Service Date of Service: 07/01/20
[2020-07-01] MEDS: Liothyronine Sodium 25 MCG TABLET PO (15:18)
[2020-07-01] MEDS: DOPamine HCL/D5W 400 MG/250 ML PLAST..BAG 5.58 MG IVCONT (17:40)
--- NOTE | 2020-07-01 20:56 | W.PM.CCHP ---
Procedures Date of Service Date of Service: 07/01/20 EJ/Peripheral Line Neck L: Time out performed: Yes Skin cleansed in sterile fashion: Yes Size (gauge): 20 IV secured and dressing applied: Yes Patient tolerated procedure: well and no complications Additional comments: I was unable to obtain IV access on the patient's right antecubital area, left arm chew very little vessels, after obtaining consent from the patient, she was placed in Trendelenburg position and the procedure was curious in normal fashion. Good a blood return and flush from the site. No complications.
--- NOTE | 2020-07-01 21:40 | W.PM.CCHP ---
Procedures Date of Service Date of Service: 07/01/20 Procedure Note Procedure Note: Patient's left scalp and was evaluated, I shows a large laceration well approximated with 12 carin and good scarring tissue without any evidence of infection, hematoma. In a normal fashion and using a staple remover a total of 12 carin were removed successfully. Patient tolerated procedure well, there were no complications.
[2020-07-02] VITALS (18 sets, daily range): BP systolic 99–148; BP diastolic 41–76; PULSE 44–98; RESP 15–23; TEMP 36.5–37; O2SAT 94–100; BMI 19.5
[2020-07-02] MEDS: Hydrocortisone Sod Succ/PF 100 MG VIAL 50 MG IVPUSH ×3 (03:24→22:10)
--- NOTE | 2020-07-02 05:25 | PC.NURSE ---
upon initial start of shift, pts dopamine infusion noted to be infiltrated into right lower arm. checo holcombdario springerclementina summoned to bedside for evaluation. dopamine was immediately moved to secondary iv site in left hand. clinical coordinator candie almeida and pharmacist mily notified. iv angio removed/area of discoloration outlined with surgical marker. arm elevated and warm chemical packs applied to infiltration site. at this juncture pharmacy recommends monitoring of dopamine infiltration. checo springerirez established iv access via LEJ to which dopamine infusion was moved to. pt has been awake most of the night. she is pleasant and conversational. she can be vague in her responses and seems forgetful in regard to time. she aburto in a purposeful fashion. at this juncture pharmacy recommends monitoring of dopamine infiltration. resp effort is regular unlabored. at times pursed lip breathing is seen. breath sounds with diffuse scattered crackles throughout. pt has a loose nonproductive cough. ecg displays sb-sr with unifocal pvcs. dopamine infusion at 3 mcg/kg/min. a bundle branch is present. abdomen round/soft. rlq has a clamped peritoneal drain. bee catheter patent and draining clear yellow urine u/o 20-30 ml/hr.
[2020-07-02 05:35] LABS: MANUAL DIFF FLAG NO
[2020-07-02 05:39] LABS: Basophils Percent Auto 0.1 % (0-2); Hematocrit 34.5 % (37-47); Hemoglobin 11.6 g/dl (12.0-16.0); Imm Gran Abs Auto 0.19 X10*3/uL (0.00-0.03); Imm Gran Pct Auto 0.8 % (0.0-0.4); Lymphocytes Absolute Auto 2.1 X10*3/uL (1.2-4.9); Lymphocytes Percent Auto 9.1 % (20-40); Mean Corpuscular HGB Conc 33.6 g/dl (31.0-35.0); Mean Corpuscular Hemoglobin 27.7 pg (27.0-33.0); Mean Corpuscular Volume 82.3 fL (80-98); Mean Platelet Volume 9.2 fL (9.4-12.3); Monocytes Absolute Auto 0.5 X10*3/uL (0.1-1.2); Monocytes Percent Auto 2.3 % (2-11); Neutrophils Absolute Auto 19.7 X10*3/uL (2.0-8.3); Neutrophils Percent Auto 87.7 % (45-73); Platelet Count 119 X10*3/uL (160-400); Red Blood Count 4.19 X10*6/uL (4.20-5.50); Red Cell Distribution Width 18.1 % (11.0-16.0); White Blood Count 22.5 X10*3/uL (4.8-10.8)
[2020-07-02 06:11] LABS: Alanine Aminotransferase 13 U/L (0-31); Albumin Level 2.7 g/dL (3.5-5.0); Alkaline Phosphatase 86 U/L (39-117); Anion Gap 11 (12-20); Aspartate Amino Transferase 27 U/L (5-31); Bilirubin Total 0.3 mg/dL (0.0-1.0); Blood Urea Nitrogen 25 mg/dL (9-16); Calcium 8.4 mg/dL (8.4-10.2); Carbon Dioxide 27 mmol/L (22-29); Chloride 104 mmol/L (96-108); Estimated Glomerular Filt Rate 29; Glucose Random 127 mg/dL (60-115); Potassium 3.9 mmol/L (3.3-5.1); Sodium 138 mmol/L (135-145); Total Protein 5.3 g/dL (6.5-8.0)
[2020-07-02] MEDS: Dextrose 5 % and Lactated Ring 1,000 ML 50 ML IVCONT (06:15)
[2020-07-02 06:30] LABS: Free T4 (Free Thyroxine) 0.81 ng/dL (0.71-1.85)
[2020-07-02] MEDS: Levothyroxine Sodium 100 MCG VIAL IVPUSH (07:27)
[2020-07-02] MEDS: Liothyronine Sodium 25 MCG TABLET PO (07:27)
--- NOTE | 2020-07-02 09:56 | ECG_ITS ---
Test Reason : RHYTHM CHECK Blood Pressure : / mmHG Vent. Rate : 066 BPM Atrial Rate : 064 BPM P-R Int : 000 ms QRS Dur : 102 ms QT Int : 456 ms P-R-T Axes : 000 053 090 degrees QTc Int : 478 ms Normal sinus rhythm with frequent Premature ventricular complexes ST & T wave abnormality, consider lateral ischemia Abnormal ECG When compared with ECG of 29-JUN-2020 10:52, Premature ventricular complexes are now Present T wave inversion no longer evident in Lateral leads Referred By: Leonard Jackson Electronically Signed By:LEONARD JACKSON MD
--- NOTE | 2020-07-02 09:57 | PM.PNCARD ---
Subjective Subjective Date of Service: 07/02/20 Principal diagnosis: Bradycardia, low blood pressure Interval history: Patient's dopamine was just under of this morning. Blood pressures remained stable. Heart rate is improved in the 60s. Showing intermittent isolated PVCs. Patient has no cardiac symptoms to report. Denies any chest pain, shortness of breath, lightheadedness. Received IV fluids overnight. Review of Systems Constitutional: Reports no additional constitutional complaints Cardiovascular: Reports no additional cardiovascular complaints Respiratory: Reports no additional respiratory complaints Gastrointestinal: Reports no additional gastrointestinal complaints Reports system reviewed and no additional complaints, except as documented Psychiatric: Reports no additional psychiatric complaints Endocrine: Reports no additional endocrine complaints Physical Exam Vital Signs: Last Vital Signs Temp 97.9 F 07/02/20 07:00 Pulse 71 07/02/20 09:00 Resp 17 07/02/20 09:00 BP 112/76 07/02/20 09:00 Pulse Ox 97 07/02/20 09:00 Body Mass Index 19.5 Const General: alert and awake Orientation/consciousness: patient oriented x3 Neck Neck: Yes trachea midline, Yes supple and Yes no JVD Resp Effort & Inspection: normal respiratory effort Auscultation: wheezes and diminished lung sounds Cardio Jugular venous distension: no JVD Palpation: normal PMI Rhythm: abnormal rhythm with ectopic beats Heart sounds: S1 normal heart sound present and S2 normal heart sound present Neuro General: patient oriented x3 and no focal motor deficits Extrem General: Yes no clubbing, cyanosis or edema Results Labs and Meds Result diagrams: 07/02/20 05:20 07/02/20 05:20 Lab results: Laboratory Results - last 24 hr 06/29/20 07/01/20 07/02/20 23:12 05:28 05:20 WBC RBC Hgb Hct MCV MCH MCHC RDW Plt Count MPV Immature Gran % (Auto) Neut % (Auto) Lymph % (Auto) [place] % (Auto) Eos % (Auto) Baso % (Auto) Lymph # (Auto) [place] # (Auto) Eos # (Auto) Baso # (Auto) Abs Immat Gran (auto) Absolute Neuts (auto) Absolute Nucleated RBC Nucleated RBC % (auto) Sodium 138 Potassium 3.9 Chloride 104 Carbon Dioxide 27 Anion Gap 11 L BUN 25 H Creatinine 1.73 H Estim Creat Clear Calc 21.0 Estimated GFR 29 Random Glucose 127 H Calcium 8.4 Magnesium 2.7 H Total Bilirubin 0.3 AST 27 D ALT 13 Alkaline Phosphatase 86 D Total Protein 5.3 L Albumin 2.7 L Free T4 0.81 Free T3 <0.5 L 07/02/20 05:20 WBC 22.5 H RBC 4.19 L Hgb 11.6 L Hct 34.5 L MCV 82.3 MCH 27.7 MCHC 33.6 RDW 18.1 H Plt Count 119 L MPV 9.2 L Immature Gran % (Auto) 0.8 H Neut % (Auto) 87.7 H Lymph % (Auto) 9.1 L [place] % (Auto) 2.3 Eos % (Auto) 0.0 Baso % (Auto) 0.1 Lymph # (Auto) 2.1 [place] # (Auto) 0.5 Eos # (Auto) 0.0 Baso # (Auto) 0.0 Abs Immat Gran (auto) 0.19 H Absolute Neuts (auto) 19.7 H Absolute Nucleated RBC 0.000 Nucleated RBC % (auto) 0.0 Sodium Potassium Chloride Carbon Dioxide Anion Gap BUN Creatinine Estim Creat Clear Calc Estimated GFR Random Glucose Calcium Magnesium Total Bilirubin AST ALT Alkaline Phosphatase Total Protein Albumin Free T4 Free T3 Imaging Radiologist's impression: Impressions Chest CT 07/01/20 14:12 IMPRESSION: Mild bronchial wall thickening and increased peribronchial attenuation suggestive of airways disease. No evidence of pneumonia. Stable subcentimeter right upper lobe nodule from previous PET/CT scan December 2019. Stable enlarged subcarinal mediastinal lymph node. New enlarged right axillary lymph node. Post-CABG changes. Progress Note: A&P Assessment and plan (1) Bradycardia: Status: Acute Assessment and Plan: Significant sinus bradycardia with hypertension related to marked hypothyroidism. This is gradually improving. Heart rate is improved. Dopamine was tapered and discontinued this morning. Our watch for bradycardia. Continue full disclosure cardiac monitoring. Continue to replace thyroid under endocrine guidance. Importance of compliance with all medications was discussed with the patient. No need for pacing therapy at this point in time. (2) Low blood pressure: Status: Acute Assessment and Plan: Admission with low blood pressure related to low stroke volume related to hypovolemia as well as bradycardia. This seems to be improving gradually. Off dopamine drip this morning. Continue p.o. fluid intake. If the blood pressure starts improving, slowly add neurohormonal modulation. (3) Cardiomyopathy: Status: Acute Assessment and Plan: Cardiomyopathy with mild LV systolic dysfunction. No symptoms or signs of heart failure at this time. Continue gentle IV hydration. Renal function is gradually improving. Will add afterload reducers once her blood pressure improves. Hold off all blood pressure lowering medication at this point time. Will sign of the case. Thank you for allowing me to partake in the care Fall Risk Details Current Medications: Current Medications Generic Name Dose Route Start Last Admin Trade Name Freq PRN Reason Stop Dose Admin Heparin Sodium (Porcine) 5,000 unit 06/30/20 10:00 07/01/20 22:24 Heparin Sodium,Porcine 5,000 Unit/Ml Vial SUBCUT 5,000 unit Q12H PAULIE Administration Hydrocortisone Sodium Succinate 50 mg 06/30/20 20:00 07/02/20 03:24 Hydrocortisone Sod Succ/Pf 100 Mg Vial IVPUSH 50 mg Q8H PAULIE Administration Dopamine HCl/Dextrose 400 mg in 250 mls @ 0 mls/hr 06/29/20 15:15 07/02/20 09:24 IVCONT 0 mcg/kg/min .Q0M PAULIE 0 mls/hr Titration Protocol Per Protocol Dextrose/Lactated Ringer's 1,000 mls @ 50 mls/hr 06/30/20 15:45 07/02/20 06:15 D5lr IVCONT 50 mls/hr .Q20H PAULIE Administration Levothyroxine Sodium 50 mcg 07/03/20 06:00 Levothyroxine Sodium 100 Mcg Vial IVPUSH DAILY@0600 PAULIE Liothyronine Sodium 25 mcg 07/01/20 14:45 07/02/20 07:27 Liothyronine Sodium 25 Mcg Tablet PO 25 mcg DAILY PAULIE Administration Potassium Chloride 20 meq 07/02/20 09:35 Potassium Chloride Er 20 Meq Tab.Er.Prt PO 07/02/20 21:01 BID PAULIE Time Spent With Patient Time: Total time spent is greater than 50% in coordination of care (as documented) at patient's floor/unit and/or counseling patient: Time with patient: 25 - 35 minutes Procedures Date of Service Date of Service: 07/02/20
--- NOTE | 2020-07-02 10:04 | MHC.CLN ---
F/U PO INTAKE POOR PER NSG PT TOOK A FEW BITES AND SIPS DIET RX: REGULAR-APPROPRIATE RECOMMEND CHANGING SUPPLEMENT TO ENSURE TID TO PROVIDE INCREASED KCALS SUPPLEMENT TO PROVIDE 1050KCALS, 60G PROTEIN MONITOR PO INTAKE CLOSELY
[2020-07-02] MEDS: Heparin Sodium,Porcine 5,000 UNIT/ML VIAL 5000 UNIT SUBCUT ×2 (10:26→22:10)
[2020-07-02] MEDS: Potassium Chloride ER 20 MEQ TAB.ER.PRT PO ×2 (10:27→22:10)
--- NOTE | 2020-07-02 10:58 | PM.CCPN ---
Subjective Subjective Date of Service: 07/02/20 Interval History: Mrs. Sharif was admitted to ICU June 29 because of bradycardia and hypotension. 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 The patient takes oxycodone and morphine for chronic pain control. The patient lives in an apartment and her daughter lives with her and takes care of her. The granddaughter Lien (the daughter?s daughter) is the HCP and manages the patient?s medications. According to an oncology note on 03/11/[address] Ferreira, the patient was found to have liver cirrhosis, abdominal adenopathy and ascites in August 2018. CT abdomen at [facility] demonstrated ascites, bulky peripancreatic and retroperitoneal lymphadenopathy, liver cirrhosis with evidence of portal hypertension, mild splenomegaly and perisplenic and perihepatic gastric varices. Paracentesis performed 08/22/2018 was negative for carcinoma, but showed atypical CD20 positive B cells which lacked surface light chain expression; was also negative for CD5 and CD10. Was suggestive of B-cell lymphoproliferative disorder. Lymph node biopsy from left abdomen performed 11/01/2018 detected clonal CD20 positive B-cell population that expresses CD23 and dim surface lambda light chain, negative for CD5 and CD10. Differential diagnosis was marginal zone lymphoma and lymphoplasmacytic lymphoma. PET scan performed 11/15/2018 showed intensely FDG avid retroperitoneal, periportal and peripancreatic lymphadenopathy, FDG avid abdominal soft tissue masses intimately associated with loops of bowel, FDG avid lymphadenopathy in the mediastinum and cervical lymph nodes, as well as bilateral parotid lesions which were intensely FDG avid. Single FDG avid osseous lesion in the right iliac bone showed no corresponding CT findings. 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 She was given rituximab weekly x4. Unfortunately she developed a severe reaction to rituximab. PET scan 12/31/2019 showed progression of the lymphoma with increase in FDG avidity and size of extensive lymphadenopathy in neck, chest and abdomen. In Dr. Ferreira?s note of Mar 11, she says that the patient had decided to not receive any further treatment and wanted palliative/hospice care. Her cardiac health was also poor. Since then she?s had multiple therapeutic paracenteses. She had a tunneled paracentesis catheter placed by IR last month. According to the Granddaughter Lien, the patient declined hospice care and is now receiving palliative care. HISTORY OF PRESENT ILLNESS: The night BUDDER the patient had reportedly been very confused, made no sense at all on the telephone. The patient was BIBA to the ED on June 29 after becoming unresponsive after being given her morning medications, which included oxycodone. 911 was called. On arrival at the scene, the patient was unresponsive. Gluc was 119, the patient was maintaining breathing and airway. She was bradycardic and hypotensive to 80/40. On arrival to the emergency department, the patient was unresponsive. SpO2 was reportedly 98% on room air. HR 81, BP 102/43. The patient was given 2 mg IV Narcan. She then became fully responsive. But her HR dropped into 40?s, BP into 70?s. Atropine 1mg increased her heart rate to the 60s, but with no significant blood pressure improvement. Dopamine was started. On 10 mcg, HR came up to 70?s, BP to the 130s. The abdomen was flat and benign. Labs in the ED were notable for white count of 12.3 (normal range 6-9), hemoglobin of 11.9, platelet count of [id number]. BUN and creatinine were 32/3.8 (baseline in 11/2019 was 1.2), potassium 3.5, bicarb 27, glucose 101, normal LFTs, ammonia 52, albumin 3.3, Lactic acid 1.3. Screening u/a negative. Brain CT was unremarkable. (The head CT also showed air in the soft tissues of the left side of the face, which represented air in the parotid duct, of no clinical consequence, according to the radiologist.) The patient was admitted to ICU. Because of the beta-sara that she was taking, Glucagon 2 mg was given, with no improvement in the heart rate. A TSH was added to her labs and came back >100 The free T4 was undetectable. The patient was given levothyroxine 300 mcg IV. Overnight that night, the patient became more awake, following commands. The patient remained bradycardic with heart rate as low as 45, dopamine had to be increased to 20ug. By the next morning (yesterday morning), Mrs Sharif was fully A&O with entirely normal mental status. Heart rate was still in the 40s however, and she still needed dopamine 10 mcg. We discussed her situation with Dr. Nunez from Endocrine. Management plan was for 100ug thyroxin daily x 3 days, then 50 ug daily, then eventually switch over to oral thyroid using synthroid, not a generic, and to follow daily free T4 levels for a few days. Also, hydrocortisone supplementation to make sure she doesn?t develop adrenal crisis. Yesterday, HR was still dipping into the 40?s, she was still requiring 5-6 ug Dopamine. In consultation with Dr. Nunez, we added T3, 25ug daily. This morning, she?s out of bed in the chair, fully A&O, looks more animated than I?ve seen her. Thoroughly nontoxic. HR was 70 at Dopamine 2ug, so we turned the Dopamine off at 9am. At 10:30, HR is 65-68, BP is 102/51. Freq PVCs (no change from yesterday, despite potassium supplementation). Breathing easy with Sat 97% on room air. She remains afebrile and normothermic. No JVD sitting up. Chest is CTA. Very soft heart tones, mostly regular. I heard no murmur or gallop. Abdomen benign. No edema. LABORATORY DATA: White count up to 22. BUN/creatinine down to 25/1.7. Alb 2.7. Free T4 this morning 0.81, unchanged from yest. ECHOCARDIOGRAPHY done 06/30: 1. Wall thickness normal 2. LV cavity size is normal, and LV fxn shows RWMA with marked septal hypokinesis, possibly apical dyskinesis, with EF about 40%. 3. RV size and fxn is normal 4. MV normal with trace MR by color ishan. 5. TV normal with 1+ TR by color ishan, with no significant CWD jet. 8. IVC normal sized, about 1.3 cm, with about 50% insp collapse. RVSP is normal. Chest CT yesterday (done bec of hypoxemia): NAPD. IMPRESSION: 1. End stage malignant lymphoma. Spoke with family at length in conference yesterday. We spoke about code status and I indicated that CPR is not meant for patients with cancer and severe disease and people who were naturally in the ending phase of life. They understand the situation and fully agreed to DNR status. They and the patient filled out a MOLST form. 2. Unresponsiveness on admission to the ED. Presumed 2? unintentional opiate OD. Fully resolved. 3. Severe hypothyroidism/myxedema. Family insisted that she was getting her thyroid med, but on close questioning, it?s not at all certain that she was. Nonetheless, she was undoubtedly prescribed generic thyroid medication. Could be that that particular brand had minimal thyroid in it. We are now dosing her IV. 100ug IV today, and tomorrow will cut to 50ug daily thereafter. Checking free T4 level daily for a few days. When she goes home, she should be prescribed Synthroid, not generic thyroid. Also added hydrocortisone to prevent precipitating adrenal crisis. Now getting HC 50 mg tid. I?ll drop that down to 50 mg bid now. 4. Symptomatic bradycardia. Presumably 2? severe hypothyroidism. Resolving with thyroid supplementation. Discussed further w Dr. Jackson today. 5. Hypotension. 2? bradycardia, CMOP, and hypovolemia (by echo). We?ve been giving her IVF, and her renal indices continue to improve. Continue holding Coreg and amlodipine. 6. HONG. Hypovolemia with ? contributing ATN 2? low CO. 7. Hypoxemia. For the first two days, Sat was running about 90% on room air, with basically clear CXR and unremarkable CT scan. Over the day yesterday and last night, she coughed up some sputum and Sat has risen to 97% on room air. She no doubt has chronic underlying lung disease 2? smoking. (She is a long time and current smoker.) No further w/u planned. 8. ID: Clinically, she's not septic, nor does she have pneumonia or bronchitis. Peritoneal fluid analysis was negative. Cultures and BCs negative so far. Leukocytosis is likely 2? steroids. No indication for abx. Time: 50 min. ([id number]) Stable for transfer to [facility] [place]. Will sign out to hospitalists. Critical Care Time (minutes): 0 Physical Exam Vital Signs: Vital Signs: Last Vital Signs Temp 97.9 F 07/02/20 10:01 Pulse 77 07/02/20 10:43 Resp 21 H 07/02/20 10:01 BP 99/73 07/02/20 10:43 Pulse Ox 97 07/02/20 10:43 Body Mass Index 19.5 Objective Data Labs CBC & Chem 7: 07/02/20 05:20 07/02/20 05:20 Labs: Laboratory Results - last 24 hr 06/29/20 07/01/20 07/02/20 23:12 05:28 05:20 WBC RBC Hgb Hct MCV MCH MCHC RDW Plt Count MPV Immature Gran % (Auto) Neut % (Auto) Lymph % (Auto) [place] % (Auto) Eos % (Auto) Baso % (Auto) Lymph # (Auto) [place] # (Auto) Eos # (Auto) Baso # (Auto) Abs Immat Gran (auto) Absolute Neuts (auto) Absolute Nucleated RBC Nucleated RBC % (auto) Sodium 138 Potassium 3.9 Chloride 104 Carbon Dioxide 27 Anion Gap 11 L BUN 25 H Creatinine 1.73 H Estim Creat Clear Calc 21.0 Estimated GFR 29 Random Glucose 127 H Calcium 8.4 Magnesium 2.7 H Total Bilirubin 0.3 AST 27 D ALT 13 Alkaline Phosphatase 86 D Total Protein 5.3 L Albumin 2.7 L Free T4 0.81 Free T3 <0.5 L 07/02/20 05:20 WBC 22.5 H RBC 4.19 L Hgb 11.6 L Hct 34.5 L MCV 82.3 MCH 27.7 MCHC 33.6 RDW 18.1 H Plt Count 119 L MPV 9.2 L Immature Gran % (Auto) 0.8 H Neut % (Auto) 87.7 H Lymph % (Auto) 9.1 L [place] % (Auto) 2.3 Eos % (Auto) 0.0 Baso % (Auto) 0.1 Lymph # (Auto) 2.1 [place] # (Auto) 0.5 Eos # (Auto) 0.0 Baso # (Auto) 0.0 Abs Immat Gran (auto) 0.19 H Absolute Neuts (auto) 19.7 H Absolute Nucleated RBC 0.000 Nucleated RBC % (auto) 0.0 Sodium Potassium Chloride Carbon Dioxide Anion Gap BUN Creatinine Estim Creat Clear Calc Estimated GFR Random Glucose Calcium Magnesium Total Bilirubin AST ALT Alkaline Phosphatase Total Protein Albumin Free T4 Free T3 Microbiology Microbiology Results: Microbiology 06/29/20 21:50 Peritoneal Fluid Gram Stain - Final 06/29/20 21:50 Peritoneal Fluid Routine Culture - Final No growth after 2 days 06/29/20 21:50 Peritoneal Fluid Anaerobic Culture - Preliminary No growth to date. 06/29/20 12:00 Blood - Venous Blood Culture - Preliminary No growth after 48 hours. 06/29/20 12:00 Blood - Venous Blood Culture - Preliminary No growth after 48 hours.
--- NOTE | 2020-07-02 19:39 | PC.NURSE ---
Patient up to unit around 1700. No pain reported at this time. F/C removed this AM, due to void; bladder scanned with 218 mL present. Hospitalist notified, waiting orders.
[2020-07-03] VITALS (7 sets, daily range): BP systolic 128–174; BP diastolic 71–82; PULSE 61–75; RESP 18–20; TEMP 36.3–37; O2SAT 96–99; BMI 20.2
[2020-07-03] MEDS: Dextrose 5 % and Lactated Ring 1,000 ML 50 ML IVCONT (02:15)
[2020-07-03 06:15] LABS: MANUAL DIFF FLAG NO
[2020-07-03 06:41] LABS: Basophils Percent Auto 0.1 % (0-2); Eosinophils Percent Auto 0.1 % (0-4); Hematocrit 37.2 % (37-47); Hemoglobin 12.3 g/dl (12.0-16.0); Imm Gran Abs Auto 0.16 X10*3/uL (0.00-0.03); Imm Gran Pct Auto 0.9 % (0.0-0.4); Lymphocytes Absolute Auto 2.2 X10*3/uL (1.2-4.9); Lymphocytes Percent Auto 11.8 % (20-40); Mean Corpuscular HGB Conc 33.1 g/dl (31.0-35.0); Mean Corpuscular Hemoglobin 27.6 pg (27.0-33.0); Mean Corpuscular Volume 83.4 fL (80-98); Mean Platelet Volume 10.2 fL (9.4-12.3); Monocytes Absolute Auto 0.5 X10*3/uL (0.1-1.2); Monocytes Percent Auto 2.8 % (2-11); Neutrophils Absolute Auto 15.8 X10*3/uL (2.0-8.3); Neutrophils Percent Auto 84.3 % (45-73); Platelet Count 102 X10*3/uL (160-400); Red Blood Count 4.46 X10*6/uL (4.20-5.50); Red Cell Distribution Width 18.5 % (11.0-16.0); White Blood Count 18.7 X10*3/uL (4.8-10.8)
[2020-07-03] MEDS: Levothyroxine Sodium 100 MCG/5 ML VIAL 50 MCG IVPUSH (06:47)
[2020-07-03 06:57] LABS: Anion Gap 11 (12-20); Blood Urea Nitrogen 27 mg/dL (9-16); Calcium 8.6 mg/dL (8.4-10.2); Carbon Dioxide 27 mmol/L (22-29); Chloride 104 mmol/L (96-108); Creatinine Clr Calc Pharmacy 27.5; Estimated Glomerular Filt Rate 34; Glucose Random 101 mg/dL (60-115); Potassium 4.3 mmol/L (3.3-5.1); Sodium 138 mmol/L (135-145)
[2020-07-03 07:13] LABS: Free T4 (Free Thyroxine) 0.86 ng/dL (0.71-1.85)
--- NOTE | 2020-07-03 07:38 | HO.PM.IMPN ---
Subjective Subjective Date of Service: 07/04/20 Interval History: hypothyroidism Review of Systems patient says has some gaseous sensation, she had bowel movement and seems to be significantly better afterwards. She denies any chest pain or shortness of breath or abdominal pain or fever chills Physical Exam Vital Signs: Vital Signs: Last Vital Signs Temp 98.2 F 07/03/20 07:21 Pulse 61 07/03/20 07:21 Resp 20 07/03/20 07:21 BP 170/78 H 07/03/20 07:21 Pulse Ox 99 07/03/20 07:21 Body Mass Index 20.2 physical exam: Constitutional:not in acute distress. Cvs: rrr, [id number] , no murmur res: clear to auscultation ,no rhonchii or wheezing abd: no rebound or guarding ,nt, bs present. ext pulses present , no cyanosis neuro: axo3 , nonfocal. Objective Data Current Medications Generic Name Dose Route Start Last Admin Trade Name Freq PRN Reason Stop Dose Admin Heparin Sodium (Porcine) 5,000 unit 06/30/20 10:00 07/02/20 22:10 Heparin Sodium,Porcine 5,000 Unit/Ml Vial SUBCUT 5,000 unit Q12H PAULIE Administration Hydrocortisone Sodium Succinate 50 mg 07/02/20 21:00 07/02/20 22:10 Hydrocortisone Sod Succ/Pf 100 Mg Vial IVPUSH 50 mg BID PAULIE Administration Dextrose/Lactated Ringer's 1,000 mls @ 50 mls/hr 06/30/20 15:45 07/03/20 02:15 D5lr IVCONT 50 mls/hr .Q20H PAULIE Administration Levothyroxine Sodium 50 mcg 07/03/20 06:26 07/03/20 06:47 Levothyroxine Sodium 100 Mcg/5 Ml Vial IVPUSH 50 mcg DAILY@0600 PAULIE Administration Liothyronine Sodium 25 mcg 07/01/20 14:45 07/02/20 07:27 Liothyronine Sodium 25 Mcg Tablet PO 25 mcg DAILY PAULIE Administration Labs CBC & Chem 7: 07/03/20 05:55 07/03/20 05:55 Microbiology Microbiology Results: Microbiology 06/29/20 21:50 Peritoneal Fluid Gram Stain - Final 06/29/20 21:50 Peritoneal Fluid Routine Culture - Final No growth after 2 days 06/29/20 21:50 Peritoneal Fluid Anaerobic Culture - Preliminary No growth to date. 06/29/20 12:00 Blood - Venous Blood Culture - Preliminary No growth after 48 hours. 06/29/20 12:00 Blood - Venous Blood Culture - Preliminary No growth after 48 hours. 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 1. End stage malignant lymphoma. patient is on palliative care currently as per chart review. 2. Unresponsiveness on admission to the ED. Presumed 2? unintentional opiate OD. will add care team eval 3. Severe hypothyroidism/myxedema. patient was given IV levothyroxine, also steroids: symptom her symptoms are slowly improving. Also added hydrocortisone to prevent precipitating adrenal crisis. will taper steroids to 25 mg IV b.i.d.. 4. Symptomatic bradycardia: Presumably 2? severe hypothyroidism. Resolving with thyroid supplementation. Cardio following 5. Hypotension. 2? bradycardia, CMOP, and hypovolemia (by echo). improved with IV hydration, holding blood pressure medications, Cardiology recommended start hydralazine , started hydralazine 25 mg b.i.d. 6. HONG. Hypovolemia with ? contributing ATN 2? low CO. seems slowly improving. 7. leukocytosis: Discussed with ICU and review documentation: Seems to be improving, UA negative, chest CT- has some bronchial thickening but patient denies any cough or phlegm no fevers blood culture and peritoneal culture negative- prelim Leukocytosis was thought probably reactive secondary to steroid use. If she would was any new symptoms then will need further workup. will continue to monitor CBC.
--- NOTE | 2020-07-03 07:58 | PC.NURSE ---
[id number]; Patient's bee was removed 07/02 sometime in the morning. Patient has not voided and was bladder scanned previous shift at 1800 for 218 mls. This RN bladder scanned patient for 344 mls at 1945. Patient reported no urge to void. Dr. Knight made aware. Order for bee catheter. Bee catheter inserted, 300 yellow urine drained right away. Bee patent. This morning around 0630, patient complaining of pressure, feeling of fullness. Bee catheter in place, bladder scanned patient which showed [address] Knight notified, per md, remove bee and reinsert another bee. Bee catheter removed at 0650, with 100 mls yellow urine in bee bag, awaiting orders for new bee placement. Next shift RN made aware.
--- NOTE | 2020-07-03 11:06 | P.PNCA_ITS ---
Subjective Subjective Date of Service: 07/03/20 Principal diagnosis: Bradycardia, low blood pressure Interval history: Patient has no cardiac symptoms. Remains in sinus rhythm, while observing the monitor she did not have any significant PVC. She is hypertensive this morning. No chest pain, lightheadedness, syncope. Review of Systems Constitutional: Reports no additional constitutional complaints Cardiovascular: Reports no additional cardiovascular complaints Respiratory: Reports no additional respiratory complaints Reports system reviewed and no additional complaints, except as documented Physical Exam Vital Signs: Last Vital Signs Temp 98.2 F 07/03/20 07:21 Pulse 61 07/03/20 07:21 Resp 20 07/03/20 07:21 BP 170/78 H 07/03/20 07:21 Pulse Ox 99 07/03/20 07:21 Body Mass Index 20.2 Const General: cooperative, comfortable, no acute distress, alert and awake Nutritional Appearance: thin Neck Neck: Yes trachea midline, Yes supple and Yes no JVD Resp Effort & Inspection: normal respiratory effort Auscultation: diminished lung sounds Cardio Jugular venous distension: no JVD Palpation: normal PMI Rate: regular rate Rhythm: regular rhythm Heart sounds: S1 normal heart sound present and S2 normal heart sound present Neuro General: no focal motor deficits Results Labs and Meds Result diagrams: 07/03/20 05:55 07/03/20 05:55 Lab results: Laboratory Results - last 24 hr 07/03/20 07/03/20 05:55 05:55 WBC 18.7 H RBC 4.46 Hgb 12.3 Hct 37.2 MCV 83.4 MCH 27.6 MCHC 33.1 RDW 18.5 H Plt Count 102 L MPV 10.2 Immature Gran % (Auto) 0.9 H Neut % (Auto) 84.3 H Lymph % (Auto) 11.8 L Finney % (Auto) 2.8 Eos % (Auto) 0.1 Baso % (Auto) 0.1 Lymph # (Auto) 2.2 Finney # (Auto) 0.5 Eos # (Auto) 0.0 Baso # (Auto) 0.0 Abs Immat Gran (auto) 0.16 H Absolute Neuts (auto) 15.8 H Absolute Nucleated RBC 0.000 Nucleated RBC % (auto) 0.0 Sodium 138 Potassium 4.3 Chloride 104 Carbon Dioxide 27 Anion Gap 11 L BUN 27 H Creatinine 1.49 H Estim Creat Clear Calc 27.5 Estimated GFR 34 Random Glucose 101 Calcium 8.6 Free T4 0.86 Progress Note: A&P Assessment and plan (1) Bradycardia: Status: Acute Assessment and Plan: Bradycardia secondary to severe hypothyroidism. This has not resolved. Continue thyroid replacement therapy. No need for pacing at this point time. Avoid rate lowering medications at this point time is heart rate remains in the 60s. Eventually she was on outpatient on a carvedilol therapy and once heart rate improves as outpatient can slowly reintroduce her beta-sara therapy for ischemic cardiomyopathy. (2) Low blood pressure: Status: Acute Assessment and Plan: Low blood pressure which has resolved after IV hydration as well as improvement in bradycardia. Currently patient hypertensive. Reintroduce her a ntihypertensives, avoid carvedilol therapy at this point time. 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 Will sign of the case. Thank you for allowing us to partake in the care Fall Risk Details Current Medications: Current Medications Generic Name Dose Route Start Last Admin Trade Name Kurtisq PRN Reason Stop Dose Admin Heparin Sodium (Porcine) 5,000 unit 06/30/20 10:00 07/02/20 22:10 Heparin Sodium,Porcine 5,000 Unit/Ml Vial SUBCUT 5,000 unit Q12H PAULIE Administration Hydrocortisone Sodium Succinate 50 mg 07/02/20 21:00 07/02/20 22:10 Hydrocortisone Sod Succ/Pf 100 Mg Vial IVPUSH 50 mg BID PAULIE Administration Dextrose/Lactated Ringer's 1,000 mls @ 50 mls/hr 06/30/20 15:45 07/03/20 02:15 D5lr IVCONT 50 mls/hr .Q20H PAULIE Administration Levothyroxine Sodium 50 mcg 07/03/20 06:26 07/03/20 06:47 Levothyroxine Sodium 100 Mcg/5 Ml Vial IVPUSH 50 mcg DAILY@0600 PAULIE Administration Liothyronine Sodium 25 mcg 07/01/20 14:45 07/02/20 07:27 Liothyronine Sodium 25 Mcg Tablet PO 25 mcg DAILY PAULIE Administration Time Spent With Patient Time: Total time spent is greater than 50% in coordination of care (as documented) at patient's floor/unit and/or counseling patient: Time with patient: 15 - 24 minutes Procedures Date of Service Date of Service: 07/03/20
[2020-07-03] MEDS: Heparin Sodium,Porcine 5,000 UNIT/ML VIAL 5000 UNIT SUBCUT ×2 (11:23→21:58)
[2020-07-03] MEDS: Hydrocortisone Sod Succ/PF 100 MG VIAL 50 MG IVPUSH (11:24)
[2020-07-03] MEDS: Liothyronine Sodium 25 MCG TABLET PO (11:24)
--- NOTE | 2020-07-03 11:28 | MHC.CLN ---
F/U PO INTAKE 50% X 1 MEAL DIET RX: REGULAR-APPROPRIATE PT PREFERS SMALL PORTIONS LIKES JELLO AND SOUPS RECEIVING ENSURE TID TO PROVIDE INCREASED KCALS SUPPLEMENT TO PROVIDE 1050KCALS, 60G PROTEIN MONITOR PO INTAKE CLOSELY
--- NOTE | 2020-07-03 12:10 | MHC.CM.PN ---
per rounds today pt will be here over the weekend plan remains home with family and resumption of hvns
[2020-07-03] MEDS: Omeprazole 20 MG CAPSULE.DR PO (12:51)
[2020-07-03] MEDS: Lactated Ringers 500 ML 80 ML IV (20:05)
[2020-07-03] MEDS: hydrALAZINE HCl 25 MG TABLET PO (21:58)
[2020-07-03] MEDS: Hydrocortisone Sod Succ/PF 100 MG VIAL 25 MG IVPUSH (21:58)
[2020-07-04] VITALS (7 sets, daily range): BP systolic 112–175; BP diastolic 53–78; PULSE 64–76; RESP 18–20; TEMP 35.9–37.2; O2SAT 95–98; BMI 22.6
[2020-07-04] MEDS: Levothyroxine Sodium 100 MCG/5 ML VIAL 50 MCG IVPUSH (07:19)
[2020-07-04] MEDS: Omeprazole 20 MG CAPSULE.DR PO (07:19)
--- NOTE | 2020-07-04 08:22 | HO.PM.IMPN ---
Subjective Subjective Date of Service: 07/04/20 Interval History: Hypothyroidism Review of Systems Patient seems to be feeling slowly better, denies any chest pain or shortness of breath or abdominal pain or fever or chills or nausea or vomiting. Her temperatures are also seems to be fine regular range. Not bradycardic Physical Exam Vital Signs: Vital Signs: Last Vital Signs Temp 98.9 F 07/04/20 07:56 Pulse 64 07/04/20 07:56 Resp 19 07/04/20 07:56 BP 175/78 H 07/04/20 07:56 Pulse Ox 97 07/04/20 07:56 Body Mass Index 22.6 Physical exam: Constitutional:not in acute distress. Cvs: rrr, [id number] , no murmur res: clear to auscultation ,no rhonchii or wheezing abd: no rebound or guarding ,nt, bs present. ext pulses present , no cyanosis neuro: axo3 , nonfocal. Objective Data Current Medications Generic Name Dose Route Start Last Admin Trade Name Freq PRN Reason Stop Dose Admin Heparin Sodium (Porcine) 5,000 unit 06/30/20 10:00 07/03/20 21:58 Heparin Sodium,Porcine 5,000 Unit/Ml Vial SUBCUT 5,000 unit Q12H PAULIE Administration Hydralazine HCl 25 mg 07/03/20 21:00 07/03/20 21:58 Hydralazine Hcl 25 Mg Tablet PO 25 mg BID PAULIE Administration Protocol Hydrocortisone Sodium Succinate 25 mg 07/04/20 09:00 Hydrocortisone Sod Succ/Pf 100 Mg Vial IVPUSH DAILY PAULIE Levothyroxine Sodium 50 mcg 07/03/20 06:26 07/04/20 07:19 Levothyroxine Sodium 100 Mcg/5 Ml Vial IVPUSH 50 mcg DAILY@0600 PAULIE Administration Liothyronine Sodium 25 mcg 07/01/20 14:45 07/03/20 11:24 Liothyronine Sodium 25 Mcg Tablet PO 25 mcg DAILY PAULIE Administration Omeprazole 20 mg 07/03/20 11:45 07/04/20 07:19 Omeprazole 20 Mg Capsule. PO 20 mg DAILY@0630 PAULIE Administration Labs CBC & Chem 7: 07/03/20 05:55 07/03/20 05:55 Microbiology Microbiology Results: Microbiology 06/29/20 21:50 Peritoneal Fluid Gram Stain - Final 06/29/20 21:50 Peritoneal Fluid Routine Culture - Final No growth after 2 days 06/29/20 21:50 Peritoneal Fluid Anaerobic Culture - Preliminary No growth to date. 06/29/20 12:00 Blood - Venous Blood Culture - Preliminary No growth after 48 hours. 06/29/20 12:00 Blood - Venous Blood Culture - Preliminary No growth after 48 hours. Assessment and Plan (1) Bradycardia: Status: Acute Assessment and Plan: hospital day 5 74-year-old female with h/o B-cell lymphoma, hypertension, hypothyroid, COPD, liver cirrhosis w malignant ascites, coronary artery disease w h/o CABG x 4, CMOP with CHF w EF 20-25% (per cardiology note of 12/25/19), PVD w h/o CEA. 1. End stage malignant lymphoma. patient is on palliative care currently as per chart review. follows up with Dr garcia 2. Unresponsiveness on admission to the ED. Presumed 2? unintentional opiate OD. will add care team eval 3. Severe hypothyroidism/myxedema. patient was given IV levothyroxine, also steroids: symptom her symptoms are slowly improving. Also added hydrocortisone to prevent precipitating adrenal crisis. will taper steroids to 25 mg IV daily for today -need to stop tomorrow. A patient stays stable after stopping hydrocortisone for 24 hours blood pressure and temperature hurley, then we can plan to switch her on p.o. thyroid supplementation Patient's family prefers Synthroid: Discussed with Dr. carrera: Patient is to go home with since thyroid 75 mg daily for 1 week and then switch to 150 daily afterwards. Follow-up with TSH, free t3 and t4 outpatiently 4. Symptomatic bradycardia: Presumably 2? severe hypothyroidism. Resolving with thyroid supplementation. Cardio following 5. Hypotension. 2? bradycardia, CMOP, and hypovolemia (by echo). improved with IV hydration, holding blood pressure medications, Cardiology recommended start hydralazine , started hydralazine 25 mg b.i.d-adjust as needed for blood pressures. 6. HONG. Hypovolemia with ? contributing ATN 2? low CO. seems slowly improving. 7. leukocytosis: Discussed with ICU and review documentation: Seems to be improving, UA negative, chest CT- has some bronchial thickening but patient denies any cough or phlegm no fevers blood culture and peritoneal culture negative- prelim Leukocytosis was thought probably reactive secondary to steroid use. If she would was any new symptoms then will need further workup. will continue to monitor CBC. (2) Hypothyroid: Status: Acute (3) Acute alteration in mental status: Status: Acute
[2020-07-04] MEDS: Heparin Sodium,Porcine 5,000 UNIT/ML VIAL 5000 UNIT SUBCUT ×2 (08:47→21:09)
[2020-07-04] MEDS: hydrALAZINE HCl 25 MG TABLET PO ×2 (08:47→21:08)
[2020-07-04] MEDS: Liothyronine Sodium 25 MCG TABLET PO (08:47)
[2020-07-04] MEDS: Hydrocortisone Sod Succ/PF 100 MG VIAL 25 MG IVPUSH (08:48)
--- NOTE | 2020-07-04 18:27 | PC.NURSE ---
Patient OOB to recliner with 1 assist and walker for majority of the day. Patient drinking more fluids with encouragement.
[2020-07-05] VITALS (8 sets, daily range): BP systolic 139–172; BP diastolic 60–70; PULSE 68–88; RESP 18–20; TEMP 36.4–37; O2SAT 96–98; BMI 22.6
[2020-07-05 05:37] LABS: Hematocrit 33.9 % (37-47); Hemoglobin 11.3 g/dl (12.0-16.0); Mean Corpuscular HGB Conc 33.3 g/dl (31.0-35.0); Mean Corpuscular Hemoglobin 27.6 pg (27.0-33.0); Mean Corpuscular Volume 82.9 fL (80-98); Mean Platelet Volume 9.9 fL (9.4-12.3); Platelet Count 110 X10*3/uL (160-400); Red Blood Count 4.09 X10*6/uL (4.20-5.50); Red Cell Distribution Width 18.6 % (11.0-16.0); White Blood Count 16.3 X10*3/uL (4.8-10.8)
[2020-07-05 05:42] LABS: Anion Gap 12 (12-20); Blood Urea Nitrogen 30 mg/dL (9-16); Calcium 8.4 mg/dL (8.4-10.2); Carbon Dioxide 25 mmol/L (22-29); Chloride 105 mmol/L (96-108); Estimated Glomerular Filt Rate 41; Glucose Random 78 mg/dL (60-115); Potassium 3.7 mmol/L (3.3-5.1); Sodium 138 mmol/L (135-145)
[2020-07-05] MEDS: Levothyroxine Sodium 100 MCG/5 ML VIAL 50 MCG IVPUSH (06:39)
[2020-07-05] MEDS: Omeprazole 20 MG CAPSULE.DR PO (06:39)
[2020-07-05] MEDS: hydrALAZINE HCl 25 MG TABLET PO ×2 (08:22→20:53)
[2020-07-05] MEDS: Heparin Sodium,Porcine 5,000 UNIT/ML VIAL 5000 UNIT SUBCUT ×2 (08:22→20:54)
[2020-07-05] MEDS: Liothyronine Sodium 25 MCG TABLET PO (08:22)
--- NOTE | 2020-07-05 10:12 | MHC.RECOVSUP ---
Recovery Support note: Patient is a 74 year old [place] speaking female who presented to [facility] due to a suspected overdose. Patient was medically admitted. This public relations writer met with patient in to discuss the circumstances that prompted her ED visit. Explained to patient that there was a question as to whether she overtook her medications and that may have contributed to why patient came to the hospital. Patient reported that was not the case. Patient reports she has a lot of family who support her and that she has help managing her medications. Discussed with patient how pain medications can slow her breathing and that if they are taken more than prescribed, it can be very dangerous. Patient reported I know all that. Patient continues to deny that she overtook her medication and reports that she came to the hospital due to a fall. Patient reports that she was able to go up and down the stairs without issue and that she did not feel unsteady. Patient reports that she has a lot of things to take care of at home and that she is eager to return. 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 Patient reports she has family members who come over everyday to support her in whatever she needs. Discussed case with patient's RN.
--- NOTE | 2020-07-05 15:53 | P.PNIM_ITS ---
Subjective Subjective Date of Service: 07/06/20 Interval History: Patient offers no acute complaints, denies pain, requesting to be discharged home. has a peritoneal cathter in place. ROS General no headache, no dizziness no fever chills. CVS no chest pain, no palpitation. Respiratory no cough, no sob Gastrointestinal no nausea, no vomiting, no abdominal pain Physical Exam Vital Signs: Vital Signs: Last Vital Signs Temp 98.6 F 07/05/20 12:00 Pulse 78 07/05/20 12:00 Resp 18 07/05/20 12:00 BP 140/62 H 07/05/20 12:00 Pulse Ox 97 07/05/20 12:00 Body Mass Index 22.6 General resting comfortably in no acute distress. Neck supple no JVD. CVS regular rate rhythm, Respiratory lungs clear to auscultation, no respiratory distress, no wheeze, no rhonchi. Gastrointestinal abdomen soft, mild distention,nontender, bowel sounds audible, no guarding , no rigidity,peritoneal drain in place Extremities no edema. Neuro nonfocal,speech clear. Skin no rash Objective Data Current Medications Generic Name Dose Route Start Last Admin Trade Name Freq PRN Reason Stop Dose Admin Heparin Sodium (Porcine) 5,000 unit 06/30/20 10:00 07/05/20 08:22 Heparin Sodium,Porcine 5,000 Unit/Ml Vial SUBCUT 5,000 unit Q12H PAULIE Administration Hydralazine HCl 25 mg 07/03/20 21:00 07/05/20 08:22 Hydralazine Hcl 25 Mg Tablet PO 25 mg BID PAULIE Administration Protocol Levothyroxine Sodium 50 mcg 07/03/20 06:26 07/05/20 06:39 Levothyroxine Sodium 100 Mcg/5 Ml Vial IVPUSH 50 mcg DAILY@0600 PAULIE Administration Liothyronine Sodium 25 mcg 07/01/20 14:45 07/05/20 08:22 Liothyronine Sodium 25 Mcg Tablet PO 25 mcg DAILY PAULIE Administration Omeprazole 20 mg 07/03/20 11:45 07/05/20 06:39 Omeprazole 20 Mg Capsule. PO 20 mg DAILY@0630 PAULIE Administration Labs CBC & Chem 7: 07/05/20 04:13 07/05/20 04:13 Microbiology Microbiology Results: Microbiology 06/29/20 21:50 Peritoneal Fluid Gram Stain - Final 06/29/20 21:50 Peritoneal Fluid Routine Culture - Final No growth after 2 days 06/29/20 21:50 Peritoneal Fluid Anaerobic Culture - Final NO GROWTH AFTER 5 DAYS 06/29/20 12:00 Blood - Venous Blood Culture - Final No growth after 5 days. 06/29/20 12:00 Blood - Venous Blood Culture - Final No growth after 5 days. Assessment and Plan (1) Hypothyroid: Status: Acute (2) Low blood pressure: Status: Acute (3) Acute alteration in mental status: Status: Acute (4) Opiate or related narcotic overdose: Status: Acute (5) Acute hypotension: Status: Acute (6) Bradycardia: Status: Acute (7) Cirrhosis: Status: Acute (8) PVD (peripheral vascular disease): Status: Acute (9) Lymphoma: Status: Chronic (10) Cardiomyopathy: Status: Acute Assessment and Plan: 74-year-old female with h/o B-cell lymphoma, hypertension, hypothyroid, COPD, liver cirrhosis w malignant ascites, coronary artery disease w h/o CABG x 4, CMOP with CHF w EF 20-25% (per cardiology note of 12/25/19), PVD w h/o CEA. 1. End stage malignant lymphoma. on palliative care under Dr. Ferreira, has a peritoneal catheter in place for recurrent ascites continue to drain 3 times per week 2. Unresponsiveness on admission to the ED. Presumed 2? unintentional opiate OD. Now awake alert at baseline is on chronic narcotics for pain. pt not in pain will dc ling acting morphine upon dc 3. Severe hypothyroidism/myxedema. patient was given IV levothyroxine, and steroids to prevent precipitating adrenal crisis now of steroid steroids blood pressure and pulse are stable Currently on IV Synthroid 50 mcg and liothyronine 25 microgram from endocrinology recommend synthroid 75 mg daily for 1 week and then switch to 50 mcg daily Follow-up with TSH, free t3 and t4 outpatiently in 1 -2 weeks 4. Symptomatic bradycardia: Presumably 2? severe hypothyroidism now improved. Coreg is on hold will resume low dose for ischemic cardiomyopathy. 5. Hypotension. 2? bradycardia, CMOP, and hypovolemia (by echo). improved with IV hydration, patient currently on hydralazine 25 mg b.i.d. was on amlodipine, Coreg and losartan at home BP noted to be elevated will introduce low-dose beta-sara while being monitored 6. HONG. Hypovolemia with ? contributing ATN 2? low CO. HONG resolved 7.Leukocytosis: Likely related to steroids no source of infection found, Ua ne gative, chest CT showed bronchial thickening but patient denies any cough or phlegm,no fevers blood culture and peritoneal culture negative, WBC trending down no antibiotics warranted.
--- NOTE | 2020-07-05 18:32 | PC.NURSE ---
Patient OOB to recliner for majority of the day. Patient had small formed BM. Peritoneal drain drained by nursing ward service supervisor per verbal order from Dr Fagan.
[2020-07-05 20:48] LABS: Glucose, Whole Blood 98 mg/dL (60-115)
[2020-07-05] MEDS: carvediloL 3.125 MG TABLET PO (20:54)
--- NOTE | 2020-07-06 03:41 | PC.NURSE ---
Patient's peritoneal cath drained for 275mL of clear yellow fluid at 1999.
[2020-07-06 04:00] VITALS: BP 136/81; PULSE 87; RESP 20; TEMP 36.6; O2SAT 96
[2020-07-06 05:37] VITALS: BMI 22.4
[2020-07-06] MEDS: Omeprazole 20 MG CAPSULE.DR PO (05:40)
[2020-07-06] MEDS: Levothyroxine Sodium 100 MCG/5 ML VIAL 50 MCG IVPUSH (05:40)
[2020-07-06 07:14] VITALS: BP 143/65; PULSE 74; RESP 18; TEMP 36.9; O2SAT 95
[2020-07-06 09:18] VITALS: BP 143/65; PULSE 74
[2020-07-06] MEDS: Liothyronine Sodium 25 MCG TABLET PO (09:18)
[2020-07-06] MEDS: carvediloL 3.125 MG TABLET PO (09:18)
[2020-07-06] MEDS: Heparin Sodium,Porcine 5,000 UNIT/ML VIAL 5000 UNIT SUBCUT (09:18)
[2020-07-06] MEDS: hydrALAZINE HCl 25 MG TABLET PO (09:18)
[2020-07-06 11:37] VITALS: BP 112/56; PULSE 88; RESP 18; TEMP 36.6; O2SAT 98
--- NOTE | 2020-07-06 11:55 | MHC.CLN ---
F/U PO INTAKE SLIGHTLY IMPROVED DIET RX: REGULAR-APPROPRIATE RECEIVING ENSURE TID TO PROVIDE INCREASED KCALS SUPPLEMENT TO PROVIDE 1050KCALS, 60G PROTEIN WT TRENDING UP MONITOR PO INTAKE CLOSELY
--- NOTE | 2020-07-06 14:30 | P.DS_ITS ---
DS: Providers Provider Date of Service: 07/06/20 Date of admission: 06/29/20 16:04 Primary care physician: Unknown Physician Consults: 07/01/20 13:38 Consult to Cardiology Routine Consulting Provider: Leonard Jackson Reason for consultation: Symptomatic bradycardia. Has provider been notified: Yes 07/04/20 16:34 Consult to Care Team Routine Comment: Reason for consultation: opoid use DS: Diagnosis Discharge Diagnosis (1) Hypothyroid: Status: Acute (2) Low blood pressure: Status: Acute (3) Acute alteration in mental status: Status: Acute (4) Opiate or related narcotic overdose: Status: Acute (5) Acute hypotension: Status: Acute (6) Bradycardia: Status: Acute (7) Cirrhosis: Status: Acute (8) PVD (peripheral vascular disease): Status: Acute (9) Lymphoma: Status: Chronic (10) Cardiomyopathy: Status: Acute DS: Medications Discharge Medications Home Medications: Home Medications Medication Instructions Recorded Confirmed Combivent Respimat 1 puff INHALATION QID PRN 11/27/19 06/29/20 Incruse Ellipta 1 puff INHALATION DAILY 11/27/19 06/29/20 Previous Rx's Medication Instructions Recorded oxycodone 5 mg PO Q8H PRN #60 cap 06/26/20 carvedilol 3.125 mg PO BID #60 tab 07/06/20 hydralazine 25 mg PO BID #60 tab 07/06/20 levothyroxine [Synthroid] 150 mcg PO DAILY #30 tab NS 07/06/20 omeprazole 20 mg PO DAILY@0630 #30 cap 07/06/20 DS: Summary Hospital Course Hospital Course: History of presenting illness bradycardia and hypotension. 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 The patient takes oxycodone and morphine for chronic pain control. The patient lives in an apartment and her daughter lives with her and takes care of her. The granddaughter (the daughter?s daughter) is the HCP and manages the patient?s medications. According to an oncology note on 03/11/[address] Ferreira, the patient was found to have liver cirrhosis, abdominal adenopathy and ascites in August 2018. CT abdomen at [facility] demonstrated ascites, bulky peripancreatic and retroperitoneal lymphadenopathy, liver cirrhosis with evidence of portal hypertension, mild splenomegaly and perisplenic and perihepatic gastric varices. Paracentesis performed 08/22/2018 was negative for carcinoma, but showed atypical CD20 positive B cells which lacked surface light chain expression; was also negative for CD5 and CD10. Was suggestive of B-cell lymphoproliferative disorder. Lymph node biopsy from left abdomen performed 11/01/2018 detected clonal CD20 positive B-cell population that expresses CD23 and dim surface lambda light chain, negative for CD5 and CD10. Differential diagnosis was marginal zone lymphoma and lymphoplasmacytic lymphoma. PET scan performed 11/15/2018 showed intensely FDG avid retroperitoneal, periportal and peripancreatic lymphadenopathy, FDG avid abdominal soft tissue m asses intimately associated with loops of bowel, FDG avid lymphadenopathy in the mediastinum and cervical lymph nodes, as well as bilateral parotid lesions which were intensely FDG avid. Single FDG avid osseous lesion in the right iliac bone showed no corresponding CT findings. 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 She was given rituximab weekly x4. Unfortunately she developed a severe reaction to rituximab PET scan 12/31/2019 showed progression of the lymphoma with increase in FDG avidity and size of extensive lymphadenopathy in neck, chest and abdomen. In Dr. Ferreira?s note of Mar 11, she says that the patient had decided to not receive any further treatment and wanted palliative/hospice care. Her cardiac health was also poor. Since then she?s had multiple therapeutic paracenteses. She had a tunneled paracentesis catheter placed by IR last month. According to the Granddaughter, the patient declined hospice care and is now receiving palliative care. HISTORY OF PRESENT ILLNESS: History is from the granddaughter who told me that last night the patient was a very confused, made no sense at all on the telephone. This morning after the patient was given her medications, including an oxycodone, she became unresponsive. Called 911. On arrival at the scene, the patient was unresponsive. Gluc was 119, patient was maintaining breathing and airway, patient initially was bradycardic and hypotensive 80/40. On arrival to the emergency department, the patient was a cachectic 74 year old female not responding to verbal or painful stimuli. SpO2 was reportedly 98% on room air. HR 81, BP 102/43. The patient was given 2 mg of Narcan IV, then patient became responsive. But her HR dropped into 40?s, BP into 70?s. Dr. Lemus called me, I rec atropine 1mg then dopamine if nec. After atropine 1mg, HR went up the 60?s, but BP still 70?s-80?s. Dopamine was started, HR came up to 70?s, BP to the 130s. Labs in the ED were notable for white count of 12.3 (normally ranges 6-9), hemoglobin of 11.9, platelet count of [id number]. BUN and creatinine 32/3.8, potassium 3.5, bicarb 27, glucose 101, normal LFTs, ammonia 52, albumin 3.3, Lactic acid 1.3. Screening u/a negative. Brain CT was unremarkable. The CT was read as showing air in the soft tissues of the left side of the face. I reviewed the CT with one of the radiologist from [facility] and he assured me that the air was in the parotid duct, which is of no consequence. Hospital course 74-year-old female with h/o B-cell lymphoma, hypertension, hypothyroid, COPD, liver cirrhosis w malignant ascites, coronary artery disease w h/o CABG x 4, CMOP with CHF w EF 20-25% (per cardiology note of 12/25/19), PVD w h/o CEA admitted due to unresponsiveness and noted to have hypotension and bradycardia. Unresponsiveness on admission, felt to be related to unintentional opiate OD with underlying severe hypothyroidism, patient initially treated with Narcan, IV fluids as well as IV levothyroxine And steroids to prevent adrenal crisis, subsequently steroids tapered off, hypotension and bradycardia resolved since all antihypertensive medications were held including Coreg Now patient hemodynamically stable awake alert, therefore being discharged home on Synthroid 75 mcg daily for 1 week followed by 150 mcg Synthroid daily patient has been given instructions to take Synthroid at 06:00 am and to avoid milk products multivitamin, iron, calcium, Prilosec ,Zantac at least 4 hours before or after use of synthroid , patient has also been instructed to avoid scheduled morphine sulfate twice daily since patient is not in acute pain at present she has been recommended to use oxycodone as needed. Symptomatic bradycardia: Presumably 2? severe hypothyroidism now improved,low dose coreg resumed advice to f/u with cardiology. Hypertension patient noted to have hypotension on admission therefore all home medications were held including losartan 25 mg, Coreg 12.5 mg twice daily and Norvasc 2.5 mg Since blood pressure improved patient is being discharged home on Coreg 3.125 mg b.i.d. and hydralazine 25 mg b.i.d. patient has been recommended to follow-up with cardiology in 1 week HONG likely due to hypotension resolved, losartan was held can resume if BP allows as outpatient for ischemic cardiomyopathy. Leukocytosis: Likely related to steroids, no source of infection found, Ua negative, chest CT showed bronchial thickening but patient denied cough or phlegm,no fevers blood culture and peritoneal culture negative, WBC trending down, did not require treatment with antibiotics. End-stage malignant lymphoma recommend to continue drainage from peritoneal cat heter twice weekly and outpatient follow-up with Dr. Ferreira. Time Spent with Patient Time attestation: Total time spent providing and/or coordinating discharge services: Discharge coordination time: Greater than 30 minutes Quality: Stroke Does the patient have a stroke diagnosis?: No Physical Exam Vital Signs: Vital Signs: Last Vital Signs Temp 97.8 F 07/06/20 11:37 Pulse 88 07/06/20 11:37 Resp 18 07/06/20 11:37 BP 112/56 L 07/06/20 11:37 Pulse Ox 98 07/06/20 11:37 Body Mass Index 22.4 General resting comfortably in no acute distress. Neck supple no JVD. CVS regular rate rhythm, Respiratory lungs clear to auscultation, no respiratory distress, no wheeze, no rhonchi. Gastrointestinal abdomen soft, mild distention,nontender, bowel sounds audible, no guarding , no rigidity,peritoneal drain in place Extremities no edema. Neuro nonfocal,speech clear. Skin no rash DS: Data Data Completed and Pending Completed studies during hospitalization [Text1]: Procedures Extraction of Right Neck Lymphatic, Percutaneous Approach, Diagnostic (12/10/19) Labs on day of discharge: Laboratory Results - last 24 hr 07/05/20 20:43 POC Glucose 98 Discharge Plan Discharge Patient Disposition: Home Health Service Discharge Diagnosis: Severe hypothyroidism/myxedema Unresponsive episode Symptomatic bradycardia Hypotension HONG Leukocytosis Referrals: Physician,Unknown [Primary Care Provider] - 1 Week Discharge Medications: New hydralazine 25 mg Tablet 25 mg PO BID Qty: 60 RF: 0 carvedilol 3.125 mg Tablet 3.125 mg PO BID Qty: 60 RF: 0 omeprazole 20 mg Capsule,Delayed Release(Dr/Ec) 20 mg PO DAILY@0630 Qty: 30 RF: 0 levothyroxine [Synthroid] 150 mcg tablet 150 mcg PO DAILY Qty: 30 RF: 0 Continued Incruse Ellipta 62.5 mcg/actuation blister with device 1 puff inhalation DAILY RF: 0 Combivent Respimat 20-100 mcg/actuation mist 1 puff inhalation QID PRN (Reason: Shortness Of Breath) RF: 0 oxycodone 5 mg Capsule 5 mg PO Q8H PRN (Reason: Pain) Qty: 60 RF: 0 Discontinued carvedilol 12.5 mg tablet 1 tab PO BID RF: 0 morphine 30 mg tablet extended release 1 tab PO Q12H PRN (Reason: Pain (Scale Score 7-10)) RF: 0 amlodipine 2.5 mg tablet 1 tab PO DAILY RF: 0 levothyroxine 150 mcg tablet 1 tab PO DAILY RF: 0 losartan 25 mg tablet 1 tab PO DAILY RF: 0 Discharge Orders: Discharge Order (Routine); Ordered 07/06/20 Ordered By: Aj Fagan Diet: regular diet Activity on Discharge: As tolerated Stand Alone Forms: Patient Portal Discharge page Care Plan Goals: Hypothyroidism/hypotension on narcotics Takes Synthroid 75 mcg daily for 1 week and then take 150 mcg 1 tablet daily, takes Synthroid at 06:00 1 hour before breakfast or 4 hours from any of the following tablets multivitamin, iron, Prilosec Zantac, Tums or alternatively can take Synthroid 3 hours after dinner at bedtime Health Concerns: stop taking morphine tablets twice daily since not in pain present, can take as needed pain medication, you did not require any pain medications while in hospital Plan of Treatment: Outpatient follow-up with Dr. Ferreira and primary care physician, can be referred to endocrinology Dr. Nunez Outpatient follow-up with Cardiology Dr. Vazquez in 1 week Assessment: Per discharge summary
--- NOTE | 2020-07-06 14:52 | MHC.CM.PN ---
spoke with pts daughter who is upoc[employer]xe to [employer] pt hvns notified of dc
[2020-09-22 08:51] LABS: VBG HCO3 27 mmol/L (22-26); VBG pCO2 39 mmHg; VBG pH 7.44 (7.32-7.43); VBG pO2 64 mmHg
== END 2020-07-06 15:30 | disposition home health service (06) | DRG 917 ==
LOC: HO.ED 15:34 → HO.EDOVER 16:05 → HO.ICU 18:38 → HO.IMC 07-02 13:41
PROVIDERS: Internal Medicine; Physician Assistant Medical; Admitting Provider Anesthesiology; Emergency Provider Emergency Medicine; Visit Provider Hospitalist
DX: T40.601A Poisoning by unspecified narcotics, accidental (unintentional), initial encounter (principal); G93.41 Metabolic encephalopathy; N17.0 Acute kidney failure with tubular necrosis; C85.18 Unspecified B-cell lymphoma, lymph nodes of multiple sites; R18.0 Malignant ascites; I50.22 Chronic systolic (congestive) heart failure; E03.9 Hypothyroidism, unspecified; E86.0 Dehydration; I95.9 Hypotension, unspecified; R00.1 Bradycardia, unspecified; I25.10 Atherosclerotic heart disease of native coronary artery without angina pectoris; D72.829 Elevated white blood cell count, unspecified; Y92.9 Unspecified place or not applicable; Z20.822 Contact with and (suspected) exposure to COVID-19; Z95.1 Presence of aortocoronary bypass graft; Z79.890 Hormone replacement therapy; Z79.899 Other long term (current) drug therapy; Z66 Do not resuscitate
CPT/HCPCS: 36415; 70450; 71045; 71250; 80048; 80053; 80076; 81003; 82140; 82803; 82945; 82947; 83605; 83615; 83690; 83735; 83880; 84100; 84157; 84439; 84443; 84481; 84484; 85025; 85027; 87040; 87071; 87073; 87205; 87635; 89051; 93005; 93308; 96374; 96375; 97116; 97162; 99285; 99291; C1758; J0461; J0696; J1265; J1610

== ENCOUNTER 2020-07-09 13:55 | Outpatient (REF) | payer MEDICARE, OTHER, SELFPAY ==
--- NOTE | ~2020-07-09 | FL_ITS ---
EXAMINATION: FL REPAIR OF PLEURX CATHETER AND PARACENTESIS CLINICAL INFORMATION: Nurse unable to drain PleurX catheter. COMPARISON: 05/27/2020 TECHNIQUE: Replacement of valve on PleurX catheter. Paracentesis. FINDINGS: Informed consent was obtained from the patient prior to the procedure. During this process, the procedure and potential alternatives were explained, along with the intended outcome and benefits. The risks of the procedure, as well as the risk of not doing the procedure, were discussed. The patient was given the opportunity to ask questions regarding the procedure and appeared competent to make medical decisions. A signed consent form which documents this discussion was placed in the medical record. It is noted that the valve of the PleurX catheter has been removed and replaced with a 3-way stopcock. A paracentesis was performed with removal of 2 L of clear yellow fluid. Following this, so that patient can be drained at home, the valve of a recently PleurX catheter was removed and placed on the indwelling PleurX catheter. The valve used was on a catheter which the end of May 2020. The valve is not internal to the patient and is accessed sterilely. Patient tolerated procedure without difficulty. FLUOROSCOPY TIME: No fluoroscopy used. FL/FL fluoroscopy <1hr IMPRESSION: Paracentesis and removal of 3-way stopcock with replacement with PleurX valve.
== END 2020-07-09 13:56 | disposition home or self-care (01) ==
LOC: HO.XRAY 13:55
PROVIDERS: Visit Provider Internal Medicine Medical Oncology
DX: Z46.82 Encounter for fitting and adjustment of non-vascular catheter (principal); R18.0 Malignant ascites
CPT/HCPCS: 49082; 76000

== ENCOUNTER → 2020-07-23 14:18 | Outpatient (BNVA) | payer MEDICARE, OTHER, SELFPAY | PROVIDERS: Visit Provider Internal Medicine Cardiovascular Disease | DX: I42.9 Cardiomyopathy, unspecified (principal); R06.02 Shortness of breath | CPT/HCPCS: 99212 ==

== ENCOUNTER → 2023-10-10 14:31 | Outpatient (RCR) | payer MEDICARE, OTHER, SELFPAY ==
[2019-12-09 15:36] VITALS: BP 156/70; PULSE 73; RESP 18; TEMP 37; O2SAT 98
[2019-12-09 15:37] VITALS: BMI 24.7
--- NOTE | 2019-12-09 15:49 | P.PNHO_ITS ---
Medical Summary - Medical Summary Chief complaint: Painful swelling of rt jaw/rt neck Medical Summary: Diagnosis: Abdominal Lymphadenopathy/ascites August 2018 Diagnosed with liver cirrhosis, abdominal adenopathy and ascites in August 2018. CT abdomen/pelvis with contrast performed 08/11/2018 at [facility] demonstrated moderate abdominal and pelvic ascites. Bulky peripancreatic and retroperitoneal lymphadenopathy, portacaval lymph node measures 4.0 x 2.8 cm. A left periaortic lymph node measures 3.6 x 3.2 cm. Liver cirrhosis with evidence of portal hypertension, mild splenomegaly and perisplenic and perihepatic gastric varices. Malignant ascites not excluded. Paracentesis performed 08/22/2018, ascites was negative for carcinoma. But atypical CD 20 positive B cells which lacks surface light chain expression, negative for CD5 and CD10 comprising 23% of lymphocytes. Raises concern for B- cell lymphoproliferative disorder. Lymph node biopsy from left abdomen performed 11/01/2018. Flow cytometry detected clonal CD 20 positive B-cell population that expresses CD 23 and dim surface lambda light chain, negative for CD5 and CD10. Differential diagnosis includes marginal zone lymphoma and lymphoplasmacytic lymphoma. PET scan performed 11/15/2018 showed intensely FDG avid retroperitoneal, periportal and peripancreatic lymphadenopathy. FDG avid abdominal soft tissue masses intimately associated with loops of bowelFDG avid lymphadenopathy in the mediastinum and cervical lymph nodes as well as bilateral parotid lesions which are intensely FDG avid. Single FDG avid osseous lesion in the right iliac bone showing no corresponding CT findings, nonspecific. FORMERLY [facility] Medical History: Medical History (Last Updated 11/27/19 @ 11:53 by Amrik Mccarthy) Ascites Asthma CAD (coronary artery disease) Cirrhosis of liver with ascites GERD (gastroesophageal reflux disease) High cholesterol Hypertension Hypothyroid Malignant ascites PAD (peripheral artery disease) Surgical History: Surgical History (Last Updated 12/09/19 @ 15:45 by Caridad Cheng RN) History of carotid endarterectomy History of quadruple bypass Hx of angioplasty Hx of CABG Smoking status: Current every day smoker Home Medications and Allergies Home Medications Medication Instructions Recorded Confirmed Type amlodipine 1 tab PO DAILY 11/27/19 11/27/19 History aspirin 1 tab PO DAILY 11/27/19 11/27/19 History carvedilol 1 tab PO BID 11/27/19 11/27/19 History ezetimibe 1 tab PO DAILY 11/27/19 11/27/19 History furosemide 1 tab PO DAILY 11/27/19 11/27/19 History ibuprofen 1 tab PO Q6H PRN 11/27/19 11/27/19 History ipratropium-albuterol [Combivent 1 puff INHALATION QID PRN 11/27/19 11/27/19 History Respimat] levothyroxine 1 tab PO DAILY 11/27/19 11/27/19 History losartan 1 tab PO DAILY 11/27/19 11/27/19 History omeprazole 1 cap PO BID 11/27/19 11/27/19 History spironolactone 1 tab PO BID 11/27/19 11/27/19 History tramadol 1 tab PO Q8H PRN 11/27/19 11/27/19 History umeclidinium [Incruse Ellipta] 1 puff INHALATION DAILY 11/27/19 11/27/19 History Allergies Allergy/AdvReac Type Severity Reaction Status Date / Time atorvastatin AdvReac Unknown NASAL Verified 11/27/19 12:14 BLEEDING Exam Vital signs: Vital Signs Temp 98.6 F 12/09/19 15:36 Pulse 73 12/09/19 15:36 Resp 18 12/09/19 15:36 BP 156/70 H 12/09/19 15:36 Pulse Ox 98 12/09/19 15:36 Intake & Output 12/08/19 12/09/19 12/09/19 18:59 06:59 18:59 Other: Weight 61.3 kg Weight 61.3 kg Body Mass Index 24.7 - Constitutional Present: mild distress - Routine Neck Exam Present: tenderness. Absent: full ROM Comments: Large painful swelling of rt upper neck, involving lower jaw and extending anteriorly in front of the year. Painful to touch, patient unable to open mouth. Submandibular swelling also present, painful. - Routine Respiratory Exam Absent: respiratory distress - Routine Cardiovascular Exam Cardiovascular: Present: S1, S2 Progress Note: A/P (1) Lymphoma Status: Acute Assessment and plan: 1. 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 There is no bulky disease, minimal constitutional symptoms. She was recommended rituximab weekly x4. Unfortunately she developed a severe reaction to rituximab, grade 3. She was discharged after stabilization in the ED. Patient has developed sudden onset swelling involving right parotid region, right upper neck, it is very painful associated with trismus and redness of skin. Her last imaging with a CT neck in March did demonstrate parotid lesions. She did not go for PET-CT that was ordered a month ago. However this degree of swelling has developed only in the last 2 days. This is highly suspicious for infection, I am sending her to the emergency room for further evaluation with CT scan and blood work. 2. She has liver cirrhosis with evidence of portal hypertension, unclear etiology. Hepatitis serologies were negative, no history of alcoholism. She underwent therapeutic paracentesis on 11/28/2019. Patient is being referred to the emergency department. - Time Spent With Patient Total time spent is greater than 50% in coordination of care (as documented) at patient's floor/unit and/or counseling patient: 15 - 24 minutes
--- NOTE | 2019-12-09 16:02 | MHC.HEMONC ---
pt Ben davis called this morning to report swollen nodes under pt neck that are enlarging and making it difficult to eat. Dr Ferreira informed and advised pt to come in. Pt arrived with her susan for f/u with Dr Ferreira. Med record updated and pt seen by Dr Ferreira. Pt is to go directly to ER for evaluation and treatment. Appears to be possible infection vs. lymphoma.
[2019-12-24 13:00] VITALS: BMI 23.3
[2019-12-24 13:01] VITALS: BP 142/60; PULSE 70; RESP 18; TEMP 36.7; O2SAT 98
--- NOTE | 2019-12-24 13:09 | PM.HEMONCPN ---
Medical Summary - Medical Summary Chief complaint: Follow up Medical Summary: Diagnosis: Abdominal Lymphadenopathy/ascites August 2018 Diagnosed with liver cirrhosis, abdominal adenopathy and ascites in August 2018. CT abdomen/pelvis with contrast performed 08/11/2018 at [facility] demonstrated moderate abdominal and pelvic ascites. Bulky peripancreatic and retroperitoneal lymphadenopathy, portacaval lymph node measures 4.0 x 2.8 cm. A left periaortic lymph node measures 3.6 x 3.2 cm. Liver cirrhosis with evidence of portal hypertension, mild splenomegaly and perisplenic and perihepatic gastric varices. Malignant ascites not excluded. Paracentesis performed 08/22/2018, ascites was negative for carcinoma. But atypical CD 20 positive B cells which lacks surface light chain expression, negative for CD5 and CD10 comprising 23% of lymphocytes. Raises concern for B-cell lymphoproliferative disorder. Lymph node biopsy from left abdomen performed 11/01/2018. Flow cytometry detected clonal CD 20 positive B-cell population that expresses CD 23 and dim surface lambda light chain, negative for CD5 and CD10. Differential diagnosis includes marginal zone lymphoma and lymphoplasmacytic lymphoma. PET scan performed 11/15/2018 showed intensely FDG avid retroperitoneal, periportal and peripancreatic lymphadenopathy. FDG avid abdominal soft tissue masses intimately associated with loops of bowelFDG avid lymphadenopathy in the mediastinum and cervical lymph nodes as well as bilateral parotid lesions which are intensely FDG avid. Single FDG avid osseous lesion in the right iliac bone showing no corresponding CT findings, nonspecific. Interval History Interval history: Patient is here in follow-up. She was discharged from the hospital last week. She says that the swelling in her right neck region has gone down a bit but she still has some painful swelling in front of her right ear. She denies fever or chills. She feels weak and tired. She has not yet met with the underground roof bolter. She underwent therapeutic paracentesis in October. She is here to discuss treatment of lymphoma. Review of Systems - Constitutional Reports as per HPI, Reports no additional constitutional complaints, Reports fatigue, Denies fever(s), Reports lack of energy, Reports malaise, Denies night sweats - ENT Reports facial pain, Denies headache(s), Denies hearing loss, Denies hoarseness, Reports neck mass - Cardiovascular Reports no additional cardiovascular complaints, Denies chest pain - Respiratory Reports no additional respiratory complaints, Denies pain on inspiration, Reports dyspnea on exertion, Denies stridor, Denies wheezing [facility] Medical History: Medical History (Last Reviewed 12/10/19 @ 15:20 by Danuta Umana MD) Ascites Asthma CAD (coronary artery disease) Cellulitis Cirrhosis of liver with ascites GERD (gastroesophageal reflux disease) High cholesterol Hypertension Hypothyroid Malignant ascites PAD (peripheral artery disease) Parotid gland enlargement Surgical History: Surgical History (Last Reviewed 12/10/19 @ 15:20 by Danuta Umana MD) History of carotid endarterectomy History of quadruple bypass Hx of angioplasty Hx of CABG Smoking status: Current every day smoker Oncology Screenings - ECOG Performance Status ECOG Performance Status: 3 Home Medications and Allergies Home Medications Medication Instructions Recorded Confirmed Type Combivent Respimat 1 puff INHALATION QID PRN 11/27/19 12/09/19 History Incruse Ellipta 1 puff INHALATION DAILY 11/27/19 12/09/19 History amlodipine 1 tab PO DAILY 11/27/19 12/09/19 History aspirin 1 tab PO DAILY 11/27/19 12/09/19 History carvedilol 1 tab PO BID 11/27/19 12/09/19 History ezetimibe 1 tab PO DAILY 11/27/19 12/09/19 History furosemide 1 tab PO DAILY 11/27/19 12/09/19 History ibuprofen 1 tab PO Q6H PRN 11/27/19 12/09/19 History levothyroxine 1 tab PO DAILY 11/27/19 12/09/19 History losartan 1 tab PO DAILY 11/27/19 12/09/19 History omeprazole 1 cap PO BID 11/27/19 12/09/19 History spironolactone 1 tab PO BID 11/27/19 12/09/19 History tramadol 1 tab PO Q8H PRN 11/27/19 12/09/19 History Allergies Allergy/AdvReac Type Severity Reaction Status Date / Time atorvastatin AdvReac Unknown NASAL Verified 11/27/19 12:14 BLEEDING Exam Vital signs: Vital Signs Temp 98.1 F 12/24/19 13:01 Pulse 70 12/24/19 13:01 Resp 18 12/24/19 13:01 BP 142/60 H 12/24/19 13:01 Pulse Ox 98 11/10/20 13:01 Intake & Output 12/23/19 12/24/19 12/24/19 18:59 06:59 18:59 Other: Weight 58 kg Weight 58 kg Body Mass Index 23.3 - Constitutional Present: no acute distress - Routine HEENT Exam Head: Present: normal inspection Eye: Present: EOMI - Routine Neck Exam Present: lymphadenopathy. Absent: full ROM - Routine Respiratory Exam Absent: respiratory distress - Routine Cardiovascular Exam Cardiovascular: Present: S1, S2 Progress Note: A/P (1) Lymphoma Status: Chronic Assessment and plan: 1. 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 There is no bulky disease, minimal constitutional symptoms. She was recommended rituximab weekly x4. Unfortunately she developed a severe reaction to rituximab, grade 3. She has progressive disease. She did not go for the PET scan which was ordered in October, she is willing to go now. She also wants to discuss treatment. Because of her comorbidities and poor performance status she is not a candidate for combination chemo immunotherapy. Single agent rituximab may be tried again, premedications to prevent infusion reaction will be administered. 2. She has liver cirrhosis with evidence of portal hypertension, unclear etiology. Hepatitis serologies were negative, no history of alcoholism. She appears to have increasing abdominal swelling/ascites. She also has increasing leg swelling. Ultrasound abdomen has been ordered. 3. Cardiomyopathy. She has history of poor cardiac function, EF 20-25% in August 2018. She was advised to follow up with her underground roof bolter. Follow-up next week after PET-CT. - Time Spent With Patient Total time spent is greater than 50% in coordination of care (as documented) at patient's floor/unit and/or counseling patient: 15 - 24 minutes
--- NOTE | 2019-12-24 13:19 | MHC.HEMONC ---
Pt here for f/u with Dr Ferreira. VSS. She will be getting a PET and starting Rituxin after. She had reaction in past so Dr Ferreira ordered Dexamethasone to start the evening bofore and morning of. Pt will order picker and await our call with appointments and directives.
--- NOTE | 2019-12-24 13:38 | MHC.HEMONCSW ---
PER DR BREAUX REQUEST, FAXED MD ORDERS/CLINICALS TO [facility] FOR SCAN NEXT MONDAY.
--- NOTE | 2020-04-17 09:35 | MHC.HEMONCMA ---
Patient scheduled for her paracentesis for 04/20/2020 at 1pm with a 12pm arrival. Must arrive at [facility]. Patient must be NPO 6 hrs before, she can NOT take her aspirin the day of the procedure. Called and spoke with Lien the patient's grand daughter, she is aware of this and will bring
== END | disposition home or self-care (01) ==
LOC: HO.ONC 12-09 15:23
PROVIDERS: Visit Provider Internal Medicine
DX: C83.08 Small cell B-cell lymphoma, lymph nodes of multiple sites (principal); K74.60 Unspecified cirrhosis of liver; K76.6 Portal hypertension; I42.9 Cardiomyopathy, unspecified
CPT/HCPCS: 99213; 99214

== ENCOUNTER → 2023-10-12 11:54 | Outpatient (RCR) | payer MEDICARE, OTHER, SELFPAY ==
[2019-11-26 19:55] VITALS: BMI 21.2
[2019-11-27 12:12] VITALS: BP 160/65; PULSE 56; RESP 18; TEMP 36.6; O2SAT 99
--- NOTE | 2019-11-27 13:27 | HO.RADPN ---
RADIOLOGY Narrative Narrative: right lower quadrant paracentesis performed using 5 fr angiocath. clear yellow fluid removed. no specimen sent.
[2019-11-27] MEDS: Lidocaine HCl 1 % MPF 5 ML VIAL SUBCUT (13:45)
[2019-11-27 13:51] VITALS: BP 173/59; PULSE 53; RESP 16; TEMP 36.6; O2SAT 100
[2019-11-27 14:14] VITALS: BP 168/64; PULSE 52; RESP 18; O2SAT 100
[2019-11-27 14:39] VITALS: BP 167/60; PULSE 56; RESP 16; O2SAT 97
[2019-11-27 15:18] VITALS: BP 161/62; PULSE 62; RESP 16; O2SAT 96
[2019-11-27 15:40] VITALS: BP 165/49; PULSE 54; RESP 16; TEMP 37.1; O2SAT 97
[2020-01-03 13:22] VITALS: BMI 23.4
[2020-01-03 13:23] VITALS: BP 181/75; PULSE 62; RESP 18; TEMP 36.9; O2SAT 99
--- NOTE | 2020-01-03 15:10 | P.PNHO_ITS ---
Medical Summary - Medical Summary Chief complaint: Scheduled follow-up Medical Summary: Diagnosis: Lymphoma/Abdominal Lymphadenopathy/ascites August 2018 Diagnosed with liver cirrhosis, abdominal adenopathy and ascites in August 2018. CT abdomen/pelvis with contrast performed 08/11/2018 at [facility] demonstrated moderate abdominal and pelvic ascites. Bulky peripancreatic and retroperitoneal lymphadenopathy, portacaval lymph node measures 4.0 x 2.8 cm. A left periaortic lymph node measures 3.6 x 3.2 cm. Liver cirrhosis with evidence of portal hypertension, mild splenomegaly and perisplenic and perihepatic gastric varices. Malignant ascites not excluded. Paracentesis performed 08/22/2018, ascites was negative for carcinoma. But atypical CD 20 positive B cells which lacks surface light chain expression, negative for CD5 and CD10 comprising 23% of lymphocytes. Raises concern for B- cell lymphoproliferative disorder. Lymph node biopsy from left abdomen performed 11/01/2018. Flow cytometry detected clonal CD 20 positive B-cell population that expresses CD 23 and dim castro rface lambda light chain, negative for CD5 and CD10. Differential diagnosis includes marginal zone lymphoma and lymphoplasmacytic lymphoma. PET scan performed 11/15/2018 showed intensely FDG avid retroperitoneal, periportal and peripancreatic lymphadenopathy. FDG avid abdominal soft tissue masses intimately associated with loops of bowelFDG avid lymphadenopathy in the mediastinum and cervical lymph nodes as well as bilateral parotid lesions which are intensely FDG avid. Single FDG avid osseous lesion in the right iliac bone showing no corresponding CT findings, nonspecific. Interval History Interval history: Patient is here in follow-up since discharge from the hospital. She continues to feel very weak and tired. She has now decided to not receive any further treatment and received palliative/hospice care. She has met with her senior administrator support and was told about her poor prognosis in terms of her cardiac health. She denies any abdominal pain, fever or chills. Her appetite is poor. She denies any chest pain but she has exertional shortness of breath. Review of Systems - Constitutional Reports as per HPI, Reports no additional constitutional complaints [facility] Medical History: Medical History (Last Reviewed 12/10/19 @ 15:20 by aDnuta Umana MD) Ascites Asthma CAD (coronary artery disease) Cellulitis Cirrhosis of liver with ascites GERD (gastroesophageal reflux disease) High cholesterol Hypertension Hypothyroid Malignant ascites PAD (peripheral artery disease) Parotid gland enlargement Family History: Family History (Last Updated 12/24/19 @ 15:03 by Venus Chapa) Father No problems noted. Mother Rheumatoid arthritis CVD (cardiovascular disease) Surgical History: Surgical History (Last Reviewed 12/10/19 @ 15:20 by Danuta Umana MD) History of carotid endarterectomy History of quadruple bypass Hx of angioplasty Hx of CABG Oncology Screenings - ECOG Performance Status ECOG Performance Status: 3 Home Medications and Allergies Home Medications Medication Instructions Recorded Confirmed Type Combivent Respimat 1 puff INHALATION QID PRN 11/27/19 12/09/19 History Incruse Ellipta 1 puff INHALATION DAILY 11/27/19 12/09/19 History amlodipine 1 tab PO DAILY 11/27/19 12/09/19 History aspirin 1 tab PO DAILY 11/27/19 12/09/19 History ezetimibe 1 tab PO DAILY 11/27/19 12/09/19 History furosemide 1 tab PO DAILY 11/27/19 12/09/19 History ibuprofen 1 tab PO Q6H PRN 11/27/19 12/09/19 History levothyroxine 1 tab PO DAILY 11/27/19 12/09/19 History losartan 1 tab PO DAILY 11/27/19 12/09/19 History omeprazole 1 cap PO BID 11/27/19 12/09/19 History spironolactone 1 tab PO BID 11/27/19 12/09/19 History tramadol 1 tab PO Q8H PRN 11/27/19 12/09/19 History Allergies Allergy/AdvReac Type Severity Reaction Status Date / Time atorvastatin AdvReac Unknown NASAL Verified 11/27/19 12:14 BLEEDING Exam Vital signs: Vital Signs Temp 98.5 F 01/03/20 13:23 Pulse 62 01/03/20 13:23 Resp 18 01/03/20 13:23 BP 181/75 H 01/03/20 13:23 Pulse Ox 99 01/03/20 13:23 Intake & Output 01/02/20 01/03/20 01/03/20 18:59 06:59 18:59 Other: Weight 60 kg Weight 60 kg Body Mass Index 23.4 - Constitutional Present: mild distress - Routine HEENT Exam Head: Present: normal inspection Eye: Present: EOMI - Routine Neck Exam Present: lymphadenopathy - Routine Respiratory Exam Absent: rhonchi, wheezes - Routine Cardiovascular Exam Cardiovascular: Present: S1, S2 - Routine Abdominal Exam Present: distended, soft - Routine Extremities Exam Absent: calf tenderness Data - Labs Labs: 11/27/19 13:02 Lidocaine HCl 1 % MPF [Xylocaine 1 % MPF] 5 ml .ROUTE .STK-MED ONE 11/27/19 13:43 Lidocaine HCl 1 % MPF [Xylocaine 1 % MPF] 5 ml SUBCUT ONCE ONE Progress Note: A/P (1) Lymphoma Status: Chronic Assessment and plan: 1. 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 She was recommended rituximab weekly x4. Unfortunately she developed a severe reaction to rituximab, grade 3. PET scan performed 12/31/2019 shows progression of lymphoma with increase in FDG avidity and size of extensive lymphadenopathy in neck, chest and abdomen. Patient has now decided to forego any chemotherapy or treatment for her lymphoma. She wants to receive palliative/hospice care. She will be referred to this program. - Time Spent With Patient Total time spent is greater than 50% in coordination of care (as documented) at patient's floor/unit and/or counseling patient: 15 - 24 minutes
--- NOTE | 2020-01-03 17:11 | MHC.HEMONC ---
HOSPICE REFERRAL - Dr. Ferreira had a conversation w patient and her granddaughter Lien about Hospice Care. Patient agrees to [facility] Hospice referral. Med. Carmen Asst. to arrange (Warm hand-off given and note left in her mail box to arrange). Pt is currently getting help from her daughter. Granddaughter, Lien Stack and has accompanied her to this visit today. Lien's contact number is [phone]. +
--- NOTE | 2020-01-06 12:49 | MHC.HEMONCMA ---
Called and left a message for Dayanna CORDOVA to call me back so we can arrange [facility]/Hospice/Palliative care for the patient.
--- NOTE | 2020-01-06 16:37 | MHC.HEMONCMA ---
called Dayanna CORDOVA- did the intake for palliative care for patient. I spoke with Maryam, who took the patient's information, she states that she needs a face to face sheet filled out and faxed back, along with insurance information, demographics, and last office note from Dr Ferreira. Faxed over information, waiting for conformation.
--- NOTE | 2020-01-07 13:27 | MHC.HEMONCMA ---
Maryam from [facility] called back and stated that due to the Holiday week, they will not be able to send out a nurse to meet with Diana until next week, I spoke with Dr Ferreira and she stated that this is ok to wait until next week. Maryam stated that their office will contact the patient with the time and date of intake.
--- NOTE | 2020-01-13 11:11 | MHC.HEMONC ---
Palliative Care - I spoke w Mitchell in Intake at [facility], pt. was admitted to their palliative services this Monday, . I also spoke with pt's susan Emmanuel and the pt, they have no questions re: services and are in agreement w the plan set forth by [facility].
--- NOTE | 2020-01-14 15:20 | MHC.HEMONC ---
Tramadol RF - Recvd call from NASRIN Riossenior back end java developer CAROLA (Cherelle ALEXANDRA). Pt needs RF on Tramadol 50 mg q 8* PRN 15 day supply w [address] Ferreira out of the office. Dr. Dean wrote Rx, she was unable to send electronically to [facility] via EMR. NASRIN Rios and pt's Lien davis notified to have family member cone picker here at Onc. Dept between the hours of 8 - 5pm. Agreed to this plan. Rx left by nurses station in locked cabinet.
--- NOTE | 2020-01-30 08:17 | MHC.HEMONCMA ---
Called and spoke with ultrasound, they said they did get my multiple messages but not sure why no one called me back. I asked if we could get the patient scheduled tomorrow for a paracentesis, the patient is on aspirin, she said she does not see anything wrong with that, but needs to talk to Skylar to book it and that she is not in. Ultrasound will call me back when she gets in and schedule this.
--- NOTE | 2020-03-11 11:32 | MHC.HEMONCMA ---
Spoke with ultrasound to schedule the patient for an urgent paracentesis. They will call back with the date and time. I am trying to get her in for or Monday.
--- NOTE | 2020-03-11 14:25 | MHC.HEMONCMA ---
Patient is scheduled for 03/13/2020 at 9:30 am, her paracentesis is scheduled for 11am. She needs to report to [facility], which she will have blood work done. Dr Ferreira needs to addend her last note from 01/03/2020 to state the patient is having alot of abdominal pain and is uncomfortable, in which a paracentesis was ordered. I will fax addended note to [phone]. Alejandra the etl analyst developer called the patient's daughter Lien to explain all of this.
--- NOTE | 2020-03-12 11:21 | MHC.HEMONCMA ---
Addended note faxed to Radiology upstairs for patient's paracentesis tomorrow.
--- NOTE | 2020-04-15 11:26 | MHC.HEMONCMA ---
Called ultrasound yesterday to book patient for a paracentesis and left a voicemail at 11:30. Called and left another voicemail again today at 11:25.
--- NOTE | 2020-04-17 10:27 | MHC.HEMONC ---
Pt called with instructions not to take ASA and motrin the day of procedure (Monday04/20/20)
--- NOTE | 2020-04-17 10:32 | PM.EVENT ---
Patient with B-cell lymphoma and recurrent ascites. Patient is on palliative hospice program. Called by nurse to inform that patient has developed recurrent swelling and abdominal discomfort. She gets relief by intermittent therapeutic paracentesis. This will be scheduled under ultrasound guidance, intervention Radiology Department.
--- NOTE | 2020-04-27 11:12 | MHC.HEMONCSW ---
PER GAIL VISITING NURSES...PALLIATIVE CARE PROGRAM...ONLY NURSING INVOLVED, PER PATIENT REQUEST.
--- NOTE | 2020-05-05 15:03 | PM.HEMONCPN ---
Medical Summary - Medical Summary Date of Service: 05/05/20 Chief complaint: Abdominal swelling and discomfort Medical Summary: Diagnosis: Lymphoma/Abdominal Lymphadenopathy/ascites August 2018 Diagnosed with liver cirrhosis, abdominal adenopathy and ascites in August 2018. CT abdomen/pelvis with contrast performed 08/11/2018 at [facility] demonstrated moderate abdominal and pelvic ascites. Bulky peripancreatic and retroperitoneal lymphadenopathy, portacaval lymph node measures 4.0 x 2.8 cm. A left periaortic lymph node measures 3.6 x 3.2 cm. Liver cirrhosis with evidence of portal hypertension, mild splenomegaly and perisplenic and perihepatic gastric varices. Malignant ascites not excluded. Paracentesis performed 08/22/2018, ascites was negative for carcinoma. But atypical CD 20 positive B cells which lacks surface light chain expression, negative for CD5 and CD10 comprising 23% of lymphocytes. Raises concern for B-cell lymphoproliferative disorder. Lymph node biopsy from left abdomen performed 11/01/2018. Flow cytometry detected clonal CD 20 positive B-cell population that expresses CD 23 and dim surface lambda light chain, negative for CD5 and CD10. Differential diagnosis includes marginal zone lymphoma and lymphoplasmacytic lymphoma. PET scan performed 11/15/2018 showed intensely FDG avid retroperitoneal, periportal and peripancreatic lymphadenopathy. FDG avid abdominal soft tissue masses intimately associated with loops of bowelFDG avid lymphadenopathy in the mediastinum and cervical lymph nodes as well as bilateral parotid lesions which are intensely FDG avid. Single FDG avid osseous lesion in the right iliac bone showing no corresponding CT findings, nonspecific. Interval History Interval history: Patient is here in follow-up. She is now receiving palliative hospice care. She is requiring frequent therapeutic paracentesis. She has significant discomfort when her abdomen gets distended. She denies any fever or chills. She is on a baby aspirin but not taking ibuprofen. She usually stops aspirin 3 days before procedure. Her appetite is poor. She denies nausea or emesis. [facility] Medical History: Medical History (Last Reviewed 12/10/19 @ 15:20 by Danuta Umana MD) Ascites Asthma CAD (coronary artery disease) Cellulitis Cirrhosis of liver with ascites GERD (gastroesophageal reflux disease) High cholesterol Hypertension Hypothyroid Malignant ascites PAD (peripheral artery disease) Parotid gland enlargement Family History: Family History (Last Updated 12/24/19 @ 15:03 by Venus Chapa) Father No problems noted. Mother Rheumatoid arthritis CVD (cardiovascular disease) Surgical History: Surgical History (Last Reviewed 12/10/19 @ 15:20 by Danuta Umana MD) History of carotid endarterectomy History of quadruple bypass Hx of angioplasty Hx of CABG Social History: Social History (Last Reviewed 12/10/19 @ 15:20 by Danuta Umana MD) Living Situation History: Household Members: Children Household Members: Other Housing: Condominium Alcohol History: Alcohol intake: never Alcohol History Details: Alcohol intake frequency: does not drink Tobacco History: Tobacco Type: Cigarette Packs Per Day: 1 Second Hand Smoke Exposure: Yes Advance Directives: Advance Directives: No Advance Directives Information Provided: Yes Occupation Assessmet: service: No Current occupational status: retired Oncology Screenings - ECOG Performance Status ECOG Performance Status: 3 Home Medications and Allergies Home Medications Medication Instructions Recorded Confirmed Type Combivent Respimat 1 puff INHALATION QID PRN 11/27/19 12/09/19 History Incruse Ellipta 1 puff INHALATION DAILY 11/27/19 12/09/19 History amlodipine 1 tab PO DAILY 11/27/19 12/09/19 History aspirin 1 tab PO DAILY 11/27/19 12/09/19 History ezetimibe 1 tab PO DAILY 11/27/19 12/09/19 History furosemide 1 tab PO DAILY 11/27/19 12/09/19 History ibuprofen 1 tab PO Q6H PRN 11/27/19 12/09/19 History levothyroxine 1 tab PO DAILY 11/27/19 12/09/19 History losartan 1 tab PO DAILY 11/27/19 12/09/19 History omeprazole 1 cap PO BID 11/27/19 12/09/19 History spironolactone 1 tab PO BID 11/27/19 12/09/19 History tramadol 1 tab PO Q8H PRN 11/27/19 12/09/19 History Allergies Allergy/AdvReac Type Severity Reaction Status Date / Time atorvastatin AdvReac Unknown NASAL Verified 11/27/19 12:14 BLEEDING Exam Vital signs: Vital Signs Temp 98.5 F 01/03/20 13:23 Pulse 62 01/03/20 13:23 Resp 18 01/03/20 13:23 BP 181/75 H 01/03/20 13:23 Pulse Ox 99 01/03/20 13:23 Weight 60 kg Body Mass Index 23.4 - Constitutional Present: mild distress, chronically ill appearing - Routine HEENT Exam Head: Present: normal inspection - Routine Neck Exam Present: lymphadenopathy - Routine Respiratory Exam Absent: rhonchi, wheezes - Routine Cardiovascular Exam Cardiovascular: Present: S1, S2 - Routine Abdominal Exam Present: distended, soft - Routine Neurological Exam Present: oriented X3 Data - Labs Labs: 11/27/19 13:02 Lidocaine HCl 1 % MPF [Xylocaine 1 % MPF] 5 ml .ROUTE .STK-MED ONE 11/27/19 13:43 Lidocaine HCl 1 % MPF [Xylocaine 1 % MPF] 5 ml SUBCUT ONCE ONE Progress Note: A/P (1) Lymphoma Status: Chronic Assessment and plan: 1. 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 She was recommended rituximab weekly x4. Unfortunately she developed a severe reaction to rituximab, grade 3. PET scan performed 12/31/2019 shows progression of lymphoma with increase in FDG avidity and size of extensive lymphadenopathy in neck, chest and abdomen. Patient has now decided to forego any chemotherapy or treatment for her lymphoma. She is now on palliative hospice program. She is requiring frequent therapeutic paracentesis. I have asked her to discontinue aspirin. She is receiving narcotic pain medications and it is controlling her symptoms. - Time Spent With Patient Total time spent is greater than 50% in coordination of care (as documented) at patient's floor/unit and/or counseling patient: 15 - 24 minutes
[2020-05-05 15:07] VITALS: BP 187/75; PULSE 58; RESP 16; TEMP 37; O2SAT 99; BMI 25.2
--- NOTE | 2020-05-06 10:47 | MHC.HEMONCMA ---
Patient was seen yesterday for a follow up, states she is in alot of pain from the fluid. Clinical summary was reviewed and updated. Patient had labs and will return in 6 months for a follow up.
--- NOTE | 2020-05-06 10:50 | MHC.HEMONCMA ---
Patient has been booked for 05/11/2020 at 1pm for a paracentesis. Per patient's grand daughter they discussed having a catheter placed so she does not need to keep having the paracentesis. I told her to keep Monday's appt and I will talk to the doctor.
--- NOTE | 2020-05-26 14:34 | MHC.HEMONCMA ---
Patient has been scheduled for her pleurx catheter for tomorrow 05/27/2020 at 2pm. Patient's grand daughter Lien is aware. Patient also needs to be NPO for 1 hours before and needs to arrive at for 1pm.
--- NOTE | 2020-05-28 09:37 | MHC.HEMONC ---
Pt had pleurex catheter placed RLQ yesterday. I spoke to Gabriel from [facility]. He will be adela to drain 2-3 times a week per Dr Ferreira.
--- NOTE | 2020-06-02 15:52 | HO.HEMONCPA ---
Rcvd fax stating that rx that was sent to pharmacy for Oxycontin is not covered under patient's plan. S/w Dr Ferreira who adv that she will change rx to morphine 30mg ER. Upon submitting PA request, was notified by [employer] that PA is not required. Letting Dr Ferreira know so she can send new rx.
--- NOTE | 2020-06-03 16:16 | MHC.HEMONC ---
Telephone call from Gabriel from [facility]. He reports that pt's pleurx catheter was drained Monday for 700cc, and yesterday for 450cc. Today he reports there was leaking around the tube, enough where her clothes were wet. Spoke to Skylar in IR, and she states Dr Dacosta is out today, and will be here in the AM. She will speak with her in AM, and will schedule for pt to come in to have drain checked. Spoke to Gabriel and let him know this. Will call him back in AM.
--- NOTE | 2020-06-19 16:38 | MHC.HEMONC ---
Phone call from Gabriel from [facility]. Reported that pt had a fall at home. States she has a gash on her head, family took pt to ED. States she received carin to her head, and will be having head CT. Reported to Dr Ferreira.
--- NOTE | 2020-07-08 15:02 | MHC.HEMONC ---
Pt [facility] nurse, Gabriel, called this morning to discuss pt visit yesterday following inpatient stay. She was in fairly good condition but her pleurex abdominal drain had changed during her admission and wasn't the type that is sterile and drained into bottles. She will be in need of draining soon due to distention. She is on palli care. I researched EMR as well as spoke to [facility] [employer] and neither had explanation of drain change that was documented here in Radiology at [facility]. I spoke with Dr Dean (covering Dr Ferreira) and pt is to have appt in IR to see what drain is intact so that a procedure for draining could be ordered for [facility] RN to follow. Pt will be seen at 2 p.m. tomorrow in Radiology.
--- NOTE | 2020-07-14 11:00 | MHC.HEMONC ---
Call from A nurse Gabriel this AM. Reports that pt has new open areas to right buttock the size of a pencil eraser. Area on coccyx has scabbed over. He states pt is being turned frequently. Dr Ferreira notified.
--- NOTE | 2021-05-13 13:37 | MHC.HEMONCSW ---
LATE ENTRY PT LAST YEAR.
== END | disposition home or self-care (01) ==
LOC: HO.ONC 11-27 11:37
PROVIDERS: Visit Provider Internal Medicine
DX: C85.18 Unspecified B-cell lymphoma, lymph nodes of multiple sites (principal); R18.8 Other ascites; Z51.5 Encounter for palliative care; Z79.891 Long term (current) use of opiate analgesic
CPT/HCPCS: 49083; 99213